=== PATIENT | male | born 1980 | race Two or more races ===

== ENCOUNTER 2018-12-13 12:22 | Inpatient (IN) | payer MEDICARE, OTHER ==
[~2018-12-13] VITALS: Ht 182.9 cm; Wt 82.2 kg
[2018-12-13] MEDS ORDERED: LAMO25 PO (13:00)
[2018-12-13] MEDS ORDERED: OLAN10TA6 PO (13:00)
[2018-12-13] MEDS ORDERED: PALI234D IM (13:00)
[2018-12-13] MEDS ORDERED: DIPH25 PO (13:00)
[2018-12-13] MEDS ORDERED: HALOPERIDOL LACTATE 5 MG/ML VIAL IM ONE (14:15)
[2018-12-13] MEDS ORDERED: LORazepam 2 MG/ML VIAL IM ONE (14:15)
[2018-12-13] MEDS ORDERED: DiphenhydrAMINE HCL 50 MG/ML VIAL IM ONE (14:15)
[2018-12-13 14:39] LABS: AMPHET/METH SCREEN,URINE POSITIVE (NEGATIVE); BARBITURATE SCREEN, URINE NEGATIVE (NEGATIVE); BENZODIAZEPINES SCREEN,URINE NEGATIVE (NEGATIVE); CANNABINOID SCREEN,URINE NEGATIVE (NEGATIVE); COCAINE SCREEN,URINE NEGATIVE (NEGATIVE); METHADONE SCREEN, URINE NEGATIVE (NEGATIVE); OPIATE SCREEN,URINE NEGATIVE (NEGATIVE)
[2018-12-13 14:40] LABS: PHENCYCLIDINE SCREEN,URINE NEGATIVE (NEGATIVE)
[2018-12-13 14:47] LABS: BASOPHILS % (AUTO) 0.3 % (0.0-2.0); EOSINOPHILS % (AUTO) 1.5 % (1.0-6.0); HEMATOCRIT 43.9 % (41-53); HEMOGLOBIN 15.2 g/dL (13.5-17.5); LYMPHOCYTES # (AUTO) 2.7 K/uL (1.0-4.8); MEAN CORPUSCULAR HEMOGLOBIN 31.7 pg (26.0-34.0); MEAN CORPUSCULAR HGB CONC 34.5 G/dL (31.0-37.0); MEAN CORPUSCULAR VOLUME 92 fL (80-100); MONOCYTES # (AUTO) 0.7 K/uL (0.1-1.0); MONOCYTES % (AUTO) 8.6 % (2.0-9.0); NEUTROPHILS # (AUTO) 4.7 K/uL (1.8-7.7); NEUTROPHILS % (AUTO) 56.6 % (40.0-70.0); PLATELET COUNT (AUTO) 258 K/uL (150-450); RED BLOOD CELL COUNT(AUTO) 4.78 MIL/uL (4.50-5.90)
[2018-12-13 14:57] LABS: ANION GAP 7 mmol/L (8-16); CALCIUM, TOTAL 8.7 mg/dL (8.8-10.5); CARBON DIOXIDE 28 mmol/L (22-29); CHLORIDE 104 mmol/L (98-107); GLOMERULAR FILTR. RATE CALC > 60 mL/min (>60); GLUCOSE,RANDOM 94 mg/dL (70-110); SODIUM SERUM 139 mmol/L (136-145); UREA NITROGEN, BLOOD 15 mg/dL (7-18)
[2018-12-13 15:02] LABS: ALANINE AMINOTRANSFERASE 38 U/L (12-78); ALKALINE PHOSPHATASE 109 U/L (46-116); ASPARTATE AMINOTRANSFERASE 28 U/L (15-37); BILIRUBIN,TOTAL 0.3 mg/dL (0.1-1.0); TOTAL PROTEIN, SERUM 7.5 g/dL (6.4-8.2)
[2018-12-13] MEDS ORDERED: HALOPERIDOL 5 MG TABLET PO PRN (16:00)
[2018-12-13] MEDS ORDERED: ZOLPIDEM TARTRATE 10 MG TABLET PO PRN (16:00)
[2018-12-13 18:23] VITALS: BP 115/55
[2018-12-13 18:43] VITALS: BP 115/55
[2018-12-13] MEDS ORDERED: IBUPROFEN 600 MG TABLET PO PRN (19:15)
[2018-12-13] MEDS ORDERED: CloNIDine HCL 0.1 MG TABLET PO PRN (19:15)
[2018-12-13] MEDS ORDERED: ONDANSETRON HCL 4 MG TABLET PO PRN (19:15)
[2018-12-13] MEDS ORDERED: ACETAMINOPHEN 325 MG TABLET PO PRN (19:15)
[2018-12-13] MEDS ORDERED: BACITRACIN 28.4 GM OINTMENT TP PRN (19:15)
[2018-12-13] MEDS ORDERED: ALBUTEROL SULFATE HFA 90 MCG/PUFF 8 GM INHALER IH PRN (19:15)
[2018-12-13] MEDS ORDERED: LOPERAMIDE HCL 2 MG CAPSULE PO PRN (19:15)
[2018-12-13] MEDS ORDERED: MAG HYDROX/AL HYDROX/SIMETH ES 30 ML SUSPENSION UDCUP PO PRN (19:15)
[2018-12-13] MEDS ORDERED: PETROLATUM,WHITE 28 GM JELLY TP PRN (19:15)
[2018-12-13] MEDS ORDERED: MAGNESIUM HYDROXIDE SUSPENSION 30 ML UDCUP PO PRN (19:15)
[2018-12-14 06:45] VITALS: BP 126/84
[2018-12-14 06:47] VITALS: BP 109/70
[2018-12-14 08:09] VITALS: BP 107/70
[2018-12-14] MEDS: OMEPRAZOLE 20 MG CAPSULE PO SCH (09:18)
[2018-12-14] MEDS: DOCUSATE SODIUM 100 MG CAPSULE PO SCH (09:18)
[2018-12-14] MEDS ORDERED: PALIPERIDONE PALMITATE 234 MG/1.5 ML SYRINGE IM ONE (12:30)
[2018-12-14] MEDS ORDERED: TUBERCULIN, PURIFIED PROTEIN DERIVATIVE 5 TU/0.1 ML SYRINGE ID ONE (13:15)
[2018-12-14 16:00] VITALS: BP 109/65
[2018-12-14] MEDS: ClonazePAM 0.5 MG TABLET PO SCH (16:39)
[2018-12-14] MEDS: LamoTRIgine 25 MG TABLET PO SCH (16:39)
[2018-12-14] MEDS: BENZTROPINE MESYLATE 1 MG TABLET PO SCH (16:39)
[2018-12-15 06:42] VITALS: BP 113/74
[2018-12-15] MEDS: DOCUSATE SODIUM 100 MG CAPSULE PO SCH (08:49)
[2018-12-15] MEDS: LamoTRIgine 25 MG TABLET PO SCH ×2 (08:49→16:48)
[2018-12-15] MEDS: BENZTROPINE MESYLATE 1 MG TABLET PO SCH ×2 (08:49→16:48)
[2018-12-15] MEDS: OMEPRAZOLE 20 MG CAPSULE PO SCH (08:49)
[2018-12-15] MEDS: ClonazePAM 0.5 MG TABLET PO SCH ×2 (08:49→16:48)
[2018-12-15] MEDS: LORazepam 2 MG TABLET PO PRN ×2 (12:48→16:48)
[2018-12-16 08:00] VITALS: BP 112/74
[2018-12-16] MEDS: BENZTROPINE MESYLATE 1 MG TABLET PO SCH (08:33)
[2018-12-16] MEDS: DOCUSATE SODIUM 100 MG CAPSULE PO SCH (08:33)
[2018-12-16] MEDS: ClonazePAM 0.5 MG TABLET PO SCH (08:33)
[2018-12-16] MEDS: LamoTRIgine 25 MG TABLET PO SCH (08:34)
[2018-12-16] MEDS: OMEPRAZOLE 20 MG CAPSULE PO SCH (08:34)
[2018-12-16] MEDS ORDERED: TUBERCULIN, PURIFIED PROTEIN DERIVATIVE 5 TU/0.1 ML SYRINGE ID ONE (09:45)
[2018-12-16] MEDS ORDERED: BENZ1TAB10 PO (11:19)
[2018-12-16] MEDS ORDERED: CLON.5 PO (11:19)
[2018-12-16] MEDS ORDERED: OMEP20 PO (11:19)
[2018-12-16] MEDS ORDERED: DOCU-275 PO (11:19)
[2018-12-16] MEDS ORDERED: PALI234D IM (11:21)
== END 2018-12-16 11:55 | disposition short-term general hospital (02) | DRG 885 ==
LOC: EMS 12:23 → UNDOADMIN 16:37 → B3A 16:37
PROVIDERS: ADMIT Psychiatry & Neurology Psychiatry; ATTEND Psychiatry & Neurology Psychiatry
DX: F20.0 Paranoid schizophrenia (principal); R45.851 Suicidal ideations; F31.9 Bipolar disorder, unspecified; G47.00 Insomnia, unspecified; K59.00 Constipation, unspecified
CPT/HCPCS: G0480; J1200; J1630; J2060

== ENCOUNTER 2018-12-16 12:01 | Inpatient (IN) | payer MEDICARE, MEDICAID ==
[~2018-12-16] VITALS: Ht 180.3 cm; Wt 81.2 kg
[~2018-12-16 12:01] MED LIST: BENZ1TAB10 PO; CLON.5 PO; DIPH25 PO; DIVA-78 PO; DOCU-275 PO; ESCI10TA PO; LAMO25TA25 PO; OLAN10TA6 PO; OMEP20 PO; PALI234D IM; TERB15CR TP
[2018-12-16 13:07] VITALS: BP 121/72
[2018-12-16] MEDS ORDERED: TUBERCULIN, PURIFIED PROTEIN DERIVATIVE 5 TU/0.1 ML SYRINGE ID ONE (13:45)
[2018-12-16] MEDS ORDERED: PNEUMOCOCCAL VACCINE POLYVALENT 0.5 ML VIAL [PPSV23] IM ONE (14:30)
[2018-12-16] MEDS ORDERED: INFLUENZA VIRUS VACCINE QVS 2019-20 (3YR+)/PF 60 MCG/0.5 ML SYRINGE IM ONE (14:30)
[2018-12-16] MEDS: ClonazePAM 0.5 MG TABLET PO SCH (17:11)
[2018-12-16] MEDS: BENZTROPINE MESYLATE 1 MG TABLET PO SCH (17:11)
[2018-12-16] MEDS: LamoTRIgine 25 MG TABLET PO SCH (17:11)
[2018-12-16] MEDS: LORazepam 2 MG TABLET PO PRN (20:01)
[2018-12-17] MEDS: BENZTROPINE MESYLATE 1 MG TABLET PO SCH ×2 (08:07→16:27)
[2018-12-17] MEDS: ClonazePAM 0.5 MG TABLET PO SCH ×2 (08:07→16:27)
[2018-12-17] MEDS: LamoTRIgine 25 MG TABLET PO SCH ×2 (08:07→16:27)
[2018-12-17] MEDS: LORazepam 2 MG TABLET PO PRN (15:05)
[2018-12-18] MEDS: ClonazePAM 0.5 MG TABLET PO SCH ×2 (08:38→16:29)
[2018-12-18] MEDS: BENZTROPINE MESYLATE 1 MG TABLET PO SCH ×2 (08:38→16:29)
[2018-12-18] MEDS: LamoTRIgine 25 MG TABLET PO SCH ×2 (08:38→16:29)
[2018-12-18] MEDS: NICOTINE POLACRILEX 2 MG LOZENGE PO PRN ×2 (13:06→18:19)
[2018-12-18] MEDS: LORazepam 2 MG TABLET PO PRN ×2 (13:39→19:11)
[2018-12-18 16:10] VITALS: BP 102/70
[2018-12-18] MEDS ORDERED: IBUPROFEN 600 MG TABLET PO PRN (20:15)
[2018-12-18] MEDS: ZOLPIDEM TARTRATE 10 MG TABLET PO PRN (21:07)
[2018-12-19] MEDS: BENZTROPINE MESYLATE 1 MG TABLET PO SCH ×2 (08:32→17:44)
[2018-12-19] MEDS: ClonazePAM 0.5 MG TABLET PO SCH ×2 (08:32→17:44)
[2018-12-19] MEDS: LamoTRIgine 25 MG TABLET PO SCH ×2 (08:32→17:44)
[2018-12-19 08:49] VITALS: BP 99/57
[2018-12-19] MEDS: LORazepam 2 MG TABLET PO PRN (14:25)
[2018-12-19 16:25] VITALS: BP 106/60
[2018-12-20 00:16] VITALS: BP 106/62
[2018-12-20 08:31] VITALS: BP 122/77
[2018-12-20] MEDS: BENZTROPINE MESYLATE 1 MG TABLET PO SCH ×2 (08:52→16:30)
[2018-12-20] MEDS: ClonazePAM 0.5 MG TABLET PO SCH ×2 (08:52→16:30)
[2018-12-20] MEDS: LamoTRIgine 25 MG TABLET PO SCH ×2 (08:52→16:30)
[2018-12-20] MEDS: LORazepam 2 MG TABLET PO PRN ×2 (12:37→18:21)
[2018-12-21 08:16] VITALS: BP 109/61
[2018-12-21] MEDS: LamoTRIgine 25 MG TABLET PO SCH ×2 (08:30→16:37)
[2018-12-21] MEDS: BENZTROPINE MESYLATE 1 MG TABLET PO SCH ×2 (08:30→16:37)
[2018-12-21] MEDS: ClonazePAM 0.5 MG TABLET PO SCH ×2 (08:30→16:37)
[2018-12-21] MEDS: LORazepam 2 MG TABLET PO PRN ×2 (11:58→19:38)
[2018-12-21 16:08] VITALS: BP 109/69
[2018-12-21] MEDS ORDERED: CloNIDine HCL 0.1 MG TABLET PO PRN (22:00)
[2018-12-21] MEDS ORDERED: PETROLATUM,WHITE 28 GM JELLY TP PRN (22:00)
[2018-12-21] MEDS ORDERED: LOPERAMIDE HCL 2 MG CAPSULE PO PRN (22:00)
[2018-12-21] MEDS ORDERED: ACETAMINOPHEN 325 MG TABLET PO PRN (22:00)
[2018-12-21] MEDS ORDERED: ONDANSETRON HCL 4 MG TABLET PO PRN (22:00)
[2018-12-21] MEDS ORDERED: BACITRACIN 28.4 GM OINTMENT TP PRN (22:00)
[2018-12-21] MEDS ORDERED: ALBUTEROL SULFATE HFA 90 MCG/PUFF 8 GM INHALER IH PRN (22:00)
[2018-12-21] MEDS ORDERED: MAGNESIUM HYDROXIDE SUSPENSION 30 ML UDCUP PO PRN (22:00)
[2018-12-22 08:12] LABS: CHOL/HDL RATIO 5.9 (4.2-7.3)
[2018-12-22] MEDS: ClonazePAM 0.5 MG TABLET PO SCH ×2 (08:18→16:26)
[2018-12-22] MEDS: OMEPRAZOLE 20 MG CAPSULE PO SCH (08:18)
[2018-12-22] MEDS: DOCUSATE SODIUM 100 MG CAPSULE PO SCH (08:18)
[2018-12-22] MEDS: BENZTROPINE MESYLATE 1 MG TABLET PO SCH ×2 (08:18→16:26)
[2018-12-22] MEDS: LamoTRIgine 25 MG TABLET PO SCH ×2 (08:19→16:27)
[2018-12-22 08:53] VITALS: BP 104/67
[2018-12-22] MEDS ORDERED: LamoTRIgine 25 MG TABLET PO SCH (09:00)
[2018-12-22 16:08] VITALS: BP 108/62
[2018-12-22] MEDS: LORazepam 2 MG TABLET PO PRN (19:49)
[2018-12-22] MEDS: ZOLPIDEM TARTRATE 10 MG TABLET PO PRN (21:31)
[2018-12-23 07:15] VITALS: BP 104/64
[2018-12-23 08:24] VITALS: BP 109/68
[2018-12-23] MEDS: DIAZEPAM 5 MG TABLET PO SCH ×2 (09:12→16:31)
[2018-12-23] MEDS: BENZTROPINE MESYLATE 1 MG TABLET PO SCH ×2 (09:12→16:31)
[2018-12-23] MEDS: OMEPRAZOLE 20 MG CAPSULE PO SCH (09:12)
[2018-12-23] MEDS: DOCUSATE SODIUM 100 MG CAPSULE PO SCH (09:12)
[2018-12-23] MEDS: LamoTRIgine 25 MG TABLET PO SCH ×2 (09:31→16:31)
[2018-12-23] MEDS: LORazepam 2 MG TABLET PO PRN ×2 (11:50→19:35)
[2018-12-23 16:31] VITALS: BP 107/67
[2018-12-23] MEDS: NICOTINE POLACRILEX 2 MG LOZENGE PO PRN (18:21)
[2018-12-24 01:09] VITALS: BP 108/69
[2018-12-24 08:24] VITALS: BP 118/72
[2018-12-24] MEDS: DIAZEPAM 5 MG TABLET PO SCH ×2 (08:32→16:21)
[2018-12-24] MEDS: DOCUSATE SODIUM 100 MG CAPSULE PO SCH (08:32)
[2018-12-24] MEDS: LamoTRIgine 25 MG TABLET PO SCH ×2 (08:33→16:21)
[2018-12-24] MEDS: OMEPRAZOLE 20 MG CAPSULE PO SCH (08:33)
[2018-12-24] MEDS: BENZTROPINE MESYLATE 1 MG TABLET PO SCH ×2 (08:33→16:21)
[2018-12-24 16:10] VITALS: BP 112/72
[2018-12-24] MEDS: LORazepam 2 MG TABLET PO PRN ×2 (19:05→23:05)
[2018-12-24] MEDS: ZOLPIDEM TARTRATE 10 MG TABLET PO PRN (22:29)
[2018-12-24] MEDS: NICOTINE POLACRILEX 2 MG LOZENGE PO PRN (23:32)
[2018-12-25 06:55] VITALS: BP 120/64
[2018-12-25 08:20] VITALS: BP 132/91
[2018-12-25] MEDS: DIAZEPAM 5 MG TABLET PO SCH ×2 (08:32→16:04)
[2018-12-25] MEDS: LamoTRIgine 25 MG TABLET PO SCH ×2 (08:32→16:04)
[2018-12-25] MEDS: OMEPRAZOLE 20 MG CAPSULE PO SCH (08:32)
[2018-12-25] MEDS: BENZTROPINE MESYLATE 1 MG TABLET PO SCH ×2 (08:32→16:04)
[2018-12-25] MEDS: DOCUSATE SODIUM 100 MG CAPSULE PO SCH (09:00)
[2018-12-25] MEDS: NICOTINE POLACRILEX 2 MG LOZENGE PO PRN ×4 (09:49→22:55)
[2018-12-25] MEDS: LORazepam 2 MG TABLET PO PRN ×3 (10:06→20:44)
[2018-12-25] MEDS: ZOLPIDEM TARTRATE 10 MG TABLET PO PRN (20:42)
[2018-12-26] MEDS: NICOTINE POLACRILEX 2 MG LOZENGE PO PRN ×5 (00:56→20:36)
[2018-12-26 01:10] VITALS: BP 122/78
[2018-12-26] MEDS: LORazepam 2 MG TABLET PO PRN ×3 (01:14→20:36)
[2018-12-26 08:31] VITALS: BP 124/81
[2018-12-26] MEDS: DOCUSATE SODIUM 100 MG CAPSULE PO SCH (09:00)
[2018-12-26] MEDS: BENZTROPINE MESYLATE 1 MG TABLET PO SCH ×2 (09:07→16:03)
[2018-12-26] MEDS: OMEPRAZOLE 20 MG CAPSULE PO SCH (09:07)
[2018-12-26] MEDS: LamoTRIgine 25 MG TABLET PO SCH ×2 (09:08→16:03)
[2018-12-26] MEDS: DIAZEPAM 5 MG TABLET PO SCH ×2 (09:08→16:03)
[2018-12-26 16:09] VITALS: BP 118/72
[2018-12-27 05:18] VITALS: BP 110/70
[2018-12-27] MEDS: BENZTROPINE MESYLATE 1 MG TABLET PO SCH ×2 (08:24→16:02)
[2018-12-27] MEDS: OMEPRAZOLE 20 MG CAPSULE PO SCH (08:24)
[2018-12-27] MEDS: DOCUSATE SODIUM 100 MG CAPSULE PO SCH (08:25)
[2018-12-27] MEDS: LamoTRIgine 25 MG TABLET PO SCH ×2 (08:25→16:02)
[2018-12-27] MEDS: DIAZEPAM 5 MG TABLET PO SCH ×2 (08:25→16:02)
[2018-12-27] MEDS: NICOTINE POLACRILEX 2 MG LOZENGE PO PRN ×6 (11:39→22:11)
[2018-12-27] MEDS: LORazepam 2 MG TABLET PO PRN ×3 (11:43→22:11)
[2018-12-27 17:20] VITALS: BP 113/64
[2018-12-27 18:10] VITALS: BP 115/78
[2018-12-27] MEDS: ZOLPIDEM TARTRATE 10 MG TABLET PO PRN (20:13)
[2018-12-28 00:20] VITALS: BP 101/69
[2018-12-28] MEDS: IBUPROFEN 800 MG TABLET PO PRN ×2 (00:23→12:27)
[2018-12-28] MEDS: NICOTINE POLACRILEX 2 MG LOZENGE PO PRN ×5 (00:23→20:31)
[2018-12-28 00:32] VITALS: BP 110/68
[2018-12-28] MEDS: LamoTRIgine 25 MG TABLET PO SCH ×2 (08:21→16:26)
[2018-12-28] MEDS: DIAZEPAM 5 MG TABLET PO SCH ×2 (08:21→16:26)
[2018-12-28] MEDS: BENZTROPINE MESYLATE 1 MG TABLET PO SCH ×2 (08:21→16:26)
[2018-12-28] MEDS: OMEPRAZOLE 20 MG CAPSULE PO SCH (08:21)
[2018-12-28] MEDS: DOCUSATE SODIUM 100 MG CAPSULE PO SCH (08:21)
[2018-12-28] MEDS: LORazepam 2 MG TABLET PO PRN ×3 (11:56→20:34)
[2018-12-28 16:15] VITALS: BP 117/68
[2018-12-28] MEDS: ZOLPIDEM TARTRATE 10 MG TABLET PO PRN (21:11)
[2018-12-28 21:12] VITALS: BP 110/67
[2018-12-28] MEDS: TiZANidine HCL 4 MG TABLET PO PRN (21:12)
[2018-12-29 02:00] VITALS: BP 120/81
[2018-12-29] MEDS: LORazepam 2 MG TABLET PO PRN ×4 (02:02→15:54)
[2018-12-29] MEDS: NICOTINE POLACRILEX 2 MG LOZENGE PO PRN ×6 (02:03→20:10)
[2018-12-29 08:07] VITALS: BP 118/67
[2018-12-29] MEDS: DOCUSATE SODIUM 100 MG CAPSULE PO SCH (08:58)
[2018-12-29] MEDS: BENZTROPINE MESYLATE 1 MG TABLET PO SCH ×2 (08:58→16:30)
[2018-12-29] MEDS: DIAZEPAM 5 MG TABLET PO SCH ×2 (08:58→20:09)
[2018-12-29] MEDS: OMEPRAZOLE 20 MG CAPSULE PO SCH (08:58)
[2018-12-29] MEDS: LamoTRIgine 25 MG TABLET PO SCH ×2 (08:58→16:30)
[2018-12-29 16:19] VITALS: BP 106/70
[2018-12-29] MEDS: ZOLPIDEM TARTRATE 10 MG TABLET PO PRN (21:01)
[2018-12-30 04:29] VITALS: BP 110/68
[2018-12-30 08:35] VITALS: BP 112/60
[2018-12-30] MEDS: LamoTRIgine 25 MG TABLET PO SCH ×2 (09:02→16:32)
[2018-12-30] MEDS: OMEPRAZOLE 20 MG CAPSULE PO SCH (09:02)
[2018-12-30] MEDS: DIAZEPAM 5 MG TABLET PO SCH ×2 (09:02→17:02)
[2018-12-30] MEDS: DOCUSATE SODIUM 100 MG CAPSULE PO SCH (09:02)
[2018-12-30] MEDS: BENZTROPINE MESYLATE 1 MG TABLET PO SCH ×2 (09:02→16:32)
[2018-12-30] MEDS: LORazepam 2 MG TABLET PO PRN ×3 (10:30→20:06)
[2018-12-30] MEDS: NICOTINE POLACRILEX 2 MG LOZENGE PO PRN ×5 (10:30→21:35)
[2018-12-30 16:12] VITALS: BP 109/80
[2018-12-30] MEDS: ZOLPIDEM TARTRATE 10 MG TABLET PO PRN (21:01)
[2018-12-31 03:00] VITALS: BP 115/83
[2018-12-31] MEDS: LORazepam 2 MG TABLET PO PRN ×4 (03:50→20:12)
[2018-12-31] MEDS: NICOTINE POLACRILEX 2 MG LOZENGE PO PRN ×7 (06:42→23:02)
[2018-12-31] MEDS: OMEPRAZOLE 20 MG CAPSULE PO SCH (08:05)
[2018-12-31] MEDS: BENZTROPINE MESYLATE 1 MG TABLET PO SCH ×2 (08:05→16:01)
[2018-12-31] MEDS: LamoTRIgine 25 MG TABLET PO SCH ×2 (08:05→16:00)
[2018-12-31] MEDS: DOCUSATE SODIUM 100 MG CAPSULE PO SCH (08:05)
[2018-12-31] MEDS: HALOPERIDOL 5 MG TABLET PO PRN (08:05)
[2018-12-31] MEDS: DIAZEPAM 5 MG TABLET PO SCH ×2 (08:05→16:00)
[2018-12-31 08:41] VITALS: BP 113/68
[2018-12-31 10:23] LABS: ANION GAP 10 mmol/L (8-16); CALCIUM, TOTAL 8.8 mg/dL (8.8-10.5); CARBON DIOXIDE 25 mmol/L (22-29); CHLORIDE 102 mmol/L (98-107); CREATININE 0.78 mg/dL (0.60-1.30); GLOMERULAR FILTR. RATE CALC > 60 mL/min (>60); GLUCOSE,RANDOM 109 mg/dL (70-110); POTASSIUM 4.2 mmol/L (3.5-5.1); SODIUM SERUM 137 mmol/L (136-145); UREA NITROGEN, BLOOD 14 mg/dL (7-18)
[2018-12-31 16:30] VITALS: BP 124/85
[2018-12-31] MEDS: ZOLPIDEM TARTRATE 10 MG TABLET PO PRN (21:20)
[2019-01-01 00:57] VITALS: BP 120/81
[2019-01-01] MEDS: NICOTINE POLACRILEX 2 MG LOZENGE PO PRN ×6 (07:44→21:45)
[2019-01-01] MEDS: LORazepam 2 MG TABLET PO PRN ×3 (07:49→19:36)
[2019-01-01] MEDS: DOCUSATE SODIUM 100 MG CAPSULE PO SCH (08:00)
[2019-01-01] MEDS: DIAZEPAM 5 MG TABLET PO SCH ×2 (08:01→16:30)
[2019-01-01] MEDS: LamoTRIgine 25 MG TABLET PO SCH ×2 (08:01→16:30)
[2019-01-01] MEDS: BENZTROPINE MESYLATE 1 MG TABLET PO SCH ×2 (08:01→16:30)
[2019-01-01] MEDS: OMEPRAZOLE 20 MG CAPSULE PO SCH (08:01)
[2019-01-01 08:06] VITALS: BP 118/85
[2019-01-01 16:10] VITALS: BP 116/78
[2019-01-01] MEDS: ZOLPIDEM TARTRATE 10 MG TABLET PO PRN (20:45)
[2019-01-02] MEDS: LORazepam 2 MG TABLET PO PRN ×4 (00:01→21:29)
[2019-01-02] MEDS: NICOTINE POLACRILEX 2 MG LOZENGE PO PRN ×8 (00:01→22:34)
[2019-01-02 00:02] VITALS: BP 120/81
[2019-01-02 08:05] VITALS: BP 115/81
[2019-01-02] MEDS: DOCUSATE SODIUM 100 MG CAPSULE PO SCH (08:26)
[2019-01-02] MEDS: OMEPRAZOLE 20 MG CAPSULE PO SCH (08:26)
[2019-01-02] MEDS: DIAZEPAM 5 MG TABLET PO SCH ×2 (08:26→18:29)
[2019-01-02] MEDS: BENZTROPINE MESYLATE 1 MG TABLET PO SCH ×2 (08:26→16:37)
[2019-01-02] MEDS: LamoTRIgine 25 MG TABLET PO SCH ×2 (08:26→16:37)
[2019-01-02 16:09] VITALS: BP 117/87
[2019-01-02] MEDS: ZOLPIDEM TARTRATE 10 MG TABLET PO PRN (20:48)
[2019-01-02 23:52] VITALS: BP 115/86
[2019-01-03] MEDS: NICOTINE POLACRILEX 2 MG LOZENGE PO PRN ×8 (00:35→20:33)
[2019-01-03] MEDS: MAG HYDROX/AL HYDROX/SIMETH ES 30 ML SUSPENSION UDCUP PO PRN (01:14)
[2019-01-03 03:06] VITALS: BP 110/73
[2019-01-03] MEDS: LORazepam 2 MG TABLET PO PRN ×3 (03:07→19:07)
[2019-01-03] MEDS: BENZTROPINE MESYLATE 1 MG TABLET PO SCH ×2 (08:18→16:02)
[2019-01-03] MEDS: DOCUSATE SODIUM 100 MG CAPSULE PO SCH (08:18)
[2019-01-03] MEDS: OMEPRAZOLE 20 MG CAPSULE PO SCH (08:18)
[2019-01-03] MEDS: LamoTRIgine 25 MG TABLET PO SCH ×2 (08:18→16:03)
[2019-01-03] MEDS: DIAZEPAM 5 MG TABLET PO SCH ×2 (08:18→16:02)
[2019-01-03 08:40] VITALS: BP 122/80
[2019-01-03] MEDS: ASPIRIN/ACETAMINOPHEN/CAFFEINE 250-250-65 MG TABLET PO PRN (15:45)
[2019-01-03 16:26] VITALS: BP 107/79
[2019-01-03] MEDS: ZOLPIDEM TARTRATE 10 MG TABLET PO PRN (20:59)
[2019-01-04] MEDS: LORazepam 2 MG TABLET PO PRN ×4 (00:06→16:01)
[2019-01-04 00:36] VITALS: BP 110/68
[2019-01-04] MEDS: NICOTINE POLACRILEX 2 MG LOZENGE PO PRN ×6 (00:51→20:19)
[2019-01-04 08:16] VITALS: BP 124/88
[2019-01-04] MEDS: LamoTRIgine 25 MG TABLET PO SCH ×2 (08:19→16:28)
[2019-01-04] MEDS: DOCUSATE SODIUM 100 MG CAPSULE PO SCH (08:20)
[2019-01-04] MEDS: DIAZEPAM 5 MG TABLET PO SCH ×2 (08:20→19:02)
[2019-01-04] MEDS: OMEPRAZOLE 20 MG CAPSULE PO SCH (08:20)
[2019-01-04] MEDS: BENZTROPINE MESYLATE 1 MG TABLET PO SCH ×2 (08:20→16:28)
[2019-01-04] MEDS: ASPIRIN/ACETAMINOPHEN/CAFFEINE 250-250-65 MG TABLET PO PRN ×2 (08:23→17:41)
[2019-01-04 16:02] VITALS: BP 117/77
[2019-01-04 17:43] VITALS: BP 122/77
[2019-01-04] MEDS: ZOLPIDEM TARTRATE 10 MG TABLET PO PRN (21:48)
[2019-01-05] MEDS ORDERED: ASPIRIN/ACETAMINOPHEN/CAFFEINE 250-250-65 MG TABLET PO PRN
[2019-01-05] MEDS: LORazepam 2 MG TABLET PO PRN ×4 (00:23→16:20)
[2019-01-05] MEDS: NICOTINE POLACRILEX 2 MG LOZENGE PO PRN ×7 (00:23→21:38)
[2019-01-05 01:09] VITALS: BP 124/79
[2019-01-05 03:10] VITALS: BP 105/88
[2019-01-05] MEDS: SUMAtriptan SUCCINATE 25 MG TABLET PO PRN (03:13)
[2019-01-05 06:46] VITALS: BP 122/90
[2019-01-05 08:06] VITALS: BP 137/85
[2019-01-05] MEDS: DIAZEPAM 5 MG TABLET PO SCH ×2 (08:22→19:06)
[2019-01-05] MEDS: LamoTRIgine 25 MG TABLET PO SCH ×2 (08:22→16:33)
[2019-01-05] MEDS: BENZTROPINE MESYLATE 1 MG TABLET PO SCH ×2 (08:22→16:33)
[2019-01-05] MEDS: OMEPRAZOLE 20 MG CAPSULE PO SCH (08:22)
[2019-01-05] MEDS: DOCUSATE SODIUM 100 MG CAPSULE PO SCH (09:00)
[2019-01-05 16:51] VITALS: BP 122/78
[2019-01-05] MEDS: ASPIRIN/ACETAMINOPHEN/CAFFEINE 250-250-65 MG TABLET PO PRN (22:16)
[2019-01-05 22:17] VITALS: BP 118/89
[2019-01-05] MEDS: ZOLPIDEM TARTRATE 10 MG TABLET PO PRN (22:36)
[2019-01-06] MEDS: NICOTINE POLACRILEX 2 MG LOZENGE PO PRN ×2 (00:31→04:59)
[2019-01-06 00:38] VITALS: BP 122/83
[2019-01-06] MEDS: LORazepam 2 MG TABLET PO PRN ×3 (01:43→20:11)
[2019-01-06 05:51] VITALS: BP 138/82
[2019-01-06] MEDS: ASPIRIN/ACETAMINOPHEN/CAFFEINE 250-250-65 MG TABLET PO PRN ×3 (06:02→19:55)
[2019-01-06] MEDS: OMEPRAZOLE 20 MG CAPSULE PO SCH (08:15)
[2019-01-06] MEDS: DOCUSATE SODIUM 100 MG CAPSULE PO SCH (08:15)
[2019-01-06] MEDS: BENZTROPINE MESYLATE 1 MG TABLET PO SCH ×2 (08:15→17:42)
[2019-01-06] MEDS: DIAZEPAM 5 MG TABLET PO SCH ×2 (08:15→17:42)
[2019-01-06] MEDS: LamoTRIgine 25 MG TABLET PO SCH ×2 (08:15→17:42)
[2019-01-06 08:26] VITALS: BP 123/81
[2019-01-06] MEDS: NICOTINE 21 MG/24 HOUR PATCH TD SCH (08:44)
[2019-01-06] MEDS ORDERED: BENZOCAINE 10% 7 GM GEL TP PRN (12:30)
[2019-01-06 13:14] VITALS: BP 127/72
[2019-01-06 19:51] VITALS: BP 129/89
[2019-01-06] MEDS: ZOLPIDEM TARTRATE 10 MG TABLET PO PRN (20:54)
[2019-01-07 00:25] VITALS: BP 112/80
[2019-01-07] MEDS: LORazepam 2 MG TABLET PO PRN ×4 (01:58→19:15)
[2019-01-07] MEDS: ASPIRIN/ACETAMINOPHEN/CAFFEINE 250-250-65 MG TABLET PO PRN ×3 (03:01→17:45)
[2019-01-07] MEDS: BENZTROPINE MESYLATE 1 MG TABLET PO SCH ×2 (08:17→16:28)
[2019-01-07] MEDS: OMEPRAZOLE 20 MG CAPSULE PO SCH (08:17)
[2019-01-07] MEDS: DIAZEPAM 5 MG TABLET PO SCH ×2 (08:17→16:28)
[2019-01-07] MEDS: NICOTINE 21 MG/24 HOUR PATCH TD SCH (08:17)
[2019-01-07] MEDS: DOCUSATE SODIUM 100 MG CAPSULE PO SCH (08:17)
[2019-01-07] MEDS: LamoTRIgine 25 MG TABLET PO SCH ×2 (08:21→16:28)
[2019-01-07 08:39] VITALS: BP 122/86
[2019-01-07 10:21] VITALS: BP 142/95
[2019-01-07 16:10] VITALS: BP 139/89
[2019-01-07 18:46] VITALS: BP 120/83
[2019-01-07] MEDS: ZOLPIDEM TARTRATE 10 MG TABLET PO PRN (21:16)
[2019-01-08 00:25] VITALS: BP 110/83
[2019-01-08] MEDS: ASPIRIN/ACETAMINOPHEN/CAFFEINE 250-250-65 MG TABLET PO PRN ×3 (00:49→22:37)
[2019-01-08] MEDS: MAG HYDROX/AL HYDROX/SIMETH ES 30 ML SUSPENSION UDCUP PO PRN (02:37)
[2019-01-08] MEDS: LORazepam 2 MG TABLET PO PRN ×2 (02:37→16:53)
[2019-01-08 08:34] VITALS: BP 127/90
[2019-01-08] MEDS: DIAZEPAM 5 MG TABLET PO SCH ×2 (09:40→16:53)
[2019-01-08] MEDS: DOCUSATE SODIUM 100 MG CAPSULE PO SCH (09:40)
[2019-01-08] MEDS: OMEPRAZOLE 20 MG CAPSULE PO SCH (09:40)
[2019-01-08] MEDS: NICOTINE 21 MG/24 HOUR PATCH TD SCH (09:40)
[2019-01-08] MEDS: LamoTRIgine 25 MG TABLET PO SCH ×2 (09:40→16:53)
[2019-01-08] MEDS: BENZTROPINE MESYLATE 1 MG TABLET PO SCH ×2 (09:40→16:53)
[2019-01-08 16:06] VITALS: BP 127/82
[2019-01-08] MEDS: ZOLPIDEM TARTRATE 10 MG TABLET PO PRN (22:36)
[2019-01-08 22:48] VITALS: BP 126/108
[2019-01-09] MEDS: LORazepam 2 MG TABLET PO PRN (02:42)
[2019-01-09] MEDS: ASPIRIN/ACETAMINOPHEN/CAFFEINE 250-250-65 MG TABLET PO PRN ×3 (05:10→20:12)
[2019-01-09 08:16] VITALS: BP 140/90
[2019-01-09] MEDS: OMEPRAZOLE 20 MG CAPSULE PO SCH (08:55)
[2019-01-09] MEDS: LamoTRIgine 25 MG TABLET PO SCH ×2 (08:55→16:30)
[2019-01-09] MEDS: BENZTROPINE MESYLATE 1 MG TABLET PO SCH ×2 (08:55→17:06)
[2019-01-09] MEDS: DOCUSATE SODIUM 100 MG CAPSULE PO SCH (08:56)
[2019-01-09] MEDS: NICOTINE 21 MG/24 HOUR PATCH TD SCH (08:56)
[2019-01-09] MEDS: DIAZEPAM 5 MG TABLET PO SCH ×2 (08:56→16:30)
[2019-01-09 16:06] VITALS: BP 125/83
[2019-01-09] MEDS: ZOLPIDEM TARTRATE 10 MG TABLET PO PRN (20:12)
[2019-01-10 01:01] VITALS: BP 131/81
[2019-01-10] MEDS: LORazepam 2 MG TABLET PO PRN (01:02)
[2019-01-10 02:46] VITALS: BP 124/74
[2019-01-10] MEDS: ASPIRIN/ACETAMINOPHEN/CAFFEINE 250-250-65 MG TABLET PO PRN ×2 (02:46→19:59)
[2019-01-10 08:20] LABS: HEMATOCRIT 43.6 % (41-53); HEMOGLOBIN 15.4 g/dL (13.5-17.5); MEAN CORPUSCULAR HEMOGLOBIN 31.7 pg (26.0-34.0); MEAN CORPUSCULAR HGB CONC 35.2 G/dL (31.0-37.0); MEAN CORPUSCULAR VOLUME 90 fL (80-100); PLATELET COUNT (AUTO) 266 K/uL (150-450); RED BLOOD CELL COUNT(AUTO) 4.85 MIL/uL (4.50-5.90); RED CELL DISTRIBUTION WIDTH 12.5 % (11.5-14.5)
[2019-01-10] MEDS: DIAZEPAM 5 MG TABLET PO SCH ×2 (08:33→16:55)
[2019-01-10] MEDS: NICOTINE 21 MG/24 HOUR PATCH TD SCH (08:33)
[2019-01-10 08:41] VITALS: BP 119/87
[2019-01-10] MEDS: LamoTRIgine 25 MG TABLET PO SCH ×2 (09:00→16:55)
[2019-01-10] MEDS: BENZTROPINE MESYLATE 1 MG TABLET PO SCH ×2 (09:00→16:55)
[2019-01-10] MEDS: DOCUSATE SODIUM 100 MG CAPSULE PO SCH (09:00)
[2019-01-10] MEDS: OMEPRAZOLE 20 MG CAPSULE PO SCH (09:00)
[2019-01-10 09:12] LABS: HEMOGLOBIN A1C 5.5 % (4.5-6.2)
[2019-01-10 09:22] LABS: ANION GAP 14 mmol/L (8-16); CALCIUM, TOTAL 9.1 mg/dL (8.8-10.5); CARBON DIOXIDE 23 mmol/L (22-29); CHLORIDE 101 mmol/L (98-107); CHOL/HDL RATIO 4.2 (4.2-7.3); CHOLESTEROL 197 mg/dL (131-200); CREATININE 0.93 mg/dL (0.60-1.30); GLOMERULAR FILTR. RATE CALC > 60 mL/min (>60); GLUCOSE,RANDOM 120 mg/dL (70-110); HDL CHOLESTEROL 47 mg/dL (40-60); LDL CHOL (CALC.) 136 mg/dL (0-130); PHOSPHORUS 3.9 mg/dL (2.5-4.9); POTASSIUM 3.7 mmol/L (3.5-5.1); SODIUM SERUM 138 mmol/L (136-145); THYROID STIMULATING HORMONE 0.76 uIU/mL (0.36-3.74); TRIGLYCERIDES 71 mg/dL (15-150); UREA NITROGEN, BLOOD 18 mg/dL (7-18)
[2019-01-10 09:52] LABS: BAND NEUTROPHILS % (MANUAL) 1 % (0-5); EOSINOPHILS % (MANUAL) 1 % (1-6); LYMPHOCYTES % (MANUAL) 20 % (22-44); MONOCYTES % (MANUAL) 11 % (2-9); SEGMENTED NEUTROPHILS % 67 % (40-70)
[2019-01-10] MEDS ORDERED: DOCUSATE SODIUM 100 MG CAPSULE PO PRN (21:30)
[2019-01-10] MEDS ORDERED: OMEPRAZOLE 20 MG CAPSULE PO PRN (21:30)
[2019-01-10] MEDS: ZOLPIDEM TARTRATE 10 MG TABLET PO PRN (22:44)
[2019-01-11 02:00] VITALS: BP 132/89
[2019-01-11] MEDS: LORazepam 2 MG TABLET PO PRN (02:02)
[2019-01-11] MEDS: ASPIRIN/ACETAMINOPHEN/CAFFEINE 250-250-65 MG TABLET PO PRN ×3 (02:03→23:07)
[2019-01-11 08:07] VITALS: BP 127/78
[2019-01-11] MEDS: NICOTINE 21 MG/24 HOUR PATCH TD SCH (08:59)
[2019-01-11] MEDS: DIAZEPAM 5 MG TABLET PO SCH ×2 (08:59→16:28)
[2019-01-11] MEDS: BENZTROPINE MESYLATE 1 MG TABLET PO SCH ×2 (08:59→16:28)
[2019-01-11] MEDS: LamoTRIgine 25 MG TABLET PO SCH ×2 (08:59→16:28)
[2019-01-11 16:16] VITALS: BP 119/88
[2019-01-11] MEDS: ARIPiprazole 10 MG TABLET PO SCH (21:13)
[2019-01-11 23:01] VITALS: BP 128/93
[2019-01-11 23:16] VITALS: BP 121/90
[2019-01-12 00:36] VITALS: BP 109/78
[2019-01-12 06:55] VITALS: BP 112/72
[2019-01-12] MEDS: ASPIRIN/ACETAMINOPHEN/CAFFEINE 250-250-65 MG TABLET PO PRN (06:59)
[2019-01-12] MEDS: DIAZEPAM 5 MG TABLET PO SCH ×2 (08:05→16:32)
[2019-01-12] MEDS: LamoTRIgine 25 MG TABLET PO SCH ×2 (08:05→16:32)
[2019-01-12] MEDS: NICOTINE 21 MG/24 HOUR PATCH TD SCH (08:07)
[2019-01-12 08:10] VITALS: BP 125/90
[2019-01-12 08:57] VITALS: BP 125/90
[2019-01-12 16:08] VITALS: BP 123/91
[2019-01-12] MEDS: ARIPiprazole 10 MG TABLET PO SCH (21:00)
[2019-01-13 00:59] VITALS: BP 139/85
[2019-01-13] MEDS: NICOTINE 21 MG/24 HOUR PATCH TD SCH (09:05)
[2019-01-13] MEDS: LamoTRIgine 25 MG TABLET PO SCH ×2 (09:06→16:31)
[2019-01-13] MEDS: DIAZEPAM 5 MG TABLET PO SCH ×2 (09:06→16:31)
[2019-01-13 16:03] VITALS: BP 121/90
[2019-01-13] MEDS: PALIPERIDONE PALMITATE 234 MG/1.5 ML SYRINGE IM SCH (16:31)
[2019-01-13] MEDS: ZOLPIDEM TARTRATE 10 MG TABLET PO PRN (22:00)
[2019-01-14 02:28] VITALS: BP 130/82
[2019-01-14 08:15] VITALS: BP 114/88
[2019-01-14] MEDS: DIAZEPAM 5 MG TABLET PO SCH ×2 (08:44→16:05)
[2019-01-14] MEDS: LamoTRIgine 25 MG TABLET PO SCH ×2 (08:44→16:05)
[2019-01-14] MEDS: NICOTINE 21 MG/24 HOUR PATCH TD SCH (08:44)
[2019-01-14] MEDS: ASPIRIN/ACETAMINOPHEN/CAFFEINE 250-250-65 MG TABLET PO PRN ×2 (11:27→21:29)
[2019-01-14] MEDS ORDERED: LORazepam 2 MG/ML VIAL ONE (12:36)
[2019-01-14] MEDS ORDERED: LORazepam 2 MG/ML VIAL IM ONE (12:45)
[2019-01-14] MEDS ORDERED: HALOPERIDOL LACTATE 5 MG/ML VIAL IM ONE (12:45)
[2019-01-14 13:53] VITALS: BP 125/78
[2019-01-14 16:03] VITALS: BP 130/80
[2019-01-14] MEDS: ZOLPIDEM TARTRATE 10 MG TABLET PO PRN (21:29)
[2019-01-15 07:03] VITALS: BP 129/80
[2019-01-15 08:22] VITALS: BP 122/91
[2019-01-15] MEDS: LamoTRIgine 25 MG TABLET PO SCH ×2 (08:29→16:29)
[2019-01-15] MEDS: ASPIRIN/ACETAMINOPHEN/CAFFEINE 250-250-65 MG TABLET PO PRN ×2 (08:29→16:45)
[2019-01-15] MEDS: DIAZEPAM 5 MG TABLET PO SCH ×2 (08:29→16:29)
[2019-01-15] MEDS: NICOTINE 21 MG/24 HOUR PATCH TD SCH (08:29)
[2019-01-15 16:25] VITALS: BP 128/78
[2019-01-15] MEDS: BENZTROPINE MESYLATE 1 MG TABLET PO SCH (20:21)
[2019-01-15] MEDS: ZOLPIDEM TARTRATE 10 MG TABLET PO PRN (20:56)
[2019-01-16 01:30] VITALS: BP 114/78
[2019-01-16] MEDS: ASPIRIN/ACETAMINOPHEN/CAFFEINE 250-250-65 MG TABLET PO PRN ×3 (01:33→16:42)
[2019-01-16 08:10] VITALS: BP 123/78
[2019-01-16] MEDS: NICOTINE 21 MG/24 HOUR PATCH TD SCH (08:31)
[2019-01-16] MEDS: DIAZEPAM 5 MG TABLET PO SCH ×2 (08:31→16:01)
[2019-01-16] MEDS: LamoTRIgine 25 MG TABLET PO SCH ×2 (08:31→16:01)
[2019-01-16] MEDS: BENZTROPINE MESYLATE 1 MG TABLET PO SCH ×2 (08:31→16:02)
[2019-01-16] MEDS: ZOLPIDEM TARTRATE 10 MG TABLET PO PRN (22:23)
[2019-01-17 05:00] VITALS: BP 122/76
[2019-01-17] MEDS: HALOPERIDOL 5 MG TABLET PO PRN (06:18)
[2019-01-17] MEDS: BENZTROPINE MESYLATE 1 MG TABLET PO SCH ×2 (08:04→16:33)
[2019-01-17] MEDS: LamoTRIgine 25 MG TABLET PO SCH ×2 (08:04→16:33)
[2019-01-17] MEDS: DIAZEPAM 5 MG TABLET PO SCH ×2 (08:04→16:33)
[2019-01-17] MEDS: ASPIRIN/ACETAMINOPHEN/CAFFEINE 250-250-65 MG TABLET PO PRN ×2 (08:05→16:23)
[2019-01-17] MEDS: NICOTINE 21 MG/24 HOUR PATCH TD SCH (08:05)
[2019-01-17 16:19] VITALS: BP 122/78
[2019-01-17] MEDS: ZOLPIDEM TARTRATE 10 MG TABLET PO PRN (22:15)
[2019-01-18 00:38] VITALS: BP 116/73
[2019-01-18] MEDS: NICOTINE 21 MG/24 HOUR PATCH TD SCH (09:07)
[2019-01-18] MEDS: BENZTROPINE MESYLATE 1 MG TABLET PO SCH ×2 (09:08→16:35)
[2019-01-18] MEDS: LamoTRIgine 25 MG TABLET PO SCH ×2 (09:08→16:35)
[2019-01-18] MEDS: DIAZEPAM 5 MG TABLET PO SCH ×2 (09:08→16:35)
[2019-01-18] MEDS: ASPIRIN/ACETAMINOPHEN/CAFFEINE 250-250-65 MG TABLET PO PRN ×2 (09:09→20:58)
[2019-01-18 20:59] VITALS: BP 123/85
[2019-01-18] MEDS: ZOLPIDEM TARTRATE 10 MG TABLET PO PRN (21:02)
[2019-01-19 00:38] VITALS: BP 122/79
[2019-01-19] MEDS ORDERED: LORazepam 2 MG/ML VIAL IM ONE (04:00)
[2019-01-19] MEDS ORDERED: DiphenhydrAMINE HCL 50 MG/ML VIAL IM ONE (04:00)
[2019-01-19] MEDS ORDERED: HALOPERIDOL LACTATE 5 MG/ML VIAL IM ONE (04:00)
[2019-01-19] MEDS ORDERED: DiphenhydrAMINE HCL 50 MG/ML VIAL ONE (04:02)
[2019-01-19] MEDS ORDERED: HALOPERIDOL LACTATE 5 MG/ML VIAL ONE (04:02)
[2019-01-19] MEDS ORDERED: LORazepam 2 MG/ML VIAL ONE (04:02)
[2019-01-19 08:00] VITALS: BP 106/60
[2019-01-19] MEDS: DIAZEPAM 5 MG TABLET PO SCH ×2 (08:56→16:30)
[2019-01-19] MEDS: LamoTRIgine 25 MG TABLET PO SCH ×2 (08:56→16:29)
[2019-01-19] MEDS: BENZTROPINE MESYLATE 1 MG TABLET PO SCH ×2 (08:56→16:29)
[2019-01-19] MEDS: NICOTINE 21 MG/24 HOUR PATCH TD SCH ×3 (08:56→09:47)
[2019-01-19 16:16] VITALS: BP 121/80
[2019-01-19] MEDS: ASPIRIN/ACETAMINOPHEN/CAFFEINE 250-250-65 MG TABLET PO PRN (16:38)
[2019-01-19] MEDS: ZOLPIDEM TARTRATE 10 MG TABLET PO PRN (20:41)
[2019-01-20 04:14] VITALS: BP 110/62
[2019-01-20] MEDS: LamoTRIgine 25 MG TABLET PO SCH ×2 (07:44→16:29)
[2019-01-20] MEDS: BENZTROPINE MESYLATE 1 MG TABLET PO SCH ×2 (07:44→16:29)
[2019-01-20] MEDS: DIAZEPAM 5 MG TABLET PO SCH ×2 (07:44→16:29)
[2019-01-20 07:55] VITALS: BP 117/76
[2019-01-20] MEDS: NICOTINE 21 MG/24 HOUR PATCH TD SCH (08:02)
[2019-01-20] MEDS: OLANZapine 5 MG TABLET PO SCH ×2 (10:08→16:29)
[2019-01-20 14:57] VITALS: BP 125/88
[2019-01-20] MEDS: ASPIRIN/ACETAMINOPHEN/CAFFEINE 250-250-65 MG TABLET PO PRN (14:57)
[2019-01-20 16:20] VITALS: BP 123/90
[2019-01-20] MEDS: ZOLPIDEM TARTRATE 10 MG TABLET PO PRN (20:56)
[2019-01-21] MEDS: ASPIRIN/ACETAMINOPHEN/CAFFEINE 250-250-65 MG TABLET PO PRN ×2 (03:19→16:00)
[2019-01-21 03:24] VITALS: BP 125/85
[2019-01-21 08:01] VITALS: BP 126/96
[2019-01-21] MEDS: BENZTROPINE MESYLATE 1 MG TABLET PO SCH ×2 (08:47→16:33)
[2019-01-21] MEDS: DIAZEPAM 5 MG TABLET PO SCH ×2 (08:47→16:33)
[2019-01-21] MEDS: OLANZapine 5 MG TABLET PO SCH ×2 (08:47→16:33)
[2019-01-21] MEDS: LamoTRIgine 25 MG TABLET PO SCH ×2 (08:47→16:33)
[2019-01-21] MEDS: NICOTINE 21 MG/24 HOUR PATCH TD SCH (08:47)
[2019-01-21] MEDS: SUMAtriptan SUCCINATE 25 MG TABLET PO PRN (08:49)
[2019-01-21 16:00] VITALS: BP 123/80
[2019-01-21 17:00] VITALS: BP 128/84
[2019-01-21] MEDS: TiZANidine HCL 4 MG TABLET PO PRN (18:50)
[2019-01-21 18:51] VITALS: BP 113/82
[2019-01-21] MEDS: ZOLPIDEM TARTRATE 10 MG TABLET PO PRN (20:47)
[2019-01-22 02:58] VITALS: BP 120/79
[2019-01-22] MEDS: SUMAtriptan SUCCINATE 25 MG TABLET PO PRN ×4 (03:00→18:47)
[2019-01-22] MEDS: HALOPERIDOL 5 MG TABLET PO PRN ×2 (03:00→22:06)
[2019-01-22 08:12] VITALS: BP 127/84
[2019-01-22] MEDS: BENZTROPINE MESYLATE 1 MG TABLET PO SCH ×2 (08:39→16:27)
[2019-01-22] MEDS: DIAZEPAM 5 MG TABLET PO SCH ×2 (08:40→16:26)
[2019-01-22] MEDS: NICOTINE 21 MG/24 HOUR PATCH TD SCH (08:40)
[2019-01-22] MEDS: OLANZapine 5 MG TABLET PO SCH ×2 (08:40→16:30)
[2019-01-22] MEDS: LamoTRIgine 25 MG TABLET PO SCH ×2 (08:40→16:26)
[2019-01-22 12:34] VITALS: BP 120/73
[2019-01-22 16:01] VITALS: BP 124/81
[2019-01-22] MEDS: ASPIRIN/ACETAMINOPHEN/CAFFEINE 250-250-65 MG TABLET PO PRN (16:27)
[2019-01-22] MEDS: ZOLPIDEM TARTRATE 10 MG TABLET PO PRN (22:05)
[2019-01-23 02:26] VITALS: BP 110/80
[2019-01-23] MEDS: SUMAtriptan SUCCINATE 25 MG TABLET PO PRN ×3 (02:35→16:14)
[2019-01-23] MEDS: TiZANidine HCL 4 MG TABLET PO PRN (02:35)
[2019-01-23 08:00] VITALS: BP 121/74
[2019-01-23] MEDS: LamoTRIgine 25 MG TABLET PO SCH ×2 (08:01→16:01)
[2019-01-23] MEDS: BENZTROPINE MESYLATE 1 MG TABLET PO SCH ×2 (08:01→16:01)
[2019-01-23] MEDS: ASPIRIN/ACETAMINOPHEN/CAFFEINE 250-250-65 MG TABLET PO PRN (08:01)
[2019-01-23] MEDS: OLANZapine 5 MG TABLET PO SCH ×2 (08:01→16:01)
[2019-01-23] MEDS: DIAZEPAM 5 MG TABLET PO SCH ×2 (08:01→16:01)
[2019-01-23] MEDS: NICOTINE 21 MG/24 HOUR PATCH TD SCH (08:02)
[2019-01-23 08:03] VITALS: BP 127/65
[2019-01-23 10:40] VITALS: BP 121/74
[2019-01-23 16:00] VITALS: BP 127/99
[2019-01-23] MEDS: ZOLPIDEM TARTRATE 10 MG TABLET PO PRN (20:07)
[2019-01-24 04:53] VITALS: BP 114/83
[2019-01-24] MEDS: TiZANidine HCL 4 MG TABLET PO PRN (04:55)
[2019-01-24] MEDS: SUMAtriptan SUCCINATE 25 MG TABLET PO PRN ×3 (04:55→21:54)
[2019-01-24] MEDS: LamoTRIgine 25 MG TABLET PO SCH ×2 (08:03→16:33)
[2019-01-24] MEDS: DIAZEPAM 5 MG TABLET PO SCH ×2 (08:03→16:33)
[2019-01-24] MEDS: NICOTINE 21 MG/24 HOUR PATCH TD SCH (08:03)
[2019-01-24] MEDS: OLANZapine 5 MG TABLET PO SCH ×2 (08:03→16:33)
[2019-01-24] MEDS: BENZTROPINE MESYLATE 1 MG TABLET PO SCH ×2 (08:03→16:33)
[2019-01-24 08:33] VITALS: BP 124/86
[2019-01-24 16:01] VITALS: BP 127/90
[2019-01-24] MEDS: ASPIRIN/ACETAMINOPHEN/CAFFEINE 250-250-65 MG TABLET PO PRN (16:42)
[2019-01-24] MEDS: ZOLPIDEM TARTRATE 10 MG TABLET PO PRN (20:46)
[2019-01-24 21:56] VITALS: BP 122/90
[2019-01-25 00:08] VITALS: BP 122/84
[2019-01-25 08:04] VITALS: BP 125/84
[2019-01-25] MEDS: LamoTRIgine 25 MG TABLET PO SCH ×2 (08:06→16:02)
[2019-01-25] MEDS: BENZTROPINE MESYLATE 1 MG TABLET PO SCH ×2 (08:06→16:02)
[2019-01-25] MEDS: NICOTINE 21 MG/24 HOUR PATCH TD SCH (08:06)
[2019-01-25] MEDS: DIAZEPAM 5 MG TABLET PO SCH ×2 (08:06→16:03)
[2019-01-25] MEDS: SUMAtriptan SUCCINATE 25 MG TABLET PO PRN ×3 (08:08→21:02)
[2019-01-25] MEDS: OLANZapine 5 MG TABLET PO SCH ×2 (08:11→16:02)
[2019-01-25 14:24] VITALS: BP 146/79
[2019-01-25 18:18] VITALS: BP 118/80
[2019-01-25] MEDS: ZOLPIDEM TARTRATE 10 MG TABLET PO PRN (20:58)
[2019-01-25 21:02] VITALS: BP 128/78
[2019-01-26 01:02] VITALS: BP 114/70
[2019-01-26] MEDS: ASPIRIN/ACETAMINOPHEN/CAFFEINE 250-250-65 MG TABLET PO PRN (06:44)
[2019-01-26 06:45] VITALS: BP 129/83
[2019-01-26 08:02] VITALS: BP 123/79
[2019-01-26] MEDS: LamoTRIgine 25 MG TABLET PO SCH ×2 (08:44→16:28)
[2019-01-26] MEDS: DIAZEPAM 5 MG TABLET PO SCH ×2 (08:45→16:28)
[2019-01-26] MEDS: BENZTROPINE MESYLATE 1 MG TABLET PO SCH ×2 (08:45→16:28)
[2019-01-26] MEDS: OLANZapine 5 MG TABLET PO SCH ×2 (08:45→16:27)
[2019-01-26] MEDS: NICOTINE 21 MG/24 HOUR PATCH TD SCH (08:46)
[2019-01-26] MEDS: SUMAtriptan SUCCINATE 25 MG TABLET PO PRN ×3 (12:18→19:26)
[2019-01-26 16:19] VITALS: BP 154/77
[2019-01-26 17:19] VITALS: BP 118/88
[2019-01-26] MEDS: ZOLPIDEM TARTRATE 10 MG TABLET PO PRN (21:05)
[2019-01-27 04:39] VITALS: BP 126/85
[2019-01-27 08:12] VITALS: BP 122/82
[2019-01-27] MEDS: LamoTRIgine 25 MG TABLET PO SCH ×2 (08:31→16:02)
[2019-01-27] MEDS: NICOTINE 21 MG/24 HOUR PATCH TD SCH (08:31)
[2019-01-27] MEDS: DIAZEPAM 5 MG TABLET PO SCH ×2 (08:31→16:02)
[2019-01-27] MEDS: BENZTROPINE MESYLATE 1 MG TABLET PO SCH ×2 (08:32→16:02)
[2019-01-27] MEDS: SUMAtriptan SUCCINATE 25 MG TABLET PO PRN ×2 (08:34→11:05)
[2019-01-27] MEDS: OLANZapine 5 MG TABLET PO SCH ×2 (09:36→17:00)
[2019-01-27 10:58] VITALS: BP 120/87
[2019-01-27] MEDS: TiZANidine HCL 4 MG TABLET PO PRN (11:01)
[2019-01-27 16:00] VITALS: BP 121/74
[2019-01-27] MEDS ORDERED: HALOPERIDOL LACTATE 5 MG/ML VIAL IM ONE (20:45)
[2019-01-27] MEDS ORDERED: LORazepam 2 MG/ML VIAL IM ONE (20:45)
[2019-01-27] MEDS ORDERED: DiphenhydrAMINE HCL 50 MG/ML VIAL IM ONE (20:45)
[2019-01-27] MEDS ORDERED: DiphenhydrAMINE HCL 50 MG/ML VIAL ONE (20:46)
[2019-01-27] MEDS ORDERED: HALOPERIDOL LACTATE 5 MG/ML VIAL ONE (20:46)
[2019-01-27] MEDS ORDERED: LORazepam 2 MG/ML VIAL ONE (20:46)
[2019-01-28 04:24] VITALS: BP 120/70
[2019-01-28 06:35] VITALS: BP 124/77
[2019-01-28] MEDS: ASPIRIN/ACETAMINOPHEN/CAFFEINE 250-250-65 MG TABLET PO PRN (06:35)
[2019-01-28] MEDS: NICOTINE 21 MG/24 HOUR PATCH TD SCH (08:01)
[2019-01-28] MEDS: DIAZEPAM 5 MG TABLET PO SCH ×2 (08:02→16:40)
[2019-01-28] MEDS: BENZTROPINE MESYLATE 1 MG TABLET PO SCH ×2 (08:02→16:40)
[2019-01-28] MEDS: LamoTRIgine 25 MG TABLET PO SCH ×2 (08:02→16:40)
[2019-01-28] MEDS: OLANZapine 5 MG TABLET PO SCH ×2 (08:02→16:40)
[2019-01-28] MEDS: SUMAtriptan SUCCINATE 25 MG TABLET PO PRN ×3 (08:08→16:45)
[2019-01-28 08:09] VITALS: BP 126/86
[2019-01-28] MEDS: LIDOCAINE 5% TRANSDERMAL PATCH TD SCH ×2 (09:00→11:38)
[2019-01-28 09:10] VITALS: BP 127/97
[2019-01-28 13:56] VITALS: BP 122/83
[2019-01-28 16:08] VITALS: BP 119/88
[2019-01-28] MEDS: -LIDODERM PATCH NOTE- MISC SCH (21:26)
[2019-01-28] MEDS: ZOLPIDEM TARTRATE 10 MG TABLET PO PRN (22:50)
[2019-01-29] MEDS: ASPIRIN/ACETAMINOPHEN/CAFFEINE 250-250-65 MG TABLET PO PRN (05:10)
[2019-01-29 05:12] VITALS: BP 136/82
[2019-01-29 06:10] VITALS: BP 118/85
[2019-01-29] MEDS: LIDOCAINE 5% TRANSDERMAL PATCH TD SCH (08:04)
[2019-01-29 08:05] VITALS: BP 136/76
[2019-01-29] MEDS: SUMAtriptan SUCCINATE 25 MG TABLET PO PRN ×4 (08:05→21:26)
[2019-01-29] MEDS: DIAZEPAM 5 MG TABLET PO SCH ×2 (08:05→16:39)
[2019-01-29] MEDS: BENZTROPINE MESYLATE 1 MG TABLET PO SCH ×2 (08:05→16:38)
[2019-01-29] MEDS: OLANZapine 5 MG TABLET PO SCH ×2 (08:05→16:39)
[2019-01-29] MEDS: LamoTRIgine 25 MG TABLET PO SCH ×2 (08:05→16:39)
[2019-01-29] MEDS: NICOTINE 21 MG/24 HOUR PATCH TD SCH (08:05)
[2019-01-29 12:17] VITALS: BP 121/83
[2019-01-29] MEDS ORDERED: MAGNESIUM SULFATE 454 GM BOX TP PRN (14:00)
[2019-01-29 16:05] VITALS: BP 129/90
[2019-01-29] MEDS: -LIDODERM PATCH NOTE- MISC SCH (20:52)
[2019-01-29] MEDS: ZOLPIDEM TARTRATE 10 MG TABLET PO PRN (21:26)
[2019-01-30 04:18] VITALS: BP 125/86
[2019-01-30] MEDS: SUMAtriptan SUCCINATE 25 MG TABLET PO PRN ×2 (04:18→14:39)
[2019-01-30 04:22] VITALS: BP 131/83
[2019-01-30] MEDS: ASPIRIN/ACETAMINOPHEN/CAFFEINE 250-250-65 MG TABLET PO PRN (07:06)
[2019-01-30] MEDS: BENZTROPINE MESYLATE 1 MG TABLET PO SCH ×2 (08:06→16:09)
[2019-01-30] MEDS: DIAZEPAM 5 MG TABLET PO SCH ×2 (08:06→16:09)
[2019-01-30] MEDS: LamoTRIgine 25 MG TABLET PO SCH ×2 (08:06→16:09)
[2019-01-30] MEDS: OLANZapine 5 MG TABLET PO SCH ×2 (08:06→16:10)
[2019-01-30] MEDS: NICOTINE 21 MG/24 HOUR PATCH TD SCH (08:06)
[2019-01-30] MEDS: LIDOCAINE 5% TRANSDERMAL PATCH TD SCH (08:07)
[2019-01-30 08:12] VITALS: BP 110/66
[2019-01-30 14:39] VITALS: BP 114/68
[2019-01-30 16:01] VITALS: BP 122/84
[2019-01-30] MEDS: -LIDODERM PATCH NOTE- MISC SCH (20:58)
[2019-01-30] MEDS: ZOLPIDEM TARTRATE 10 MG TABLET PO PRN (21:00)
[2019-01-31 05:28] VITALS: BP 127/87
[2019-01-31] MEDS: SUMAtriptan SUCCINATE 25 MG TABLET PO PRN ×4 (05:31→21:01)
[2019-01-31] MEDS: ASPIRIN/ACETAMINOPHEN/CAFFEINE 250-250-65 MG TABLET PO PRN (06:25)
[2019-01-31] MEDS: BENZTROPINE MESYLATE 1 MG TABLET PO SCH ×2 (08:02→16:44)
[2019-01-31] MEDS: OLANZapine 5 MG TABLET PO SCH ×3 (08:02→16:44)
[2019-01-31] MEDS: DIAZEPAM 5 MG TABLET PO SCH ×2 (08:02→16:44)
[2019-01-31] MEDS: LamoTRIgine 25 MG TABLET PO SCH ×2 (08:02→16:44)
[2019-01-31] MEDS: NICOTINE 21 MG/24 HOUR PATCH TD SCH (08:03)
[2019-01-31] MEDS: LIDOCAINE 5% TRANSDERMAL PATCH TD SCH (08:03)
[2019-01-31 08:16] VITALS: BP 125/79
[2019-01-31 16:05] VITALS: BP 134/90
[2019-01-31] MEDS: -LIDODERM PATCH NOTE- MISC SCH (20:52)
[2019-01-31 20:58] VITALS: BP 136/80
[2019-01-31] MEDS: ZOLPIDEM TARTRATE 10 MG TABLET PO PRN (21:33)
[2019-02-01] VITALS (7 sets, daily range): BP systolic 116–138; BP diastolic 74–93
[2019-02-01] MEDS: SUMAtriptan SUCCINATE 25 MG TABLET PO PRN ×5 (03:13→18:52)
[2019-02-01] MEDS: ASPIRIN/ACETAMINOPHEN/CAFFEINE 250-250-65 MG TABLET PO PRN ×2 (04:20→08:09)
[2019-02-01] MEDS: DIAZEPAM 5 MG TABLET PO SCH ×2 (08:04→16:28)
[2019-02-01] MEDS: OLANZapine 5 MG TABLET PO SCH ×2 (08:04→16:28)
[2019-02-01] MEDS: LamoTRIgine 25 MG TABLET PO SCH ×2 (08:04→16:28)
[2019-02-01] MEDS: BENZTROPINE MESYLATE 1 MG TABLET PO SCH ×2 (08:04→16:28)
[2019-02-01] MEDS: NICOTINE 21 MG/24 HOUR PATCH TD SCH (08:05)
[2019-02-01] MEDS: LIDOCAINE 5% TRANSDERMAL PATCH TD SCH (08:06)
[2019-02-01] MEDS: -LIDODERM PATCH NOTE- MISC SCH (20:50)
[2019-02-01] MEDS: ZOLPIDEM TARTRATE 10 MG TABLET PO PRN (20:51)
[2019-02-02] MEDS: ASPIRIN/ACETAMINOPHEN/CAFFEINE 250-250-65 MG TABLET PO PRN (00:02)
[2019-02-02] MEDS: SUMAtriptan SUCCINATE 25 MG TABLET PO PRN ×4 (04:50→16:06)
[2019-02-02 05:14] VITALS: BP 110/86
[2019-02-02] MEDS: LamoTRIgine 25 MG TABLET PO SCH ×2 (08:00→16:04)
[2019-02-02] MEDS: DIAZEPAM 5 MG TABLET PO SCH ×2 (08:00→16:04)
[2019-02-02] MEDS: BENZTROPINE MESYLATE 1 MG TABLET PO SCH ×2 (08:01→16:04)
[2019-02-02] MEDS: NICOTINE 21 MG/24 HOUR PATCH TD SCH (08:01)
[2019-02-02] MEDS: OLANZapine 5 MG TABLET PO SCH ×2 (08:01→16:04)
[2019-02-02] MEDS: LIDOCAINE 5% TRANSDERMAL PATCH TD SCH ×3 (08:01→21:00)
[2019-02-02 08:06] VITALS: BP 142/82
[2019-02-02 11:45] VITALS: BP 134/78
[2019-02-02 16:06] VITALS: BP 115/82
[2019-02-02] MEDS: -LIDODERM PATCH NOTE- MISC SCH (20:43)
[2019-02-02] MEDS: ZOLPIDEM TARTRATE 10 MG TABLET PO PRN (20:47)
[2019-02-03 00:31] VITALS: BP 127/84
[2019-02-03] MEDS: ASPIRIN/ACETAMINOPHEN/CAFFEINE 250-250-65 MG TABLET PO PRN ×2 (00:33→14:01)
[2019-02-03] MEDS: SUMAtriptan SUCCINATE 25 MG TABLET PO PRN ×5 (05:00→20:34)
[2019-02-03] MEDS: -LIDODERM PATCH NOTE- MISC SCH (07:02)
[2019-02-03 08:09] VITALS: BP 112/85
[2019-02-03] MEDS: NICOTINE 21 MG/24 HOUR PATCH TD SCH (08:51)
[2019-02-03] MEDS: LamoTRIgine 25 MG TABLET PO SCH ×2 (08:51→16:41)
[2019-02-03] MEDS: BENZTROPINE MESYLATE 1 MG TABLET PO SCH ×2 (08:51→16:41)
[2019-02-03] MEDS: OLANZapine 5 MG TABLET PO SCH ×2 (08:51→16:41)
[2019-02-03] MEDS: DIAZEPAM 5 MG TABLET PO SCH ×2 (08:51→16:41)
[2019-02-03 11:31] VITALS: BP 138/87
[2019-02-03 14:06] VITALS: BP 128/88
[2019-02-03 16:30] VITALS: BP 127/80
[2019-02-03] MEDS: LIDOCAINE 5% TRANSDERMAL PATCH TD SCH (19:23)
[2019-02-03] MEDS: ZOLPIDEM TARTRATE 10 MG TABLET PO PRN (20:57)
[2019-02-04] MEDS: ASPIRIN/ACETAMINOPHEN/CAFFEINE 250-250-65 MG TABLET PO PRN ×2 (00:16→10:13)
[2019-02-04 00:21] VITALS: BP 116/76
[2019-02-04 04:05] VITALS: BP 118/78
[2019-02-04] MEDS: SUMAtriptan SUCCINATE 25 MG TABLET PO PRN ×5 (04:08→21:16)
[2019-02-04] MEDS: -LIDODERM PATCH NOTE- MISC SCH (07:00)
[2019-02-04] MEDS: OLANZapine 5 MG TABLET PO SCH ×2 (08:22→16:47)
[2019-02-04] MEDS: BENZTROPINE MESYLATE 1 MG TABLET PO SCH ×2 (08:22→16:47)
[2019-02-04] MEDS: DIAZEPAM 5 MG TABLET PO SCH ×2 (08:22→16:47)
[2019-02-04] MEDS: LamoTRIgine 25 MG TABLET PO SCH ×2 (08:22→16:46)
[2019-02-04] MEDS: NICOTINE 21 MG/24 HOUR PATCH TD SCH (08:23)
[2019-02-04 08:46] VITALS: BP 126/89
[2019-02-04 16:23] VITALS: BP 133/86
[2019-02-04] MEDS: LIDOCAINE 5% TRANSDERMAL PATCH TD SCH (19:28)
[2019-02-04] MEDS: ZOLPIDEM TARTRATE 10 MG TABLET PO PRN (21:15)
[2019-02-05] VITALS (7 sets, daily range): BP systolic 115–136; BP diastolic 70–90
[2019-02-05] MEDS: SUMAtriptan SUCCINATE 25 MG TABLET PO PRN ×7 (00:01→19:44)
[2019-02-05] MEDS: ASPIRIN/ACETAMINOPHEN/CAFFEINE 250-250-65 MG TABLET PO PRN ×2 (01:52→13:46)
[2019-02-05] MEDS: -LIDODERM PATCH NOTE- MISC SCH (07:06)
[2019-02-05] MEDS: OLANZapine 5 MG TABLET PO SCH ×2 (08:09→16:01)
[2019-02-05] MEDS: NICOTINE 21 MG/24 HOUR PATCH TD SCH (08:09)
[2019-02-05] MEDS: DIAZEPAM 5 MG TABLET PO SCH ×2 (08:09→16:01)
[2019-02-05] MEDS: BENZTROPINE MESYLATE 1 MG TABLET PO SCH ×2 (08:09→16:01)
[2019-02-05] MEDS: LamoTRIgine 25 MG TABLET PO SCH ×2 (08:09→16:01)
[2019-02-05] MEDS: HALOPERIDOL 5 MG TABLET PO PRN (09:56)
[2019-02-05] MEDS: LIDOCAINE 5% TRANSDERMAL PATCH TD SCH (19:40)
[2019-02-06] VITALS (7 sets, daily range): BP systolic 122–134; BP diastolic 69–88
[2019-02-06] MEDS: ZOLPIDEM TARTRATE 10 MG TABLET PO PRN ×2 (00:37→21:24)
[2019-02-06] MEDS: SUMAtriptan SUCCINATE 25 MG TABLET PO PRN ×7 (00:37→21:54)
[2019-02-06] MEDS: -LIDODERM PATCH NOTE- MISC SCH (07:10)
[2019-02-06] MEDS: BENZTROPINE MESYLATE 1 MG TABLET PO SCH ×2 (08:15→16:04)
[2019-02-06] MEDS: OLANZapine 5 MG TABLET PO SCH ×2 (08:15→16:05)
[2019-02-06] MEDS: LamoTRIgine 25 MG TABLET PO SCH ×2 (08:15→16:05)
[2019-02-06] MEDS: DIAZEPAM 5 MG TABLET PO SCH ×2 (08:15→16:05)
[2019-02-06] MEDS: NICOTINE 21 MG/24 HOUR PATCH TD SCH (08:17)
[2019-02-06] MEDS: ASPIRIN/ACETAMINOPHEN/CAFFEINE 250-250-65 MG TABLET PO PRN (10:31)
[2019-02-06] MEDS: LIDOCAINE 5% TRANSDERMAL PATCH TD SCH (19:30)
[2019-02-07] MEDS: SUMAtriptan SUCCINATE 25 MG TABLET PO PRN ×6 (01:39→22:18)
[2019-02-07 01:48] VITALS: BP 121/84
[2019-02-07] MEDS: ASPIRIN/ACETAMINOPHEN/CAFFEINE 250-250-65 MG TABLET PO PRN (06:04)
[2019-02-07] MEDS: -LIDODERM PATCH NOTE- MISC SCH (06:05)
[2019-02-07 08:56] VITALS: BP 147/87
[2019-02-07] MEDS: BENZTROPINE MESYLATE 1 MG TABLET PO SCH ×2 (09:13→16:23)
[2019-02-07] MEDS: OLANZapine 5 MG TABLET PO SCH ×2 (09:13→16:23)
[2019-02-07] MEDS: DIAZEPAM 5 MG TABLET PO SCH ×2 (09:13→16:23)
[2019-02-07] MEDS: NICOTINE 21 MG/24 HOUR PATCH TD SCH (09:14)
[2019-02-07] MEDS: LamoTRIgine 25 MG TABLET PO SCH ×2 (09:48→16:23)
[2019-02-07 16:08] VITALS: BP 126/85
[2019-02-07] MEDS: LIDOCAINE 5% TRANSDERMAL PATCH TD SCH (19:08)
[2019-02-08] VITALS (7 sets, daily range): BP systolic 104–142; BP diastolic 70–96
[2019-02-08] MEDS: ASPIRIN/ACETAMINOPHEN/CAFFEINE 250-250-65 MG TABLET PO PRN (02:59)
[2019-02-08] MEDS: SUMAtriptan SUCCINATE 25 MG TABLET PO PRN ×6 (05:00→19:37)
[2019-02-08] MEDS: -LIDODERM PATCH NOTE- MISC SCH (07:03)
[2019-02-08] MEDS: OLANZapine 5 MG TABLET PO SCH ×2 (08:01→16:26)
[2019-02-08] MEDS: DIAZEPAM 5 MG TABLET PO SCH ×2 (08:01→16:26)
[2019-02-08] MEDS: NICOTINE 21 MG/24 HOUR PATCH TD SCH (08:01)
[2019-02-08] MEDS: BENZTROPINE MESYLATE 1 MG TABLET PO SCH ×2 (08:01→16:25)
[2019-02-08] MEDS: LamoTRIgine 25 MG TABLET PO SCH ×2 (08:01→16:25)
[2019-02-08] MEDS: LIDOCAINE 5% TRANSDERMAL PATCH TD SCH (19:36)
[2019-02-09 06:36] VITALS: BP 138/82
[2019-02-09] MEDS: SUMAtriptan SUCCINATE 25 MG TABLET PO PRN ×3 (06:47→12:27)
[2019-02-09] MEDS: -LIDODERM PATCH NOTE- MISC SCH (07:07)
[2019-02-09 08:22] VITALS: BP 131/89
[2019-02-09] MEDS: DIAZEPAM 5 MG TABLET PO SCH ×2 (08:24→16:56)
[2019-02-09] MEDS: LamoTRIgine 25 MG TABLET PO SCH ×2 (08:24→16:56)
[2019-02-09] MEDS: NICOTINE 21 MG/24 HOUR PATCH TD SCH (08:24)
[2019-02-09] MEDS: OLANZapine 5 MG TABLET PO SCH ×2 (08:24→16:56)
[2019-02-09] MEDS: BENZTROPINE MESYLATE 1 MG TABLET PO SCH ×2 (08:24→16:55)
[2019-02-09 12:30] VITALS: BP 117/75
[2019-02-09 16:10] VITALS: BP 136/90
[2019-02-09] MEDS: ASPIRIN/ACETAMINOPHEN/CAFFEINE 250-250-65 MG TABLET PO PRN (18:30)
[2019-02-09] MEDS: LIDOCAINE 5% TRANSDERMAL PATCH TD SCH (20:05)
[2019-02-09] MEDS: ZOLPIDEM TARTRATE 10 MG TABLET PO PRN (21:54)
[2019-02-10] MEDS: ASPIRIN/ACETAMINOPHEN/CAFFEINE 250-250-65 MG TABLET PO PRN (05:14)
[2019-02-10 05:17] VITALS: BP 112/79
[2019-02-10] MEDS: -LIDODERM PATCH NOTE- MISC SCH (06:51)
[2019-02-10 08:12] VITALS: BP 111/69
[2019-02-10 08:14] LABS: HEMATOCRIT 44.9 % (41-53); HEMOGLOBIN 15.7 g/dL (13.5-17.5); MEAN CORPUSCULAR HEMOGLOBIN 31.9 pg (26.0-34.0); MEAN CORPUSCULAR VOLUME 91 fL (80-100); PLATELET COUNT (AUTO) 272 K/uL (150-450); RED BLOOD CELL COUNT(AUTO) 4.93 MIL/uL (4.50-5.90); RED CELL DISTRIBUTION WIDTH 12.3 % (11.5-14.5)
[2019-02-10] MEDS: DIAZEPAM 5 MG TABLET PO SCH ×2 (08:14→16:39)
[2019-02-10] MEDS: OLANZapine 5 MG TABLET PO SCH ×2 (08:14→16:39)
[2019-02-10] MEDS: LamoTRIgine 25 MG TABLET PO SCH ×2 (08:14→16:39)
[2019-02-10] MEDS: BENZTROPINE MESYLATE 1 MG TABLET PO SCH ×2 (08:14→16:39)
[2019-02-10] MEDS: NICOTINE 21 MG/24 HOUR PATCH TD SCH (08:15)
[2019-02-10 08:33] LABS: HEMOGLOBIN A1C 5.4 % (4.5-6.2)
[2019-02-10 08:43] LABS: ANION GAP 12 mmol/L (8-16); CALCIUM, TOTAL 8.6 mg/dL (8.8-10.5); CARBON DIOXIDE 25 mmol/L (22-29); CHLORIDE 101 mmol/L (98-107); CHOL/HDL RATIO 5.9 (4.2-7.3); CHOLESTEROL 217 mg/dL (131-200); CREATININE 1.11 mg/dL (0.60-1.30); GLOMERULAR FILTR. RATE CALC > 60 mL/min (>60); GLUCOSE,RANDOM 146 mg/dL (70-110); HDL CHOLESTEROL 37 mg/dL (40-60); LDL CHOL (CALC.) 130 mg/dL (0-130); PHOSPHORUS 3.9 mg/dL (2.5-4.9); POTASSIUM 3.8 mmol/L (3.5-5.1); SODIUM SERUM 138 mmol/L (136-145); THYROID STIMULATING HORMONE 1.55 uIU/mL (0.36-3.74); TRIGLYCERIDES 251 mg/dL (15-150); UREA NITROGEN, BLOOD 14 mg/dL (7-18)
[2019-02-10 10:28] LABS: BAND NEUTROPHILS % (MANUAL) 2 % (0-5); EOSINOPHILS % (MANUAL) 1 % (1-6); LYMPHOCYTES % (MANUAL) 42 % (22-44); MONOCYTES % (MANUAL) 5 % (2-9); SEGMENTED NEUTROPHILS % 50 % (40-70)
[2019-02-10 14:50] VITALS: BP 114/76
[2019-02-10] MEDS: SUMAtriptan SUCCINATE 25 MG TABLET PO PRN ×3 (14:50→21:37)
[2019-02-10] MEDS: PALIPERIDONE PALMITATE 234 MG/1.5 ML SYRINGE IM SCH (14:56)
[2019-02-10 16:15] VITALS: BP 137/67
[2019-02-10 17:33] VITALS: BP 129/81
[2019-02-10] MEDS: LIDOCAINE 5% TRANSDERMAL PATCH TD SCH (19:00)
[2019-02-10 21:37] VITALS: BP 122/98
[2019-02-10] MEDS: ZOLPIDEM TARTRATE 10 MG TABLET PO PRN (21:47)
[2019-02-11 01:30] VITALS: BP 128/86
[2019-02-11] MEDS: ASPIRIN/ACETAMINOPHEN/CAFFEINE 250-250-65 MG TABLET PO PRN ×2 (01:42→12:42)
[2019-02-11] MEDS: SUMAtriptan SUCCINATE 25 MG TABLET PO PRN ×5 (06:11→16:43)
[2019-02-11] MEDS: -LIDODERM PATCH NOTE- MISC SCH (06:38)
[2019-02-11 08:04] VITALS: BP 115/66
[2019-02-11] MEDS: BENZTROPINE MESYLATE 1 MG TABLET PO SCH ×2 (08:11→16:45)
[2019-02-11] MEDS: OLANZapine 5 MG TABLET PO SCH ×2 (08:11→16:45)
[2019-02-11] MEDS: DIAZEPAM 5 MG TABLET PO SCH ×2 (08:11→16:44)
[2019-02-11] MEDS: LamoTRIgine 25 MG TABLET PO SCH ×2 (08:11→16:45)
[2019-02-11] MEDS: NICOTINE 21 MG/24 HOUR PATCH TD SCH (08:12)
[2019-02-11 17:00] VITALS: BP 116/92
[2019-02-11] MEDS: LIDOCAINE 5% TRANSDERMAL PATCH TD SCH (19:16)
[2019-02-11] MEDS: ZOLPIDEM TARTRATE 10 MG TABLET PO PRN (20:44)
[2019-02-11] MEDS: BENZOCAINE 10% 7 GM GEL TP SCH (21:04)
[2019-02-12 05:10] VITALS: BP 126/83
[2019-02-12] MEDS: ASPIRIN/ACETAMINOPHEN/CAFFEINE 250-250-65 MG TABLET PO PRN (05:17)
[2019-02-12 05:27] VITALS: BP 126/83
[2019-02-12] MEDS: -LIDODERM PATCH NOTE- MISC SCH (07:16)
[2019-02-12] MEDS: COLLOIDAL OATMEAL/DIMETH 227 GM LOTION TP SCH ×2 (08:14→16:36)
[2019-02-12] MEDS: LamoTRIgine 25 MG TABLET PO SCH ×2 (08:14→16:36)
[2019-02-12] MEDS: DIAZEPAM 5 MG TABLET PO SCH ×2 (08:14→16:36)
[2019-02-12] MEDS: OLANZapine 5 MG TABLET PO SCH ×2 (08:14→16:36)
[2019-02-12] MEDS: BENZTROPINE MESYLATE 1 MG TABLET PO SCH ×2 (08:14→16:35)
[2019-02-12] MEDS: MAGNESIUM SULFATE 454 GM BOX TP SCH (08:15)
[2019-02-12] MEDS: BENZOCAINE 10% 7 GM GEL TP SCH ×3 (08:15→16:38)
[2019-02-12] MEDS: NICOTINE 21 MG/24 HOUR PATCH TD SCH (08:16)
[2019-02-12] MEDS: SUMAtriptan SUCCINATE 25 MG TABLET PO PRN ×4 (08:16→20:34)
[2019-02-12 08:31] VITALS: BP 134/99
[2019-02-12 16:08] VITALS: BP 128/83
[2019-02-12] MEDS: LIDOCAINE 5% TRANSDERMAL PATCH TD SCH (19:33)
[2019-02-12 20:35] VITALS: BP 132/84
[2019-02-12] MEDS: ZOLPIDEM TARTRATE 10 MG TABLET PO PRN (21:03)
[2019-02-13] VITALS (7 sets, daily range): BP systolic 114–144; BP diastolic 70–96
[2019-02-13] MEDS: SUMAtriptan SUCCINATE 25 MG TABLET PO PRN ×6 (04:56→20:55)
[2019-02-13] MEDS: -LIDODERM PATCH NOTE- MISC SCH (06:57)
[2019-02-13] MEDS: OLANZapine 5 MG TABLET PO SCH ×2 (08:56→16:31)
[2019-02-13] MEDS: DIAZEPAM 5 MG TABLET PO SCH ×2 (08:56→16:30)
[2019-02-13] MEDS: LamoTRIgine 25 MG TABLET PO SCH ×2 (08:56→16:30)
[2019-02-13] MEDS: BENZTROPINE MESYLATE 1 MG TABLET PO SCH ×2 (08:56→16:30)
[2019-02-13] MEDS: NICOTINE 21 MG/24 HOUR PATCH TD SCH (08:57)
[2019-02-13] MEDS: MAGNESIUM SULFATE 454 GM BOX TP SCH (08:57)
[2019-02-13] MEDS: COLLOIDAL OATMEAL/DIMETH 227 GM LOTION TP SCH ×2 (08:57→16:31)
[2019-02-13] MEDS: BENZOCAINE 10% 7 GM GEL TP SCH ×3 (08:58→16:33)
[2019-02-13] MEDS: LIDOCAINE 5% TRANSDERMAL PATCH TD SCH (18:43)
[2019-02-13] MEDS: ZOLPIDEM TARTRATE 10 MG TABLET PO PRN (20:55)
[2019-02-14 03:50] VITALS: BP 115/76
[2019-02-14] MEDS: SUMAtriptan SUCCINATE 25 MG TABLET PO PRN ×3 (03:54→22:06)
[2019-02-14] MEDS: ASPIRIN/ACETAMINOPHEN/CAFFEINE 250-250-65 MG TABLET PO PRN (05:46)
[2019-02-14] MEDS: -LIDODERM PATCH NOTE- MISC SCH (06:40)
[2019-02-14 07:10] VITALS: BP 131/88
[2019-02-14 08:21] VITALS: BP 133/79
[2019-02-14] MEDS: LamoTRIgine 25 MG TABLET PO SCH ×2 (08:31→16:38)
[2019-02-14] MEDS: OLANZapine 5 MG TABLET PO SCH ×2 (08:31→16:37)
[2019-02-14] MEDS: DIAZEPAM 5 MG TABLET PO SCH ×2 (08:31→16:37)
[2019-02-14] MEDS: NICOTINE 21 MG/24 HOUR PATCH TD SCH (08:31)
[2019-02-14] MEDS: BENZTROPINE MESYLATE 1 MG TABLET PO SCH ×2 (08:31→16:37)
[2019-02-14] MEDS: COLLOIDAL OATMEAL/DIMETH 227 GM LOTION TP SCH ×2 (09:10→16:38)
[2019-02-14] MEDS: BENZOCAINE 10% 7 GM GEL TP SCH ×3 (09:18→16:38)
[2019-02-14] MEDS: MAGNESIUM SULFATE 454 GM BOX TP SCH (09:18)
[2019-02-14 16:14] VITALS: BP 121/89
[2019-02-14] MEDS: LIDOCAINE 5% TRANSDERMAL PATCH TD SCH (18:59)
[2019-02-14] MEDS: ZOLPIDEM TARTRATE 10 MG TABLET PO PRN (22:06)
[2019-02-14 22:07] VITALS: BP 135/78
[2019-02-15 04:35] VITALS: BP 128/81
[2019-02-15] MEDS: SUMAtriptan SUCCINATE 25 MG TABLET PO PRN ×5 (04:38→18:34)
[2019-02-15] MEDS: ASPIRIN/ACETAMINOPHEN/CAFFEINE 250-250-65 MG TABLET PO PRN (05:55)
[2019-02-15] MEDS: -LIDODERM PATCH NOTE- MISC SCH (07:09)
[2019-02-15] MEDS: BENZTROPINE MESYLATE 1 MG TABLET PO SCH ×2 (08:20→16:31)
[2019-02-15] MEDS: DIAZEPAM 5 MG TABLET PO SCH ×2 (08:20→16:31)
[2019-02-15] MEDS: LamoTRIgine 25 MG TABLET PO SCH ×2 (08:20→16:31)
[2019-02-15] MEDS: OLANZapine 5 MG TABLET PO SCH ×2 (08:20→16:31)
[2019-02-15] MEDS: NICOTINE 21 MG/24 HOUR PATCH TD SCH (08:20)
[2019-02-15] MEDS: COLLOIDAL OATMEAL/DIMETH 227 GM LOTION TP SCH ×2 (08:25→16:31)
[2019-02-15 08:26] VITALS: BP 116/77
[2019-02-15] MEDS: MAGNESIUM SULFATE 454 GM BOX TP SCH (08:26)
[2019-02-15] MEDS: BENZOCAINE 10% 7 GM GEL TP SCH ×3 (08:26→16:32)
[2019-02-15 11:13] VITALS: BP 114/78
[2019-02-15 14:41] VITALS: BP 134/85
[2019-02-15 16:12] VITALS: BP 115/68
[2019-02-15 18:35] VITALS: BP 119/76
[2019-02-15] MEDS: LIDOCAINE 5% TRANSDERMAL PATCH TD SCH (20:17)
[2019-02-15] MEDS: ZOLPIDEM TARTRATE 10 MG TABLET PO PRN (20:45)
[2019-02-16 02:55] VITALS: BP 104/74
[2019-02-16] MEDS: ASPIRIN/ACETAMINOPHEN/CAFFEINE 250-250-65 MG TABLET PO PRN (03:00)
[2019-02-16 05:35] VITALS: BP 106/78
[2019-02-16] MEDS: SUMAtriptan SUCCINATE 25 MG TABLET PO PRN ×5 (05:40→22:27)
[2019-02-16] MEDS: -LIDODERM PATCH NOTE- MISC SCH (07:00)
[2019-02-16 08:12] VITALS: BP 118/70
[2019-02-16] MEDS: LamoTRIgine 25 MG TABLET PO SCH ×2 (08:28→16:54)
[2019-02-16] MEDS: BENZTROPINE MESYLATE 1 MG TABLET PO SCH ×2 (08:28→16:55)
[2019-02-16] MEDS: NICOTINE 21 MG/24 HOUR PATCH TD SCH (08:28)
[2019-02-16] MEDS: OLANZapine 5 MG TABLET PO SCH ×2 (08:28→16:54)
[2019-02-16] MEDS: DIAZEPAM 5 MG TABLET PO SCH ×2 (08:28→16:54)
[2019-02-16] MEDS: COLLOIDAL OATMEAL/DIMETH 227 GM LOTION TP SCH ×2 (08:29→17:31)
[2019-02-16] MEDS: MAGNESIUM SULFATE 454 GM BOX TP SCH (08:29)
[2019-02-16] MEDS: BENZOCAINE 10% 7 GM GEL TP SCH ×3 (08:35→17:32)
[2019-02-16 13:05] VITALS: BP 122/83
[2019-02-16 19:14] VITALS: BP 130/76
[2019-02-16] MEDS: LIDOCAINE 5% TRANSDERMAL PATCH TD SCH (19:22)
[2019-02-16] MEDS: ZOLPIDEM TARTRATE 10 MG TABLET PO PRN (21:14)
[2019-02-16 22:27] VITALS: BP 129/84
[2019-02-17] MEDS: SUMAtriptan SUCCINATE 25 MG TABLET PO PRN ×4 (03:58→16:18)
[2019-02-17 03:59] VITALS: BP 101/74
[2019-02-17 07:00] VITALS: BP 132/78
[2019-02-17] MEDS: ASPIRIN/ACETAMINOPHEN/CAFFEINE 250-250-65 MG TABLET PO PRN (07:03)
[2019-02-17] MEDS: -LIDODERM PATCH NOTE- MISC SCH (07:03)
[2019-02-17 08:20] VITALS: BP 119/79
[2019-02-17] MEDS: DIAZEPAM 5 MG TABLET PO SCH ×2 (08:21→16:16)
[2019-02-17] MEDS: COLLOIDAL OATMEAL/DIMETH 227 GM LOTION TP SCH ×2 (08:21→16:16)
[2019-02-17] MEDS: LamoTRIgine 25 MG TABLET PO SCH ×2 (08:21→16:15)
[2019-02-17] MEDS: OLANZapine 5 MG TABLET PO SCH ×2 (08:21→16:15)
[2019-02-17] MEDS: NICOTINE 21 MG/24 HOUR PATCH TD SCH (08:21)
[2019-02-17] MEDS: BENZTROPINE MESYLATE 1 MG TABLET PO SCH ×2 (08:21→16:16)
[2019-02-17 12:56] VITALS: BP 124/86
[2019-02-17 16:07] VITALS: BP 133/77
[2019-02-17] MEDS: LIDOCAINE 5% TRANSDERMAL PATCH TD SCH (20:29)
[2019-02-17] MEDS: ZOLPIDEM TARTRATE 10 MG TABLET PO PRN (20:50)
[2019-02-18 05:25] VITALS: BP 138/86
[2019-02-18] MEDS: ASPIRIN/ACETAMINOPHEN/CAFFEINE 250-250-65 MG TABLET PO PRN ×2 (05:29→14:28)
[2019-02-18] MEDS: -LIDODERM PATCH NOTE- MISC SCH (07:02)
[2019-02-18 08:18] VITALS: BP 130/79
[2019-02-18] MEDS: LamoTRIgine 25 MG TABLET PO SCH ×2 (08:36→16:34)
[2019-02-18] MEDS: OLANZapine 5 MG TABLET PO SCH ×2 (08:36→16:34)
[2019-02-18] MEDS: BENZTROPINE MESYLATE 1 MG TABLET PO SCH ×2 (08:37→16:34)
[2019-02-18] MEDS: DIAZEPAM 5 MG TABLET PO SCH ×2 (08:37→16:34)
[2019-02-18] MEDS: NICOTINE 21 MG/24 HOUR PATCH TD SCH (08:38)
[2019-02-18] MEDS: COLLOIDAL OATMEAL/DIMETH 227 GM LOTION TP SCH ×2 (08:38→16:34)
[2019-02-18] MEDS: SUMAtriptan SUCCINATE 25 MG TABLET PO PRN ×4 (08:41→20:51)
[2019-02-18] MEDS ORDERED: TUBERCULIN, PURIFIED PROTEIN DERIVATIVE 5 TU/0.1 ML SYRINGE ID ONE (10:45)
[2019-02-18] MEDS ORDERED: INFLUENZA VIRUS VACCINE QVS 2019-20 (3YR+)/PF 60 MCG/0.5 ML SYRINGE IM ONE (10:45)
[2019-02-18] MEDS ORDERED: PNEUMOCOCCAL VACCINE POLYVALENT 0.5 ML VIAL [PPSV23] IM ONE (10:45)
[2019-02-18 14:28] VITALS: BP 125/81
[2019-02-18 16:08] VITALS: BP 111/77
[2019-02-18 17:32] VITALS: BP 125/86
[2019-02-18] MEDS: LIDOCAINE 5% TRANSDERMAL PATCH TD SCH (19:02)
[2019-02-18 20:51] VITALS: BP 120/78
[2019-02-18] MEDS: ZOLPIDEM TARTRATE 10 MG TABLET PO PRN (20:51)
[2019-02-19 01:06] VITALS: BP 105/75
[2019-02-19] MEDS: ASPIRIN/ACETAMINOPHEN/CAFFEINE 250-250-65 MG TABLET PO PRN (01:07)
[2019-02-19 04:25] VITALS: BP 106/72
[2019-02-19] MEDS: SUMAtriptan SUCCINATE 25 MG TABLET PO PRN ×5 (04:28→16:10)
[2019-02-19 06:52] VITALS: BP 108/78
[2019-02-19] MEDS: -LIDODERM PATCH NOTE- MISC SCH (06:59)
[2019-02-19] MEDS: BENZTROPINE MESYLATE 1 MG TABLET PO SCH ×2 (08:19→16:06)
[2019-02-19] MEDS: LamoTRIgine 25 MG TABLET PO SCH ×2 (08:19→16:07)
[2019-02-19] MEDS: OLANZapine 5 MG TABLET PO SCH ×2 (08:20→16:07)
[2019-02-19] MEDS: DIAZEPAM 5 MG TABLET PO SCH ×2 (08:20→16:06)
[2019-02-19 08:22] VITALS: BP 132/93
[2019-02-19] MEDS: NICOTINE 21 MG/24 HOUR PATCH TD SCH ×2 (09:00→10:14)
[2019-02-19] MEDS: COLLOIDAL OATMEAL/DIMETH 227 GM LOTION TP SCH ×2 (09:03→16:21)
[2019-02-19 16:06] VITALS: BP 126/80
[2019-02-19] MEDS: LIDOCAINE 5% TRANSDERMAL PATCH TD SCH (19:13)
[2019-02-19] MEDS: ZOLPIDEM TARTRATE 10 MG TABLET PO PRN (22:58)
[2019-02-20] MEDS: SUMAtriptan SUCCINATE 25 MG TABLET PO PRN ×4 (00:02→21:13)
[2019-02-20] MEDS: -LIDODERM PATCH NOTE- MISC SCH (06:52)
[2019-02-20 08:09] VITALS: BP 122/86
[2019-02-20] MEDS: LamoTRIgine 25 MG TABLET PO SCH ×2 (09:25→16:05)
[2019-02-20] MEDS: BENZTROPINE MESYLATE 1 MG TABLET PO SCH ×2 (09:25→16:05)
[2019-02-20] MEDS: DIAZEPAM 5 MG TABLET PO SCH ×2 (09:26→16:04)
[2019-02-20] MEDS: OLANZapine 5 MG TABLET PO SCH ×2 (09:26→16:05)
[2019-02-20] MEDS: COLLOIDAL OATMEAL/DIMETH 227 GM LOTION TP SCH ×2 (09:27→16:09)
[2019-02-20] MEDS: NICOTINE 21 MG/24 HOUR PATCH TD SCH (09:28)
[2019-02-20 09:47] VITALS: BP 123/86
[2019-02-20 16:06] VITALS: BP 126/86
[2019-02-20] MEDS: LIDOCAINE 5% TRANSDERMAL PATCH TD SCH (19:10)
[2019-02-21] MEDS: ZOLPIDEM TARTRATE 10 MG TABLET PO PRN (00:41)
[2019-02-21] MEDS: ASPIRIN/ACETAMINOPHEN/CAFFEINE 250-250-65 MG TABLET PO PRN ×2 (00:41→11:44)
[2019-02-21 00:56] VITALS: BP 100/60
[2019-02-21] MEDS: -LIDODERM PATCH NOTE- MISC SCH (07:03)
[2019-02-21 08:22] VITALS: BP 112/71
[2019-02-21] MEDS: OLANZapine 5 MG TABLET PO SCH ×2 (08:41→16:37)
[2019-02-21] MEDS: DIAZEPAM 5 MG TABLET PO SCH ×2 (08:41→16:37)
[2019-02-21] MEDS: BENZTROPINE MESYLATE 1 MG TABLET PO SCH ×2 (08:41→16:37)
[2019-02-21] MEDS: LamoTRIgine 25 MG TABLET PO SCH ×2 (08:41→16:37)
[2019-02-21] MEDS: NICOTINE 21 MG/24 HOUR PATCH TD SCH (08:42)
[2019-02-21] MEDS: COLLOIDAL OATMEAL/DIMETH 227 GM LOTION TP SCH ×2 (08:43→16:37)
[2019-02-21] MEDS: SUMAtriptan SUCCINATE 25 MG TABLET PO PRN ×4 (08:50→17:19)
[2019-02-21 10:00] VITALS: BP 112/71
[2019-02-21 17:20] VITALS: BP 120/71
[2019-02-21] MEDS: LIDOCAINE 5% TRANSDERMAL PATCH TD SCH (18:50)
[2019-02-22 06:57] VITALS: BP 118/72
[2019-02-22] MEDS: -LIDODERM PATCH NOTE- MISC SCH (07:10)
[2019-02-22] MEDS: BENZTROPINE MESYLATE 1 MG TABLET PO SCH ×2 (09:16→16:15)
[2019-02-22] MEDS: COLLOIDAL OATMEAL/DIMETH 227 GM LOTION TP SCH ×2 (09:17→16:18)
[2019-02-22] MEDS: LamoTRIgine 25 MG TABLET PO SCH ×2 (09:17→16:16)
[2019-02-22] MEDS: NICOTINE 21 MG/24 HOUR PATCH TD SCH (09:17)
[2019-02-22] MEDS: OLANZapine 5 MG TABLET PO SCH ×2 (09:17→16:15)
[2019-02-22] MEDS: DIAZEPAM 5 MG TABLET PO SCH ×2 (09:17→16:15)
[2019-02-22] MEDS: SUMAtriptan SUCCINATE 25 MG TABLET PO PRN ×4 (10:21→21:39)
[2019-02-22] MEDS: ASPIRIN/ACETAMINOPHEN/CAFFEINE 250-250-65 MG TABLET PO PRN (13:54)
[2019-02-22] MEDS: LIDOCAINE 5% TRANSDERMAL PATCH TD SCH (19:41)
[2019-02-22] MEDS: ZOLPIDEM TARTRATE 10 MG TABLET PO PRN (21:39)
[2019-02-22] MEDS: BENZOCAINE 10% 7 GM GEL TP PRN (21:40)
[2019-02-23 00:36] VITALS: BP 102/73
[2019-02-23] MEDS: ASPIRIN/ACETAMINOPHEN/CAFFEINE 250-250-65 MG TABLET PO PRN ×3 (00:38→21:31)
[2019-02-23 05:24] VITALS: BP 119/75
[2019-02-23] MEDS: SUMAtriptan SUCCINATE 25 MG TABLET PO PRN ×5 (05:26→17:45)
[2019-02-23] MEDS: -LIDODERM PATCH NOTE- MISC SCH (07:05)
[2019-02-23] MEDS: LamoTRIgine 25 MG TABLET PO SCH ×2 (08:17→16:27)
[2019-02-23] MEDS: NICOTINE 21 MG/24 HOUR PATCH TD SCH (08:17)
[2019-02-23] MEDS: DIAZEPAM 5 MG TABLET PO SCH ×2 (08:17→16:27)
[2019-02-23] MEDS: BENZTROPINE MESYLATE 1 MG TABLET PO SCH ×2 (08:17→16:27)
[2019-02-23] MEDS: OLANZapine 5 MG TABLET PO SCH ×2 (08:17→16:27)
[2019-02-23] MEDS: COLLOIDAL OATMEAL/DIMETH 227 GM LOTION TP SCH ×2 (09:35→16:27)
[2019-02-23] MEDS: BENZOCAINE 10% 7 GM GEL TP PRN (12:16)
[2019-02-23 16:11] VITALS: BP 138/97
[2019-02-23 17:45] VITALS: BP 128/84
[2019-02-23] MEDS: LIDOCAINE 5% TRANSDERMAL PATCH TD SCH (19:22)
[2019-02-23] MEDS: ZOLPIDEM TARTRATE 10 MG TABLET PO PRN (21:29)
[2019-02-23 21:35] VITALS: BP 121/76
[2019-02-24] VITALS (8 sets, daily range): BP systolic 117–127; BP diastolic 62–89
[2019-02-24] MEDS: -LIDODERM PATCH NOTE- MISC SCH (06:52)
[2019-02-24] MEDS: LamoTRIgine 25 MG TABLET PO SCH (08:34)
[2019-02-24] MEDS: DIAZEPAM 5 MG TABLET PO SCH ×2 (08:34→16:32)
[2019-02-24] MEDS: BENZTROPINE MESYLATE 1 MG TABLET PO SCH ×2 (08:34→16:33)
[2019-02-24] MEDS: OLANZapine 5 MG TABLET PO SCH ×2 (08:34→16:32)
[2019-02-24] MEDS: COLLOIDAL OATMEAL/DIMETH 227 GM LOTION TP SCH ×2 (08:35→16:33)
[2019-02-24] MEDS: NICOTINE 21 MG/24 HOUR PATCH TD SCH (08:35)
[2019-02-24] MEDS: ASPIRIN/ACETAMINOPHEN/CAFFEINE 250-250-65 MG TABLET PO PRN ×2 (08:36→17:33)
[2019-02-24] MEDS: SUMAtriptan SUCCINATE 25 MG TABLET PO PRN ×4 (09:41→20:27)
[2019-02-24] MEDS: LIDOCAINE 5% TRANSDERMAL PATCH TD SCH (19:43)
[2019-02-24] MEDS: ZOLPIDEM TARTRATE 10 MG TABLET PO PRN (20:27)
[2019-02-25] MEDS: -LIDODERM PATCH NOTE- MISC SCH (07:01)
[2019-02-25 07:14] VITALS: BP 122/73
[2019-02-25] MEDS: LamoTRIgine 25 MG TABLET PO SCH (08:19)
[2019-02-25] MEDS: OLANZapine 5 MG TABLET PO SCH ×2 (08:19→17:10)
[2019-02-25] MEDS: NICOTINE 21 MG/24 HOUR PATCH TD SCH (08:19)
[2019-02-25] MEDS: BENZTROPINE MESYLATE 1 MG TABLET PO SCH ×2 (08:19→17:10)
[2019-02-25] MEDS: DIAZEPAM 5 MG TABLET PO SCH ×2 (08:19→17:10)
[2019-02-25] MEDS: SUMAtriptan SUCCINATE 25 MG TABLET PO PRN ×3 (08:21→14:59)
[2019-02-25] MEDS: COLLOIDAL OATMEAL/DIMETH 227 GM LOTION TP SCH ×2 (08:23→17:11)
[2019-02-25 08:43] VITALS: BP 117/82
[2019-02-25] MEDS: ASPIRIN/ACETAMINOPHEN/CAFFEINE 250-250-65 MG TABLET PO PRN (09:21)
[2019-02-25] MEDS: BENZOCAINE 10% 7 GM GEL TP PRN (11:55)
[2019-02-25 16:07] VITALS: BP 130/80
[2019-02-25] MEDS: LIDOCAINE 5% TRANSDERMAL PATCH TD SCH (20:13)
[2019-02-25] MEDS: ZOLPIDEM TARTRATE 10 MG TABLET PO PRN (22:12)
[2019-02-26 06:21] VITALS: BP 100/60
[2019-02-26] MEDS: -LIDODERM PATCH NOTE- MISC SCH (06:25)
[2019-02-26] MEDS: OLANZapine 5 MG TABLET PO SCH ×2 (09:57→16:32)
[2019-02-26] MEDS: BENZTROPINE MESYLATE 1 MG TABLET PO SCH ×2 (09:57→16:32)
[2019-02-26] MEDS: DIAZEPAM 5 MG TABLET PO SCH ×2 (09:57→16:32)
[2019-02-26] MEDS: LamoTRIgine 25 MG TABLET PO SCH (09:57)
[2019-02-26] MEDS: NICOTINE 21 MG/24 HOUR PATCH TD SCH (09:57)
[2019-02-26] MEDS: COLLOIDAL OATMEAL/DIMETH 227 GM LOTION TP SCH ×2 (09:58→16:32)
[2019-02-26 11:46] VITALS: BP 118/72
[2019-02-26] MEDS: ASPIRIN/ACETAMINOPHEN/CAFFEINE 250-250-65 MG TABLET PO PRN (11:46)
[2019-02-26] MEDS: SUMAtriptan SUCCINATE 25 MG TABLET PO PRN ×3 (13:24→19:35)
[2019-02-26 16:10] VITALS: BP 110/61
[2019-02-26] MEDS: LIDOCAINE 5% TRANSDERMAL PATCH TD SCH (19:03)
[2019-02-26] MEDS: ZOLPIDEM TARTRATE 10 MG TABLET PO PRN (21:10)
[2019-02-27 06:18] VITALS: BP 119/65
[2019-02-27] MEDS: -LIDODERM PATCH NOTE- MISC SCH (07:13)
[2019-02-27 08:11] VITALS: BP 124/79
[2019-02-27] MEDS: BENZTROPINE MESYLATE 1 MG TABLET PO SCH ×2 (10:00→16:57)
[2019-02-27] MEDS: OLANZapine 5 MG TABLET PO SCH ×2 (10:00→16:57)
[2019-02-27] MEDS: DIAZEPAM 5 MG TABLET PO SCH ×2 (10:00→16:57)
[2019-02-27] MEDS: LamoTRIgine 25 MG TABLET PO SCH (10:00)
[2019-02-27] MEDS: NICOTINE 21 MG/24 HOUR PATCH TD SCH (10:01)
[2019-02-27] MEDS: COLLOIDAL OATMEAL/DIMETH 227 GM LOTION TP SCH ×2 (10:01→17:40)
[2019-02-27 12:19] VITALS: BP 128/82
[2019-02-27] MEDS: ASPIRIN/ACETAMINOPHEN/CAFFEINE 250-250-65 MG TABLET PO PRN (12:19)
[2019-02-27] MEDS: SUMAtriptan SUCCINATE 25 MG TABLET PO PRN (14:43)
[2019-02-27 16:09] VITALS: BP 109/73
[2019-02-27] MEDS: LIDOCAINE 5% TRANSDERMAL PATCH TD SCH (19:30)
[2019-02-28 02:00] VITALS: BP 131/85
[2019-02-28] MEDS: ZOLPIDEM TARTRATE 10 MG TABLET PO PRN (02:04)
[2019-02-28] MEDS: ASPIRIN/ACETAMINOPHEN/CAFFEINE 250-250-65 MG TABLET PO PRN ×3 (02:08→18:00)
[2019-02-28] MEDS: -LIDODERM PATCH NOTE- MISC SCH (07:23)
[2019-02-28 08:23] VITALS: BP 132/82
[2019-02-28] MEDS: DIAZEPAM 5 MG TABLET PO SCH ×2 (09:15→16:21)
[2019-02-28] MEDS: NICOTINE 21 MG/24 HOUR PATCH TD SCH (09:15)
[2019-02-28] MEDS: BENZTROPINE MESYLATE 1 MG TABLET PO SCH ×2 (09:16→16:21)
[2019-02-28] MEDS: LamoTRIgine 25 MG TABLET PO SCH (09:16)
[2019-02-28] MEDS: OLANZapine 5 MG TABLET PO SCH ×2 (09:16→16:21)
[2019-02-28] MEDS: COLLOIDAL OATMEAL/DIMETH 227 GM LOTION TP SCH ×2 (09:18→16:28)
[2019-02-28 09:32] VITALS: BP 125/79
[2019-02-28] MEDS: SUMAtriptan SUCCINATE 25 MG TABLET PO PRN (14:17)
[2019-02-28 16:25] VITALS: BP 125/86
[2019-02-28 17:55] VITALS: BP 107/73
[2019-02-28] MEDS: LIDOCAINE 5% TRANSDERMAL PATCH TD SCH (18:00)
[2019-02-28 19:15] VITALS: BP 110/74
[2019-03-01] MEDS: -LIDODERM PATCH NOTE- MISC SCH (06:45)
[2019-03-01 09:39] VITALS: BP 123/98
[2019-03-01] MEDS ORDERED: INFLUENZA VIRUS VACCINE QVS 2019-20 (3YR+)/PF 60 MCG/0.5 ML SYRINGE IM ONE (10:00)
[2019-03-01] MEDS: DIAZEPAM 5 MG TABLET PO SCH ×2 (12:39→16:34)
[2019-03-01] MEDS: BENZTROPINE MESYLATE 1 MG TABLET PO SCH ×2 (12:39→16:34)
[2019-03-01] MEDS: NICOTINE 21 MG/24 HOUR PATCH TD SCH (12:40)
[2019-03-01] MEDS: COLLOIDAL OATMEAL/DIMETH 227 GM LOTION TP SCH ×2 (12:41→16:34)
[2019-03-01] MEDS: OLANZapine 5 MG TABLET PO SCH ×2 (12:41→16:34)
[2019-03-01] MEDS: GuaiFENesin/D-METHORPHAN/PHENYLEPH 5 ML LIQUID ORAL.SYG PO PRN ×2 (12:43→18:28)
[2019-03-01] MEDS: LamoTRIgine 25 MG TABLET PO SCH (12:44)
[2019-03-01] MEDS: SUMAtriptan SUCCINATE 25 MG TABLET PO PRN ×2 (15:04→21:56)
[2019-03-01 15:09] VITALS: BP 140/102
[2019-03-01 16:30] VITALS: BP 133/91
[2019-03-01] MEDS: ASPIRIN/ACETAMINOPHEN/CAFFEINE 250-250-65 MG TABLET PO PRN (16:34)
[2019-03-01] MEDS: LIDOCAINE 5% TRANSDERMAL PATCH TD SCH (19:46)
[2019-03-01 21:50] VITALS: BP 130/80
[2019-03-01] MEDS: ZOLPIDEM TARTRATE 10 MG TABLET PO PRN (23:52)
[2019-03-02 00:01] VITALS: BP 133/98
[2019-03-02] MEDS: SUMAtriptan SUCCINATE 25 MG TABLET PO PRN ×4 (00:10→15:53)
[2019-03-02] MEDS: GuaiFENesin/D-METHORPHAN/PHENYLEPH 5 ML LIQUID ORAL.SYG PO PRN ×2 (00:12→09:32)
[2019-03-02] MEDS: ASPIRIN/ACETAMINOPHEN/CAFFEINE 250-250-65 MG TABLET PO PRN ×3 (03:42→18:32)
[2019-03-02] MEDS: -LIDODERM PATCH NOTE- MISC SCH (07:09)
[2019-03-02] MEDS: BENZTROPINE MESYLATE 1 MG TABLET PO SCH ×2 (07:47→16:44)
[2019-03-02] MEDS: LamoTRIgine 25 MG TABLET PO SCH (07:47)
[2019-03-02] MEDS: DIAZEPAM 5 MG TABLET PO SCH ×2 (07:47→16:44)
[2019-03-02] MEDS: NICOTINE 21 MG/24 HOUR PATCH TD SCH (07:48)
[2019-03-02] MEDS: OLANZapine 5 MG TABLET PO SCH ×2 (07:48→16:44)
[2019-03-02] MEDS: COLLOIDAL OATMEAL/DIMETH 227 GM LOTION TP SCH ×2 (07:49→16:44)
[2019-03-02 07:51] VITALS: BP 116/84
[2019-03-02] MEDS: OSELTAMIVIR PHOSPHATE 75 MG CAPSULE PO SCH ×2 (09:16→16:44)
[2019-03-02 09:36] VITALS: BP 110/80
[2019-03-02 16:01] VITALS: BP 142/97
[2019-03-02 16:39] VITALS: BP 142/97
[2019-03-02] MEDS: LIDOCAINE 5% TRANSDERMAL PATCH TD SCH (19:18)
[2019-03-02] MEDS: ZOLPIDEM TARTRATE 10 MG TABLET PO PRN (20:43)
[2019-03-03 03:10] VITALS: BP 138/66
[2019-03-03] MEDS: -LIDODERM PATCH NOTE- MISC SCH (07:12)
[2019-03-03] MEDS: NICOTINE 21 MG/24 HOUR PATCH TD SCH (09:32)
[2019-03-03] MEDS: OSELTAMIVIR PHOSPHATE 75 MG CAPSULE PO SCH ×2 (09:32→16:49)
[2019-03-03] MEDS: OMEGA-3/DHA/EPA/FISH OIL 1,000 MG CAPSULE PO SCH (09:32)
[2019-03-03] MEDS: DIAZEPAM 5 MG TABLET PO SCH ×2 (09:32→17:00)
[2019-03-03] MEDS: BENZTROPINE MESYLATE 1 MG TABLET PO SCH ×2 (09:32→16:49)
[2019-03-03] MEDS: LamoTRIgine 25 MG TABLET PO SCH (09:34)
[2019-03-03] MEDS: OLANZapine 5 MG TABLET PO SCH ×2 (09:35→16:49)
[2019-03-03] MEDS: COLLOIDAL OATMEAL/DIMETH 227 GM LOTION TP SCH ×2 (09:37→17:00)
[2019-03-03] MEDS: ASPIRIN/ACETAMINOPHEN/CAFFEINE 250-250-65 MG TABLET PO PRN ×2 (09:44→19:34)
[2019-03-03 10:57] VITALS: BP 99/75
[2019-03-03] MEDS: SUMAtriptan SUCCINATE 25 MG TABLET PO PRN ×2 (11:17→16:49)
[2019-03-03 17:30] VITALS: BP 125/80
[2019-03-03] MEDS: LIDOCAINE 5% TRANSDERMAL PATCH TD SCH (19:33)
[2019-03-04 06:36] VITALS: BP 123/86
[2019-03-04] MEDS: SUMAtriptan SUCCINATE 25 MG TABLET PO PRN ×3 (06:40→16:43)
[2019-03-04] MEDS: -LIDODERM PATCH NOTE- MISC SCH (07:06)
[2019-03-04] MEDS: COLLOIDAL OATMEAL/DIMETH 227 GM LOTION TP SCH ×2 (09:00→16:49)
[2019-03-04] MEDS: OLANZapine 5 MG TABLET PO SCH ×2 (09:46→16:46)
[2019-03-04] MEDS: DIAZEPAM 5 MG TABLET PO SCH ×2 (09:46→16:46)
[2019-03-04] MEDS: OMEGA-3/DHA/EPA/FISH OIL 1,000 MG CAPSULE PO SCH (09:47)
[2019-03-04] MEDS: LamoTRIgine 25 MG TABLET PO SCH (09:47)
[2019-03-04] MEDS: NICOTINE 21 MG/24 HOUR PATCH TD SCH (09:47)
[2019-03-04] MEDS: OSELTAMIVIR PHOSPHATE 75 MG CAPSULE PO SCH ×2 (09:47→16:49)
[2019-03-04] MEDS: BENZTROPINE MESYLATE 1 MG TABLET PO SCH ×2 (09:47→16:46)
[2019-03-04 11:35] VITALS: BP 130/79
[2019-03-04] MEDS: ASPIRIN/ACETAMINOPHEN/CAFFEINE 250-250-65 MG TABLET PO PRN ×2 (11:41→20:07)
[2019-03-04 14:15] VITALS: BP 122/72
[2019-03-04 16:39] VITALS: BP 101/60
[2019-03-04] MEDS: LIDOCAINE 5% TRANSDERMAL PATCH TD SCH (18:49)
[2019-03-05 00:30] VITALS: BP 132/82
[2019-03-05] MEDS: ZOLPIDEM TARTRATE 10 MG TABLET PO PRN (01:08)
[2019-03-05] MEDS: SUMAtriptan SUCCINATE 25 MG TABLET PO PRN ×2 (01:09→12:04)
[2019-03-05] MEDS: -LIDODERM PATCH NOTE- MISC SCH (07:06)
[2019-03-05] MEDS: ASPIRIN/ACETAMINOPHEN/CAFFEINE 250-250-65 MG TABLET PO PRN ×2 (07:06→16:21)
[2019-03-05 08:56] VITALS: BP 109/63
[2019-03-05] MEDS: COLLOIDAL OATMEAL/DIMETH 227 GM LOTION TP SCH ×2 (09:00→16:23)
[2019-03-05] MEDS: OMEGA-3/DHA/EPA/FISH OIL 1,000 MG CAPSULE PO SCH (09:30)
[2019-03-05] MEDS: DIAZEPAM 5 MG TABLET PO SCH ×2 (09:30→16:20)
[2019-03-05] MEDS: OLANZapine 5 MG TABLET PO SCH ×2 (09:30→16:20)
[2019-03-05] MEDS: LamoTRIgine 25 MG TABLET PO SCH (09:30)
[2019-03-05] MEDS: OSELTAMIVIR PHOSPHATE 75 MG CAPSULE PO SCH ×2 (09:30→16:20)
[2019-03-05] MEDS: BENZTROPINE MESYLATE 1 MG TABLET PO SCH ×2 (09:30→16:20)
[2019-03-05] MEDS: NICOTINE 21 MG/24 HOUR PATCH TD SCH (09:31)
[2019-03-05] MEDS ORDERED: HALOPERIDOL LACTATE 5 MG/ML VIAL IM ONE (14:00)
[2019-03-05] MEDS ORDERED: DiphenhydrAMINE HCL 50 MG/ML VIAL IM ONE (14:00)
[2019-03-05] MEDS ORDERED: LORazepam 2 MG/ML VIAL IM ONE (14:00)
[2019-03-05 16:21] VITALS: BP 115/79
[2019-03-05] MEDS: LIDOCAINE 5% TRANSDERMAL PATCH TD SCH (19:00)
[2019-03-06] MEDS: -LIDODERM PATCH NOTE- MISC SCH (07:00)
[2019-03-06] MEDS: NICOTINE 21 MG/24 HOUR PATCH TD SCH (09:00)
[2019-03-06] MEDS: COLLOIDAL OATMEAL/DIMETH 227 GM LOTION TP SCH ×2 (09:00→17:00)
[2019-03-06] MEDS: LamoTRIgine 25 MG TABLET PO SCH (09:20)
[2019-03-06] MEDS: OSELTAMIVIR PHOSPHATE 75 MG CAPSULE PO SCH ×2 (09:20→16:49)
[2019-03-06] MEDS: DIAZEPAM 5 MG TABLET PO SCH ×2 (09:20→16:48)
[2019-03-06] MEDS: BENZTROPINE MESYLATE 1 MG TABLET PO SCH ×2 (09:20→16:49)
[2019-03-06] MEDS: OMEGA-3/DHA/EPA/FISH OIL 1,000 MG CAPSULE PO SCH (09:21)
[2019-03-06] MEDS: OLANZapine 5 MG TABLET PO SCH ×2 (09:21→16:49)
[2019-03-06] MEDS: ASPIRIN/ACETAMINOPHEN/CAFFEINE 250-250-65 MG TABLET PO PRN (17:14)
[2019-03-06] MEDS: LIDOCAINE 5% TRANSDERMAL PATCH TD SCH (19:00)
[2019-03-07] MEDS: -LIDODERM PATCH NOTE- MISC SCH (06:43)
[2019-03-07] MEDS: LamoTRIgine 25 MG TABLET PO SCH (10:32)
[2019-03-07] MEDS: DIAZEPAM 5 MG TABLET PO SCH ×2 (10:32→16:37)
[2019-03-07] MEDS: OLANZapine 5 MG TABLET PO SCH ×2 (10:33→16:32)
[2019-03-07] MEDS: BENZTROPINE MESYLATE 1 MG TABLET PO SCH ×2 (10:37→16:33)
[2019-03-07] MEDS: COLLOIDAL OATMEAL/DIMETH 227 GM LOTION TP SCH ×2 (10:39→16:38)
[2019-03-07] MEDS: NICOTINE 21 MG/24 HOUR PATCH TD SCH (10:44)
[2019-03-07] MEDS: ASPIRIN/ACETAMINOPHEN/CAFFEINE 250-250-65 MG TABLET PO PRN ×2 (11:45→20:30)
[2019-03-07] MEDS: SUMAtriptan SUCCINATE 25 MG TABLET PO PRN ×3 (13:31→18:26)
[2019-03-07] MEDS: OMEGA-3/DHA/EPA/FISH OIL 1,000 MG CAPSULE PO SCH (13:51)
[2019-03-07 16:19] VITALS: BP 124/77
[2019-03-07 18:26] VITALS: BP 146/99
[2019-03-07] MEDS: LIDOCAINE 5% TRANSDERMAL PATCH TD SCH (19:38)
[2019-03-07 20:30] VITALS: BP 126/85
[2019-03-07] MEDS: ZOLPIDEM TARTRATE 10 MG TABLET PO PRN (22:36)
[2019-03-08 01:25] VITALS: BP 113/83
[2019-03-08] MEDS: -LIDODERM PATCH NOTE- MISC SCH (07:04)
[2019-03-08] MEDS: LamoTRIgine 25 MG TABLET PO SCH (09:49)
[2019-03-08] MEDS: OLANZapine 5 MG TABLET PO SCH ×2 (09:49→16:19)
[2019-03-08] MEDS: DIAZEPAM 5 MG TABLET PO SCH ×2 (09:49→16:19)
[2019-03-08] MEDS: BENZTROPINE MESYLATE 1 MG TABLET PO SCH ×2 (09:49→16:19)
[2019-03-08] MEDS: NICOTINE 21 MG/24 HOUR PATCH TD SCH (09:49)
[2019-03-08] MEDS: OMEGA-3/DHA/EPA/FISH OIL 1,000 MG CAPSULE PO SCH (09:50)
[2019-03-08] MEDS: COLLOIDAL OATMEAL/DIMETH 227 GM LOTION TP SCH ×2 (09:51→19:40)
[2019-03-08] MEDS: ASPIRIN/ACETAMINOPHEN/CAFFEINE 250-250-65 MG TABLET PO PRN ×2 (11:19→20:03)
[2019-03-08] MEDS: SUMAtriptan SUCCINATE 25 MG TABLET PO PRN ×3 (12:22→17:16)
[2019-03-08 16:18] VITALS: BP 125/76
[2019-03-08] MEDS: LIDOCAINE 5% TRANSDERMAL PATCH TD SCH (19:41)
[2019-03-08 20:06] VITALS: BP 116/78
[2019-03-08] MEDS: ZOLPIDEM TARTRATE 10 MG TABLET PO PRN (23:40)
[2019-03-09 00:56] VITALS: BP 123/79
[2019-03-09] MEDS: -LIDODERM PATCH NOTE- MISC SCH (06:58)
[2019-03-09] MEDS: DIAZEPAM 5 MG TABLET PO SCH ×2 (09:18→16:46)
[2019-03-09] MEDS: OMEGA-3/DHA/EPA/FISH OIL 1,000 MG CAPSULE PO SCH (09:18)
[2019-03-09] MEDS: BENZTROPINE MESYLATE 1 MG TABLET PO SCH ×2 (09:18→16:46)
[2019-03-09] MEDS: LamoTRIgine 25 MG TABLET PO SCH (09:19)
[2019-03-09] MEDS: COLLOIDAL OATMEAL/DIMETH 227 GM LOTION TP SCH ×2 (09:19→16:47)
[2019-03-09] MEDS: NICOTINE 21 MG/24 HOUR PATCH TD SCH (09:20)
[2019-03-09] MEDS: OLANZapine 5 MG TABLET PO SCH ×2 (10:59→16:46)
[2019-03-09] MEDS: ASPIRIN/ACETAMINOPHEN/CAFFEINE 250-250-65 MG TABLET PO PRN (13:59)
[2019-03-09 15:00] VITALS: BP 117/74
[2019-03-09 16:10] VITALS: BP 112/74
[2019-03-09] MEDS: SUMAtriptan SUCCINATE 25 MG TABLET PO PRN (16:27)
[2019-03-09] MEDS: LIDOCAINE 5% TRANSDERMAL PATCH TD SCH (19:17)
[2019-03-10 00:23] VITALS: BP 100/60
[2019-03-10] MEDS: -LIDODERM PATCH NOTE- MISC SCH (07:01)
[2019-03-10] MEDS: COLLOIDAL OATMEAL/DIMETH 227 GM LOTION TP SCH ×2 (10:21→19:08)
[2019-03-10] MEDS: LamoTRIgine 25 MG TABLET PO SCH (10:21)
[2019-03-10] MEDS: OMEGA-3/DHA/EPA/FISH OIL 1,000 MG CAPSULE PO SCH (10:21)
[2019-03-10] MEDS: OLANZapine 5 MG TABLET PO SCH ×2 (10:21→16:49)
[2019-03-10] MEDS: DIAZEPAM 5 MG TABLET PO SCH ×2 (10:21→16:49)
[2019-03-10] MEDS: BENZTROPINE MESYLATE 1 MG TABLET PO SCH ×2 (10:21→16:48)
[2019-03-10] MEDS: NICOTINE 21 MG/24 HOUR PATCH TD SCH (10:22)
[2019-03-10] MEDS: PALIPERIDONE PALMITATE 234 MG/1.5 ML SYRINGE IM SCH (13:35)
[2019-03-10 16:46] VITALS: BP 112/63
[2019-03-10] MEDS: ASPIRIN/ACETAMINOPHEN/CAFFEINE 250-250-65 MG TABLET PO PRN (16:49)
[2019-03-10] MEDS: SUMAtriptan SUCCINATE 25 MG TABLET PO PRN ×2 (18:33→21:52)
[2019-03-10] MEDS: LIDOCAINE 5% TRANSDERMAL PATCH TD SCH (19:09)
[2019-03-10 21:55] VITALS: BP 121/81
[2019-03-11 00:26] VITALS: BP 105/67
[2019-03-11] MEDS: -LIDODERM PATCH NOTE- MISC SCH (07:00)
[2019-03-11] MEDS: DIAZEPAM 5 MG TABLET PO SCH ×2 (08:18→16:12)
[2019-03-11] MEDS: OMEGA-3/DHA/EPA/FISH OIL 1,000 MG CAPSULE PO SCH (08:18)
[2019-03-11] MEDS: LamoTRIgine 25 MG TABLET PO SCH (08:18)
[2019-03-11] MEDS: BENZTROPINE MESYLATE 1 MG TABLET PO SCH ×2 (08:18→16:12)
[2019-03-11] MEDS: OLANZapine 5 MG TABLET PO SCH ×2 (08:19→16:12)
[2019-03-11] MEDS: NICOTINE 21 MG/24 HOUR PATCH TD SCH (08:22)
[2019-03-11] MEDS: COLLOIDAL OATMEAL/DIMETH 227 GM LOTION TP SCH ×2 (08:23→17:00)
[2019-03-11 16:03] VITALS: BP 108/68
[2019-03-11] MEDS: ASPIRIN/ACETAMINOPHEN/CAFFEINE 250-250-65 MG TABLET PO PRN (16:13)
[2019-03-11 18:33] VITALS: BP 112/72
[2019-03-11] MEDS: SUMAtriptan SUCCINATE 25 MG TABLET PO PRN ×2 (18:33→21:33)
[2019-03-11] MEDS: LIDOCAINE 5% TRANSDERMAL PATCH TD SCH (19:30)
[2019-03-11 21:33] VITALS: BP 102/64
[2019-03-12 00:15] VITALS: BP 104/71
[2019-03-12] MEDS: ASPIRIN/ACETAMINOPHEN/CAFFEINE 250-250-65 MG TABLET PO PRN ×2 (00:18→11:00)
[2019-03-12 00:26] VITALS: BP 104/71
[2019-03-12] MEDS: SUMAtriptan SUCCINATE 25 MG TABLET PO PRN ×3 (00:48→13:34)
[2019-03-12 03:02] VITALS: BP 106/73
[2019-03-12] MEDS: -LIDODERM PATCH NOTE- MISC SCH (07:00)
[2019-03-12 08:05] VITALS: BP 94/59
[2019-03-12] MEDS: LamoTRIgine 25 MG TABLET PO SCH (09:00)
[2019-03-12] MEDS: NICOTINE 21 MG/24 HOUR PATCH TD SCH (10:18)
[2019-03-12] MEDS: OMEGA-3/DHA/EPA/FISH OIL 1,000 MG CAPSULE PO SCH (10:18)
[2019-03-12] MEDS: COLLOIDAL OATMEAL/DIMETH 227 GM LOTION TP SCH ×2 (10:18→16:29)
[2019-03-12] MEDS: BENZTROPINE MESYLATE 1 MG TABLET PO SCH ×2 (10:18→16:28)
[2019-03-12] MEDS: OLANZapine 5 MG TABLET PO SCH ×2 (10:18→16:28)
[2019-03-12 11:00] VITALS: BP 107/65
[2019-03-12 16:14] VITALS: BP 113/78
[2019-03-12] MEDS: LIDOCAINE 5% TRANSDERMAL PATCH TD SCH (19:49)
[2019-03-13] MEDS: -LIDODERM PATCH NOTE- MISC SCH (07:05)
[2019-03-13 08:12] VITALS: BP 81/50
[2019-03-13] MEDS: LamoTRIgine 25 MG TABLET PO SCH (09:00)
[2019-03-13] MEDS: COLLOIDAL OATMEAL/DIMETH 227 GM LOTION TP SCH ×2 (11:06→16:59)
[2019-03-13] MEDS: OLANZapine 5 MG TABLET PO SCH ×2 (11:07→16:59)
[2019-03-13] MEDS: BENZTROPINE MESYLATE 1 MG TABLET PO SCH ×2 (11:07→16:59)
[2019-03-13] MEDS: OMEGA-3/DHA/EPA/FISH OIL 1,000 MG CAPSULE PO SCH (11:07)
[2019-03-13] MEDS: NICOTINE 21 MG/24 HOUR PATCH TD SCH (11:07)
[2019-03-13 16:04] VITALS: BP 107/72
[2019-03-13] MEDS: LIDOCAINE 5% TRANSDERMAL PATCH TD SCH (19:38)
[2019-03-14] MEDS: -LIDODERM PATCH NOTE- MISC SCH (07:22)
[2019-03-14 08:46] VITALS: BP 102/60
[2019-03-14] MEDS: LamoTRIgine 25 MG TABLET PO SCH (09:00)
[2019-03-14] MEDS: OLANZapine 5 MG TABLET PO SCH ×2 (10:12→16:32)
[2019-03-14] MEDS: OMEGA-3/DHA/EPA/FISH OIL 1,000 MG CAPSULE PO SCH (10:12)
[2019-03-14] MEDS: BENZTROPINE MESYLATE 1 MG TABLET PO SCH ×2 (10:12→16:32)
[2019-03-14] MEDS: COLLOIDAL OATMEAL/DIMETH 227 GM LOTION TP SCH ×2 (10:13→16:33)
[2019-03-14] MEDS: NICOTINE 21 MG/24 HOUR PATCH TD SCH (10:13)
[2019-03-14 16:07] VITALS: BP 108/64
[2019-03-14] MEDS: ASPIRIN/ACETAMINOPHEN/CAFFEINE 250-250-65 MG TABLET PO PRN (16:36)
[2019-03-14] MEDS: LIDOCAINE 5% TRANSDERMAL PATCH TD SCH (19:22)
[2019-03-14] MEDS: SUMAtriptan SUCCINATE 25 MG TABLET PO PRN (19:23)
[2019-03-15] MEDS: -LIDODERM PATCH NOTE- MISC SCH (07:03)
[2019-03-15] MEDS: LamoTRIgine 25 MG TABLET PO SCH (09:00)
[2019-03-15] MEDS: NICOTINE 21 MG/24 HOUR PATCH TD SCH (09:35)
[2019-03-15] MEDS: OLANZapine 5 MG TABLET PO SCH ×2 (09:35→17:29)
[2019-03-15] MEDS: OMEGA-3/DHA/EPA/FISH OIL 1,000 MG CAPSULE PO SCH (09:35)
[2019-03-15] MEDS: BENZTROPINE MESYLATE 1 MG TABLET PO SCH ×2 (09:36→17:29)
[2019-03-15] MEDS: COLLOIDAL OATMEAL/DIMETH 227 GM LOTION TP SCH ×2 (09:41→17:29)
[2019-03-15] MEDS ORDERED: INFLUENZA VIRUS VACCINE QVS 2019-20 (3YR+)/PF 60 MCG/0.5 ML SYRINGE IM ONE (10:30)
[2019-03-15] MEDS ORDERED: HEPATITIS A VACCINE, INACTI [ADULT] 1,440 UNITS/ML VIAL IM ONE (10:30)
[2019-03-15] MEDS ORDERED: PNEUMOCOCCAL VACCINE POLYVALENT 0.5 ML VIAL [PPSV23] IM ONE (10:30)
[2019-03-15 16:45] VITALS: BP 100/66
[2019-03-15] MEDS: LIDOCAINE 5% TRANSDERMAL PATCH TD SCH (19:53)
[2019-03-15 20:22] VITALS: BP 106/71
[2019-03-15] MEDS: ASPIRIN/ACETAMINOPHEN/CAFFEINE 250-250-65 MG TABLET PO PRN (20:22)
[2019-03-16] MEDS: -LIDODERM PATCH NOTE- MISC SCH (07:13)
[2019-03-16 08:16] VITALS: BP 108/72
[2019-03-16] MEDS: OMEGA-3/DHA/EPA/FISH OIL 1,000 MG CAPSULE PO SCH (08:24)
[2019-03-16] MEDS: OLANZapine 5 MG TABLET PO SCH ×2 (08:24→16:35)
[2019-03-16] MEDS: COLLOIDAL OATMEAL/DIMETH 227 GM LOTION TP SCH ×2 (08:25→16:35)
[2019-03-16] MEDS: BENZTROPINE MESYLATE 1 MG TABLET PO SCH ×2 (08:25→16:35)
[2019-03-16] MEDS: NICOTINE 21 MG/24 HOUR PATCH TD SCH (08:25)
[2019-03-16 16:06] VITALS: BP 102/69
[2019-03-16] MEDS: ASPIRIN/ACETAMINOPHEN/CAFFEINE 250-250-65 MG TABLET PO PRN (16:06)
[2019-03-16 18:34] VITALS: BP 118/60
[2019-03-16] MEDS: SUMAtriptan SUCCINATE 25 MG TABLET PO PRN ×2 (18:34→21:47)
[2019-03-16] MEDS: LIDOCAINE 5% TRANSDERMAL PATCH TD SCH (19:01)
[2019-03-16 21:47] VITALS: BP 114/66
[2019-03-17 07:15] VITALS: BP 115/70
[2019-03-17] MEDS: -LIDODERM PATCH NOTE- MISC SCH (07:25)
[2019-03-17 08:16] VITALS: BP 118/76
[2019-03-17] MEDS: NICOTINE 21 MG/24 HOUR PATCH TD SCH (09:35)
[2019-03-17] MEDS: OMEGA-3/DHA/EPA/FISH OIL 1,000 MG CAPSULE PO SCH (09:35)
[2019-03-17] MEDS: OLANZapine 5 MG TABLET PO SCH (09:35)
[2019-03-17] MEDS: BENZTROPINE MESYLATE 1 MG TABLET PO SCH (09:35)
[2019-03-17] MEDS: COLLOIDAL OATMEAL/DIMETH 227 GM LOTION TP SCH (09:36)
[2019-03-17] MEDS ORDERED: FISH1 PO (09:41)
[2019-03-17] MEDS ORDERED: OLAN5TAB2 PO (09:41)
[2019-03-17] MEDS ORDERED: LIDO700A15 TD (09:41)
[2019-03-17] MEDS: ASPIRIN/ACETAMINOPHEN/CAFFEINE 250-250-65 MG TABLET PO PRN (13:45)
== END 2019-03-17 14:25 | disposition home or self-care (01) | DRG 885 ==
LOC: B2X 12:51 → 3EI 03-01 07:59 → 3EX 03-01 10:01 → B2X 03-03 22:05
PROVIDERS: ADMIT Psychiatry & Neurology Psychiatry; ATTEND Psychiatry & Neurology Psychiatry
DX: F20.0 Paranoid schizophrenia (principal); R45.851 Suicidal ideations; G47.00 Insomnia, unspecified; M54.5 Low back pain; J10.1 Influenza due to other identified influenza virus with other respiratory manifestations; R51 Headache; K59.00 Constipation, unspecified; W18.39XA Other fall on same level, initial encounter; Y92.231 Patient bathroom in hospital as the place of occurrence of the external cause; Y93.89 Activity, other specified; Y99.8 Other external cause status; Z91.010 Allergy to peanuts; Z91.018 Allergy to other foods
CPT/HCPCS: 83036; 83735; 84100; 84443; 85007; 86706; 86708; 87081; 87804; 90632; 90686; 90732; 93005; G0378; J1200; J1630; J2060; Q0162

== ENCOUNTER 2019-02-28 21:25 | Emergency (ER) | payer MEDICARE, OTHER ==
[~2019-02-28] VITALS: Ht 180.3 cm; Wt 82.0 kg
[~2019-02-28 21:25] MED LIST changes: -DIPH25 PO; -OLAN10TA6 PO
[2019-03-01] MEDS ORDERED: CARISOPRODOL 350 MG TABLET PO ONE (00:45)
[2019-03-01 01:10] LABS: INFLUENZA TYPE A NEGATIVE FOR TYPE A (NEGATIVE); INFLUENZA TYPE B POSITIVE FOR TYPE B (NEGATIVE)
[2019-03-01] MEDS ORDERED: OSELTAMIVIR PHOSPHATE 75 MG CAPSULE PO ONE (01:45)
[2019-03-01] MEDS ORDERED: ZOLPIDEM TARTRATE 10 MG TABLET PO ONE (04:30)
[2019-03-01 07:11] VITALS: BP 134/81
== END 2019-03-01 07:40 | disposition other institution (70) ==
LOC: EMS 21:29
DX: J10.1 Influenza due to other identified influenza virus with other respiratory manifestations (principal); F20.9 Schizophrenia, unspecified; R51 Headache; F31.9 Bipolar disorder, unspecified; Z91.030 Bee allergy status; Z91.018 Allergy to other foods
CPT/HCPCS: 87804

== ENCOUNTER 2020-08-08 17:19 | Inpatient (IN) | payer MEDICARE, MEDICAID ==
[~2020-08-08] VITALS: Ht 180.3 cm; Wt 80.8 kg
[~2020-08-08 17:19] MED LIST changes: +CARI350T26 PO; +CLON-592 PO; -CLON.5 PO; -DIVA-78 PO; -DOCU-275 PO; -ESCI10TA PO; +FLUO-191 PO; -LAMO25TA25 PO; +MELO-107 PO; +PALI6TAB15 PO; +PERCT PO; +PERID15L MM; +QUET300T2 PO; -TERB15CR TP; +VALP250C48 PO
[2020-08-09 00:16] VITALS: BP 115/75
[2020-08-09 07:32] LABS: BASOPHILS % (AUTO) 0.4 % (0.0-2.0); EOSINOPHILS % (AUTO) 2.8 % (1.0-6.0); HEMATOCRIT 43.6 % (41-53); LYMPHOCYTES # (AUTO) 2.8 K/uL (1.0-4.8); LYMPHOCYTES % (AUTO) 43.3 % (22.0-44.0); MEAN CORPUSCULAR HEMOGLOBIN 32.6 pg (26.0-34.0); MEAN CORPUSCULAR HGB CONC 34.4 G/dL (31.0-37.0); MEAN CORPUSCULAR VOLUME 95 fL (80-100); MONOCYTES # (AUTO) 0.6 K/uL (0.1-1.0); MONOCYTES % (AUTO) 9.7 % (2.0-9.0); NEUTROPHILS # (AUTO) 2.8 K/uL (1.8-7.7); NEUTROPHILS % (AUTO) 43.8 % (40.0-70.0); PLATELET COUNT (AUTO) 200 K/uL (150-450); RED BLOOD CELL COUNT(AUTO) 4.61 MIL/uL (4.50-5.90); RED CELL DISTRIBUTION WIDTH 12.6 % (11.5-14.5)
[2020-08-09 08:00] LABS: HEMOGLOBIN A1C 5.3 % (3.8-5.6)
[2020-08-09 08:02] LABS: ALANINE AMINOTRANSFERASE 16 U/L (12-78); ALBUMIN 3.1 g/dL (3.4-5.0); ALKALINE PHOSPHATASE 70 U/L (46-116); ANION GAP 7 mmol/L (8-16); ASPARTATE AMINOTRANSFERASE 14 U/L (15-37); BILIRUBIN,TOTAL 0.2 mg/dL (0.1-1.0); CALCIUM, TOTAL 8.4 mg/dL (8.8-10.5); CARBON DIOXIDE 26 mmol/L (22-29); CHLORIDE 109 mmol/L (98-107); CHOL/HDL RATIO 5.9 (4.2-7.3); CHOLESTEROL 183 mg/dL (131-200); CREATININE 0.71 mg/dL (0.60-1.30); FREE T4 (FREE THYROXINE) 0.93 ng/dL (0.76-1.46); GLOMERULAR FILTR. RATE CALC > 60 mL/min (>60); GLUCOSE,RANDOM 125 mg/dL (70-110); HDL CHOLESTEROL 31 mg/dL (40-60); LDL CHOL (CALC.) 103 mg/dL (0-130); POTASSIUM 3.6 mmol/L (3.5-5.1); SODIUM SERUM 142 mmol/L (136-145); THYROID STIMULATING HORMONE 1.08 uIU/mL (0.36-3.74); TOTAL PROTEIN, SERUM 6.7 g/dL (6.4-8.2); TRIGLYCERIDES 245 mg/dL (15-150); UREA NITROGEN, BLOOD 19 mg/dL (7-18)
[2020-08-09] MEDS ORDERED: BACITRACIN 28 GM OINTMENT TP PRN (09:00)
[2020-08-09] MEDS ORDERED: ONDANSETRON HCL 4 MG TABLET PO PRN (09:00)
[2020-08-09] MEDS ORDERED: DOCUSATE SODIUM 100 MG CAPSULE PO PRN (09:00)
[2020-08-09] MEDS ORDERED: ALBUTEROL SULFATE HFA 90 MCG/PUFF 8 GM INHALER IH PRN (09:00)
[2020-08-09] MEDS ORDERED: LOPERAMIDE HCL 2 MG CAPSULE PO PRN (09:00)
[2020-08-09] MEDS ORDERED: PETROLATUM,WHITE 28 GM JELLY TP PRN (09:00)
[2020-08-09] MEDS ORDERED: CloNIDine HCL 0.1 MG TABLET PO PRN (09:00)
[2020-08-09] MEDS ORDERED: OMEPRAZOLE 20 MG CAPSULE PO PRN (09:00)
[2020-08-09] MEDS ORDERED: MAGNESIUM HYDROXIDE SUSPENSION 30 ML UDCUP PO PRN (09:00)
[2020-08-09] MEDS ORDERED: ACETAMINOPHEN 325 MG TABLET PO PRN (09:00)
[2020-08-09] MEDS ORDERED: MAG HYDROX/AL HYDROX/SIMETH ES 30 ML SUSPENSION UDCUP PO PRN (09:00)
[2020-08-09] MEDS: OMEGA-3/DHA/EPA/FISH OIL 1,000 MG CAPSULE PO SCH (09:54)
[2020-08-09] MEDS: MULTIVITAMINS WITH MINERALS, THERAPEUTIC TABLET PO SCH (09:54)
[2020-08-09] MEDS: LORazepam 2 MG TABLET PO PRN ×2 (11:15→16:08)
[2020-08-09 12:00] VITALS: BP 108/81
[2020-08-09 16:34] VITALS: BP 109/70
[2020-08-10] MEDS: VALPROIC ACID 250 MG CAPSULE PO SCH ×2 (08:26→20:18)
[2020-08-10] MEDS: OMEGA-3/DHA/EPA/FISH OIL 1,000 MG CAPSULE PO SCH (08:26)
[2020-08-10] MEDS: BENZTROPINE MESYLATE 1 MG TABLET PO SCH ×2 (08:26→16:07)
[2020-08-10] MEDS: MULTIVITAMINS WITH MINERALS, THERAPEUTIC TABLET PO SCH (08:27)
[2020-08-10] MEDS: ClonazePAM 0.5 MG TABLET PO SCH ×2 (08:27→16:07)
[2020-08-10 08:56] VITALS: BP 102/60
[2020-08-10] MEDS: LORazepam 2 MG TABLET PO PRN ×3 (10:33→20:18)
[2020-08-10 16:37] VITALS: BP 105/65
[2020-08-10] MEDS: PALIPERIDONE 6 MG ER TABLET PO SCH (20:17)
[2020-08-10] MEDS: QUEtiapine FUMARATE 300 MG TABLET PO SCH (20:17)
[2020-08-10] MEDS ORDERED: PALIPERIDONE PALMITATE 234 MG/1.5 ML SYRINGE IM ONE (21:45)
[2020-08-11 06:54] VITALS: BP 99/58
[2020-08-11 08:30] VITALS: BP 94/63
[2020-08-11] MEDS: BENZTROPINE MESYLATE 1 MG TABLET PO SCH ×2 (09:13→16:18)
[2020-08-11] MEDS: MULTIVITAMINS WITH MINERALS, THERAPEUTIC TABLET PO SCH (09:13)
[2020-08-11] MEDS: OMEGA-3/DHA/EPA/FISH OIL 1,000 MG CAPSULE PO SCH (09:13)
[2020-08-11] MEDS: ClonazePAM 0.5 MG TABLET PO SCH ×2 (09:13→17:16)
[2020-08-11] MEDS: VALPROIC ACID 250 MG CAPSULE PO SCH ×2 (09:14→20:05)
[2020-08-11] MEDS: LORazepam 2 MG TABLET PO PRN ×3 (11:26→20:19)
[2020-08-11 16:13] VITALS: BP 96/63
[2020-08-11] MEDS: PALIPERIDONE 6 MG ER TABLET PO SCH (20:20)
[2020-08-11] MEDS: QUEtiapine FUMARATE 300 MG TABLET PO SCH (20:20)
[2020-08-12 05:58] VITALS: BP 98/60
[2020-08-12 08:04] VITALS: BP 88/60
[2020-08-12] MEDS: BENZTROPINE MESYLATE 1 MG TABLET PO SCH ×3 (08:10→16:33)
[2020-08-12] MEDS: MULTIVITAMINS WITH MINERALS, THERAPEUTIC TABLET PO SCH ×2 (08:11→08:46)
[2020-08-12] MEDS: ClonazePAM 0.5 MG TABLET PO SCH ×2 (08:11→16:33)
[2020-08-12] MEDS: OMEGA-3/DHA/EPA/FISH OIL 1,000 MG CAPSULE PO SCH ×2 (08:11→08:46)
[2020-08-12] MEDS: VALPROIC ACID 250 MG CAPSULE PO SCH ×3 (08:11→20:20)
[2020-08-12] MEDS: LORazepam 2 MG TABLET PO PRN ×3 (10:11→18:56)
[2020-08-12 17:05] VITALS: BP 90/64
[2020-08-12] MEDS: QUEtiapine FUMARATE 300 MG TABLET PO SCH (20:20)
[2020-08-13 06:21] VITALS: BP 91/56
[2020-08-13] MEDS: MULTIVITAMINS WITH MINERALS, THERAPEUTIC TABLET PO SCH (08:41)
[2020-08-13] MEDS: ClonazePAM 0.5 MG TABLET PO SCH ×2 (08:41→16:23)
[2020-08-13] MEDS: VALPROIC ACID 250 MG CAPSULE PO SCH ×2 (08:41→20:08)
[2020-08-13] MEDS: OMEGA-3/DHA/EPA/FISH OIL 1,000 MG CAPSULE PO SCH (08:42)
[2020-08-13] MEDS: BENZTROPINE MESYLATE 1 MG TABLET PO SCH ×2 (08:42→16:23)
[2020-08-13] MEDS: LORazepam 2 MG TABLET PO PRN ×2 (10:40→16:23)
[2020-08-13 10:50] VITALS: BP 112/71
[2020-08-13 16:10] VITALS: BP 128/78
[2020-08-13] MEDS: ZOLPIDEM TARTRATE 10 MG TABLET PO PRN (20:08)
[2020-08-13] MEDS: QUEtiapine FUMARATE 300 MG TABLET PO SCH (20:09)
[2020-08-14 00:44] VITALS: BP 102/71
[2020-08-14] MEDS: LORazepam 2 MG TABLET PO PRN ×4 (08:15→21:53)
[2020-08-14 08:35] VITALS: BP 112/76
[2020-08-14] MEDS: ClonazePAM 0.5 MG TABLET PO SCH ×2 (09:08→17:31)
[2020-08-14] MEDS: BENZTROPINE MESYLATE 1 MG TABLET PO SCH ×2 (09:08→17:30)
[2020-08-14] MEDS: VALPROIC ACID 250 MG CAPSULE PO SCH ×2 (09:08→20:23)
[2020-08-14] MEDS: MULTIVITAMINS WITH MINERALS, THERAPEUTIC TABLET PO SCH (09:08)
[2020-08-14] MEDS: OMEGA-3/DHA/EPA/FISH OIL 1,000 MG CAPSULE PO SCH (09:08)
[2020-08-14 16:16] VITALS: BP 121/78
[2020-08-14] MEDS: ZOLPIDEM TARTRATE 10 MG TABLET PO PRN (20:23)
[2020-08-14] MEDS: QUEtiapine FUMARATE 300 MG TABLET PO SCH (20:24)
[2020-08-15 06:46] VITALS: BP 109/76
[2020-08-15] MEDS: LORazepam 2 MG TABLET PO PRN ×3 (08:00→17:03)
[2020-08-15 08:44] VITALS: BP 100/71
[2020-08-15] MEDS: OMEGA-3/DHA/EPA/FISH OIL 1,000 MG CAPSULE PO SCH (08:57)
[2020-08-15] MEDS: VALPROIC ACID 250 MG CAPSULE PO SCH ×2 (08:57→19:09)
[2020-08-15] MEDS: BENZTROPINE MESYLATE 1 MG TABLET PO SCH ×2 (08:57→17:06)
[2020-08-15] MEDS: ClonazePAM 0.5 MG TABLET PO SCH ×2 (08:57→17:06)
[2020-08-15] MEDS: MULTIVITAMINS WITH MINERALS, THERAPEUTIC TABLET PO SCH (08:57)
[2020-08-15] MEDS: IBUPROFEN 600 MG TABLET PO PRN (13:36)
[2020-08-15 16:15] VITALS: BP 138/92
[2020-08-15] MEDS: HALOPERIDOL 5 MG TABLET PO PRN (17:03)
[2020-08-15] MEDS: ZOLPIDEM TARTRATE 10 MG TABLET PO PRN (19:09)
[2020-08-15] MEDS: QUEtiapine FUMARATE 300 MG TABLET PO SCH (19:09)
[2020-08-16 02:32] VITALS: BP 101/71
[2020-08-16] MEDS: LORazepam 2 MG TABLET PO PRN ×4 (06:45→21:12)
[2020-08-16 08:00] VITALS: BP 108/74
[2020-08-16] MEDS: ClonazePAM 0.5 MG TABLET PO SCH ×2 (08:45→17:01)
[2020-08-16] MEDS: MULTIVITAMINS WITH MINERALS, THERAPEUTIC TABLET PO SCH (08:45)
[2020-08-16] MEDS: BENZTROPINE MESYLATE 1 MG TABLET PO SCH ×2 (08:46→17:01)
[2020-08-16] MEDS: VALPROIC ACID 250 MG CAPSULE PO SCH ×2 (08:46→20:39)
[2020-08-16] MEDS: OMEGA-3/DHA/EPA/FISH OIL 1,000 MG CAPSULE PO SCH (08:47)
[2020-08-16] MEDS ORDERED: LORazepam 2 MG/ML VIAL ONE (13:38)
[2020-08-16] MEDS ORDERED: DiphenhydrAMINE HCL 50 MG/ML VIAL ONE (13:38)
[2020-08-16] MEDS ORDERED: HALOPERIDOL LACTATE 5 MG/ML VIAL ONE (13:38)
[2020-08-16] MEDS ORDERED: DiphenhydrAMINE HCL 50 MG/ML VIAL IM ONE (13:45)
[2020-08-16] MEDS ORDERED: LORazepam 2 MG/ML VIAL IM ONE (13:45)
[2020-08-16] MEDS ORDERED: HALOPERIDOL LACTATE 5 MG/ML VIAL IM ONE (13:45)
[2020-08-16 16:20] VITALS: BP 110/68
[2020-08-16] MEDS: HALOPERIDOL 5 MG TABLET PO PRN (17:01)
[2020-08-16] MEDS: QUEtiapine FUMARATE 300 MG TABLET PO SCH (20:38)
[2020-08-16] MEDS: ZOLPIDEM TARTRATE 10 MG TABLET PO PRN (20:39)
[2020-08-17 05:57] VITALS: BP 119/83
[2020-08-17] MEDS: HALOPERIDOL 5 MG TABLET PO PRN (08:15)
[2020-08-17] MEDS: LORazepam 2 MG TABLET PO PRN ×2 (08:15→12:15)
[2020-08-17 08:16] VITALS: BP 108/73
[2020-08-17] MEDS: OMEGA-3/DHA/EPA/FISH OIL 1,000 MG CAPSULE PO SCH (09:13)
[2020-08-17] MEDS: VALPROIC ACID 250 MG CAPSULE PO SCH ×2 (09:13→20:37)
[2020-08-17] MEDS: BENZTROPINE MESYLATE 1 MG TABLET PO SCH ×2 (09:13→16:11)
[2020-08-17] MEDS: ClonazePAM 0.5 MG TABLET PO SCH ×2 (09:13→16:11)
[2020-08-17] MEDS: MULTIVITAMINS WITH MINERALS, THERAPEUTIC TABLET PO SCH (09:13)
[2020-08-17 16:29] VITALS: BP 112/79
[2020-08-17 16:50] VITALS: BP 110/60
[2020-08-17] MEDS: QUEtiapine FUMARATE 300 MG TABLET PO SCH (20:37)
[2020-08-17] MEDS: ZOLPIDEM TARTRATE 10 MG TABLET PO PRN (20:40)
[2020-08-18 05:59] VITALS: BP 107/74
[2020-08-18] MEDS: LORazepam 2 MG TABLET PO PRN ×3 (06:15→16:16)
[2020-08-18] MEDS: BENZTROPINE MESYLATE 1 MG TABLET PO SCH ×2 (09:27→16:16)
[2020-08-18] MEDS: VALPROIC ACID 250 MG CAPSULE PO SCH ×2 (09:27→19:46)
[2020-08-18] MEDS: OMEGA-3/DHA/EPA/FISH OIL 1,000 MG CAPSULE PO SCH (09:27)
[2020-08-18] MEDS: MULTIVITAMINS WITH MINERALS, THERAPEUTIC TABLET PO SCH (09:28)
[2020-08-18] MEDS: ClonazePAM 0.5 MG TABLET PO SCH ×2 (09:28→16:16)
[2020-08-18 10:29] VITALS: BP 97/69
[2020-08-18 16:20] VITALS: BP 110/76
[2020-08-18] MEDS: QUEtiapine FUMARATE 300 MG TABLET PO SCH (19:46)
[2020-08-19] MEDS: LORazepam 2 MG TABLET PO PRN ×2 (01:55→08:00)
[2020-08-19] MEDS: ZOLPIDEM TARTRATE 10 MG TABLET PO PRN (01:55)
[2020-08-19 02:03] VITALS: BP 112/72
[2020-08-19] MEDS ORDERED: LORazepam 1 MG TABLET ONE ×2 (07:50→07:51)
[2020-08-19] MEDS: OMEGA-3/DHA/EPA/FISH OIL 1,000 MG CAPSULE PO SCH (09:43)
[2020-08-19] MEDS: VALPROIC ACID 250 MG CAPSULE PO SCH ×2 (09:43→19:57)
[2020-08-19] MEDS: BENZTROPINE MESYLATE 1 MG TABLET PO SCH ×2 (09:43→16:29)
[2020-08-19] MEDS: ClonazePAM 0.5 MG TABLET PO SCH ×2 (09:44→16:27)
[2020-08-19] MEDS: MULTIVITAMINS WITH MINERALS, THERAPEUTIC TABLET PO SCH (09:44)
[2020-08-19 09:50] VITALS: BP 114/64
[2020-08-19] MEDS: LORazepam 1 MG TABLET PO PRN (12:54)
[2020-08-19 16:16] VITALS: BP 117/82
[2020-08-19] MEDS: QUEtiapine FUMARATE 300 MG TABLET PO SCH (19:58)
[2020-08-20 01:54] VITALS: BP 115/77
[2020-08-20 03:50] VITALS: BP 114/70
[2020-08-20] MEDS: LORazepam 1 MG TABLET PO PRN ×3 (03:54→13:26)
[2020-08-20 07:02] LABS: COVID AG,FIA SOURCE NASOPHARYNGEAL
[2020-08-20] MEDS: ClonazePAM 0.5 MG TABLET PO SCH ×2 (08:23→16:37)
[2020-08-20] MEDS: VALPROIC ACID 250 MG CAPSULE PO SCH ×2 (08:23→20:37)
[2020-08-20] MEDS: MULTIVITAMINS WITH MINERALS, THERAPEUTIC TABLET PO SCH (08:23)
[2020-08-20] MEDS: BENZTROPINE MESYLATE 1 MG TABLET PO SCH ×2 (08:23→16:37)
[2020-08-20] MEDS: OMEGA-3/DHA/EPA/FISH OIL 1,000 MG CAPSULE PO SCH (08:23)
[2020-08-20 08:38] VITALS: BP 114/79
[2020-08-20] MEDS: IBUPROFEN 600 MG TABLET PO PRN (14:48)
[2020-08-20 16:11] VITALS: BP 125/82
[2020-08-20] MEDS: LORazepam 2 MG TABLET PO PRN (18:15)
[2020-08-20] MEDS: QUEtiapine FUMARATE 300 MG TABLET PO SCH (20:37)
[2020-08-20] MEDS: ZOLPIDEM TARTRATE 10 MG TABLET PO PRN (21:25)
[2020-08-21 01:35] VITALS: BP 111/79
[2020-08-21] MEDS: LORazepam 2 MG TABLET PO PRN ×3 (05:10→15:02)
[2020-08-21 08:04] VITALS: BP 122/86
[2020-08-21] MEDS: VALPROIC ACID 250 MG CAPSULE PO SCH ×2 (08:11→20:04)
[2020-08-21] MEDS: OMEGA-3/DHA/EPA/FISH OIL 1,000 MG CAPSULE PO SCH (08:11)
[2020-08-21] MEDS: MULTIVITAMINS WITH MINERALS, THERAPEUTIC TABLET PO SCH (08:11)
[2020-08-21] MEDS: BENZTROPINE MESYLATE 1 MG TABLET PO SCH ×2 (08:12→16:06)
[2020-08-21] MEDS: ClonazePAM 0.5 MG TABLET PO SCH ×2 (08:13→16:06)
[2020-08-21 16:08] VITALS: BP 114/76
[2020-08-21] MEDS: QUEtiapine FUMARATE 300 MG TABLET PO SCH (20:07)
[2020-08-21] MEDS: ZOLPIDEM TARTRATE 10 MG TABLET PO PRN (20:07)
[2020-08-22 01:13] VITALS: BP 120/77
[2020-08-22] MEDS: VALPROIC ACID 250 MG CAPSULE PO SCH ×2 (08:01→19:42)
[2020-08-22] MEDS: MULTIVITAMINS WITH MINERALS, THERAPEUTIC TABLET PO SCH (08:01)
[2020-08-22] MEDS: BENZTROPINE MESYLATE 1 MG TABLET PO SCH ×2 (08:01→16:40)
[2020-08-22] MEDS: OMEGA-3/DHA/EPA/FISH OIL 1,000 MG CAPSULE PO SCH (08:01)
[2020-08-22] MEDS: ClonazePAM 0.5 MG TABLET PO SCH ×2 (08:02→16:40)
[2020-08-22 08:09] VITALS: BP 104/72
[2020-08-22] MEDS: LORazepam 2 MG TABLET PO PRN ×3 (09:02→18:41)
[2020-08-22 16:09] VITALS: BP 130/74
[2020-08-22] MEDS: QUEtiapine FUMARATE 300 MG TABLET PO SCH (19:42)
[2020-08-22] MEDS: ZOLPIDEM TARTRATE 10 MG TABLET PO PRN (19:42)
[2020-08-23 01:14] VITALS: BP 102/65
[2020-08-23 03:09] VITALS: BP 112/72
[2020-08-23] MEDS: LORazepam 2 MG TABLET PO PRN ×4 (03:14→20:30)
[2020-08-23] MEDS: BENZTROPINE MESYLATE 1 MG TABLET PO SCH ×2 (08:08→16:19)
[2020-08-23] MEDS: OMEGA-3/DHA/EPA/FISH OIL 1,000 MG CAPSULE PO SCH (08:08)
[2020-08-23] MEDS: MULTIVITAMINS WITH MINERALS, THERAPEUTIC TABLET PO SCH (08:08)
[2020-08-23] MEDS: ClonazePAM 0.5 MG TABLET PO SCH ×2 (08:08→16:19)
[2020-08-23 08:24] VITALS: BP 107/68
[2020-08-23] MEDS: VALPROIC ACID 250 MG CAPSULE PO SCH ×2 (09:16→21:44)
[2020-08-23 16:19] VITALS: BP 120/75
[2020-08-23] MEDS: ZOLPIDEM TARTRATE 10 MG TABLET PO PRN (20:30)
[2020-08-23] MEDS: QUEtiapine FUMARATE 300 MG TABLET PO SCH (21:44)
[2020-08-24 01:11] VITALS: BP 114/67
[2020-08-24 08:37] VITALS: BP 120/88
[2020-08-24] MEDS: BENZTROPINE MESYLATE 1 MG TABLET PO SCH ×2 (08:55→16:08)
[2020-08-24] MEDS: ClonazePAM 0.5 MG TABLET PO SCH ×2 (08:56→16:08)
[2020-08-24] MEDS: OMEGA-3/DHA/EPA/FISH OIL 1,000 MG CAPSULE PO SCH (08:56)
[2020-08-24] MEDS: MULTIVITAMINS WITH MINERALS, THERAPEUTIC TABLET PO SCH (08:56)
[2020-08-24] MEDS: VALPROIC ACID 250 MG CAPSULE PO SCH ×2 (08:56→21:06)
[2020-08-24 16:16] VITALS: BP 139/79
[2020-08-24 19:23] VITALS: BP 126/77
[2020-08-24] MEDS: IBUPROFEN 600 MG TABLET PO PRN (19:23)
[2020-08-24] MEDS: QUEtiapine FUMARATE 300 MG TABLET PO SCH (21:05)
[2020-08-25 01:06] VITALS: BP 102/63
[2020-08-25 08:18] VITALS: BP 134/84
[2020-08-25] MEDS: BENZTROPINE MESYLATE 1 MG TABLET PO SCH ×2 (08:29→16:44)
[2020-08-25] MEDS: VALPROIC ACID 250 MG CAPSULE PO SCH ×2 (08:29→20:13)
[2020-08-25] MEDS: MULTIVITAMINS WITH MINERALS, THERAPEUTIC TABLET PO SCH (08:29)
[2020-08-25] MEDS: OMEGA-3/DHA/EPA/FISH OIL 1,000 MG CAPSULE PO SCH (08:29)
[2020-08-25] MEDS: ClonazePAM 0.5 MG TABLET PO SCH ×2 (08:29→16:44)
[2020-08-25 16:13] VITALS: BP 121/85
[2020-08-25] MEDS: QUEtiapine FUMARATE 300 MG TABLET PO SCH (20:13)
[2020-08-25] MEDS: ZOLPIDEM TARTRATE 10 MG TABLET PO PRN (20:42)
[2020-08-26 00:27] VITALS: BP 118/70
[2020-08-26 08:11] VITALS: BP 110/71
[2020-08-26] MEDS: OMEGA-3/DHA/EPA/FISH OIL 1,000 MG CAPSULE PO SCH (08:37)
[2020-08-26] MEDS: ClonazePAM 0.5 MG TABLET PO SCH ×2 (08:37→16:52)
[2020-08-26] MEDS: VALPROIC ACID 250 MG CAPSULE PO SCH ×2 (08:37→21:17)
[2020-08-26] MEDS: BENZTROPINE MESYLATE 1 MG TABLET PO SCH ×2 (08:37→16:52)
[2020-08-26] MEDS: MULTIVITAMINS WITH MINERALS, THERAPEUTIC TABLET PO SCH (08:38)
[2020-08-26 16:23] VITALS: BP 107/65
[2020-08-26] MEDS: QUEtiapine FUMARATE 300 MG TABLET PO SCH (21:18)
[2020-08-26] MEDS: ZOLPIDEM TARTRATE 10 MG TABLET PO PRN (21:21)
[2020-08-27 00:55] VITALS: BP 124/78
[2020-08-27 08:13] VITALS: BP 107/52
[2020-08-27] MEDS: MULTIVITAMINS WITH MINERALS, THERAPEUTIC TABLET PO SCH (08:56)
[2020-08-27] MEDS: OMEGA-3/DHA/EPA/FISH OIL 1,000 MG CAPSULE PO SCH (08:56)
[2020-08-27] MEDS: ClonazePAM 0.5 MG TABLET PO SCH ×2 (08:56→16:03)
[2020-08-27] MEDS: BENZTROPINE MESYLATE 1 MG TABLET PO SCH ×2 (08:57→16:03)
[2020-08-27] MEDS: VALPROIC ACID 250 MG CAPSULE PO SCH ×2 (08:57→20:39)
[2020-08-27 16:37] VITALS: BP 106/79
[2020-08-27] MEDS: QUEtiapine FUMARATE 300 MG TABLET PO SCH (20:35)
[2020-08-27] MEDS: ZOLPIDEM TARTRATE 10 MG TABLET PO PRN (20:42)
[2020-08-28 00:16] VITALS: BP 110/72
[2020-08-28] MEDS: OMEGA-3/DHA/EPA/FISH OIL 1,000 MG CAPSULE PO SCH (08:45)
[2020-08-28] MEDS: VALPROIC ACID 250 MG CAPSULE PO SCH (08:46)
[2020-08-28] MEDS: MULTIVITAMINS WITH MINERALS, THERAPEUTIC TABLET PO SCH (08:46)
[2020-08-28] MEDS: BENZTROPINE MESYLATE 1 MG TABLET PO SCH (08:46)
[2020-08-28] MEDS: ClonazePAM 0.5 MG TABLET PO SCH (08:46)
[2020-08-28 09:32] VITALS: BP 110/74
[2020-08-28 16:31] VITALS: BP 133/75
[2020-09-05] MEDS ORDERED: PALIPERIDONE PALMITATE 234 MG/1.5 ML SYRINGE IM ONE (13:00)
[2020-09-07] MEDS ORDERED: PALIPERIDONE PALMITATE 234 MG/1.5 ML SYRINGE IM ONE (09:00)
== END 2020-08-28 17:56 | disposition home or self-care (01) | DRG 885 ==
LOC: B3A 23:11 → B2S 08-19 10:24
PROVIDERS: ADMIT Psychiatry & Neurology Psychiatry; ATTEND Psychiatry & Neurology Psychiatry
DX: F20.9 Schizophrenia, unspecified (principal); Z20.822 Contact with and (suspected) exposure to COVID-19; F41.9 Anxiety disorder, unspecified; G47.00 Insomnia, unspecified; K21.9 Gastro-esophageal reflux disease without esophagitis; K59.00 Constipation, unspecified; M62.838 Other muscle spasm; F19.10 Other psychoactive substance abuse, uncomplicated; Z88.8 Allergy status to other drugs, medicaments and biological substances; Z91.010 Allergy to peanuts; Z91.018 Allergy to other foods; Z79.899 Other long term (current) drug therapy; Z72.0 Tobacco use
CPT/HCPCS: 80053; 80061; 83036; 84439; 84443; 85025; 87081; J1200; J1630; J2060

== ENCOUNTER 2021-01-28 10:08 | Inpatient (IN) | payer MEDICARE, MEDICAID ==
[~2021-01-28] VITALS: Ht 180.3 cm; Wt 74.8 kg
[~2021-01-28 10:08] MED LIST changes: -CARI350T26 PO; -CLON-592 PO; -FLUO-191 PO; +HYDR-4808 PO; -MELO-107 PO; -OMEP20 PO; -PALI234D IM; -PALI6TAB15 PO; +PALI9TAB15 PO; -PERCT PO; -PERID15L MM; -QUET300T2 PO; -VALP250C48 PO
[2021-01-28 10:41] LABS: HEMOGLOBIN 15.2 g/dL (13.5-17.5); RED BLOOD CELL COUNT(AUTO) 4.72 MIL/uL (4.50-5.90)
[2021-01-28 10:42] LABS: HEMATOCRIT 42.8 % (41-53); LYMPHOCYTES % (AUTO) 32.6 % (22.0-44.0); MEAN CORPUSCULAR HEMOGLOBIN 32.2 pg (26.0-34.0); MEAN CORPUSCULAR HGB CONC 35.5 G/dL (31.0-37.0); MEAN CORPUSCULAR VOLUME 91 fL (80-100); MONOCYTES % (AUTO) 9.7 % (2.0-9.0); NEUTROPHILS % (AUTO) 56.8 % (40.0-70.0); PLATELET COUNT (AUTO) 202 K/uL (150-450); RED CELL DISTRIBUTION WIDTH 11.9 % (11.5-14.5)
[2021-01-28 10:42] LABS: COVID AG,FIA SOURCE NASOPHARYNGEAL
[2021-01-28 10:43] LABS: BASOPHILS % (AUTO) 0.4 % (0.0-2.0); EOSINOPHILS % (AUTO) 0.5 % (1.0-6.0); MONOCYTES # (AUTO) 0.9 K/uL (0.1-1.0); NEUTROPHILS # (AUTO) 5.3 K/uL (1.8-7.7)
[2021-01-28 10:57] LABS: ANION GAP 9 mmol/L (8-16); CALCIUM, TOTAL 9.5 mg/dL (8.8-10.5); CARBON DIOXIDE 28 mmol/L (22-29); CHLORIDE 101 mmol/L (98-107); CREATININE 1.11 mg/dL (0.60-1.30); GLOMERULAR FILTR. RATE CALC > 60 mL/min (>60); GLUCOSE,RANDOM 130 mg/dL (70-110); POTASSIUM 3.5 mmol/L (3.5-5.1); SODIUM SERUM 138 mmol/L (136-145); UREA NITROGEN, BLOOD 13 mg/dL (7-18)
[2021-01-28 11:03] LABS: ALANINE AMINOTRANSFERASE 34 U/L (12-78); ALBUMIN 4.3 g/dL (3.4-5.0); ALKALINE PHOSPHATASE 87 U/L (46-116); ASPARTATE AMINOTRANSFERASE 47 U/L (15-37); BILIRUBIN,TOTAL 1.1 mg/dL (0.1-1.0); TOTAL PROTEIN, SERUM 8.5 g/dL (6.4-8.2)
[2021-01-28 11:11] LABS: AMPHET/METH SCREEN,URINE NEGATIVE (NEGATIVE); BARBITURATE SCREEN, URINE NEGATIVE (NEGATIVE); BENZODIAZEPINES SCREEN,URINE NEGATIVE (NEGATIVE); CANNABINOID SCREEN,URINE NEGATIVE (NEGATIVE); COCAINE SCREEN,URINE NEGATIVE (NEGATIVE); METHADONE SCREEN, URINE NEGATIVE (NEGATIVE); OPIATE SCREEN,URINE NEGATIVE (NEGATIVE)
[2021-01-28 11:12] LABS: PHENCYCLIDINE SCREEN,URINE NEGATIVE (NEGATIVE)
[2021-01-28] MEDS ORDERED: HALOPERIDOL 5 MG TABLET PO PRN (12:30)
[2021-01-28] MEDS: ZOLPIDEM TARTRATE 10 MG TABLET PO PRN (20:29)
[2021-01-28] MEDS ORDERED: ACETAMINOPHEN 500 MG TABLET PO PRN (20:45)
[2021-01-28] MEDS: BENZTROPINE MESYLATE 1 MG TABLET PO SCH (23:32)
[2021-01-28] MEDS: PALIPERIDONE 6 MG ER TABLET PO SCH (23:32)
[2021-01-28] MEDS: ClonazePAM 0.5 MG TABLET PO SCH (23:32)
[2021-01-29] MEDS ORDERED: PALIPERIDONE PALMITATE 234 MG/1.5 ML SYRINGE IM SCH (09:00)
[2021-01-29] MEDS: ClonazePAM 0.5 MG TABLET PO SCH ×2 (09:33→20:29)
[2021-01-29] MEDS: BENZTROPINE MESYLATE 1 MG TABLET PO SCH ×2 (09:33→16:35)
[2021-01-29 10:00] VITALS: BP 115/78
[2021-01-29] MEDS ORDERED: INFLUENZA VIRUS VACCINE QVS 2021-22 (6MO+)/PF 60 MCG/0.5 ML SYRINGE IM. ONE (10:30)
[2021-01-29] MEDS: NICOTINE POLACRILEX 2 MG LOZENGE PO PRN ×2 (15:31→20:44)
[2021-01-29 16:21] VITALS: BP 122/87
[2021-01-29] MEDS ORDERED: ALBUTEROL SULFATE HFA 90 MCG/PUFF 8 GM INHALER IH PRN (18:15)
[2021-01-29] MEDS ORDERED: LOPERAMIDE HCL 2 MG CAPSULE PO PRN (18:15)
[2021-01-29] MEDS ORDERED: OMEPRAZOLE 20 MG CAPSULE PO PRN (18:15)
[2021-01-29] MEDS ORDERED: CloNIDine HCL 0.1 MG TABLET PO PRN (18:15)
[2021-01-29] MEDS ORDERED: PETROLATUM,WHITE 28 GM JELLY TP PRN (18:15)
[2021-01-29] MEDS ORDERED: MAGNESIUM HYDROXIDE SUSPENSION 30 ML UDCUP PO PRN (18:15)
[2021-01-29] MEDS ORDERED: BACITRACIN 28 GM OINTMENT TP PRN (18:15)
[2021-01-29] MEDS ORDERED: MAG HYDROX/AL HYDROX/SIMETH ES 30 ML SUSPENSION UDCUP PO PRN (18:15)
[2021-01-29] MEDS ORDERED: DOCUSATE SODIUM 100 MG CAPSULE PO PRN (18:15)
[2021-01-29] MEDS: PALIPERIDONE 6 MG ER TABLET PO SCH (20:30)
[2021-01-29] MEDS: ZOLPIDEM TARTRATE 10 MG TABLET PO PRN (20:45)
[2021-01-30] VITALS: BP 125/77
[2021-01-30] MEDS: IBUPROFEN 600 MG TABLET PO PRN ×2 (00:07→20:52)
[2021-01-30] MEDS: ONDANSETRON HCL 4 MG TABLET PO PRN (01:55)
[2021-01-30] MEDS: NICOTINE POLACRILEX 2 MG LOZENGE PO PRN ×4 (02:47→20:30)
[2021-01-30] MEDS: ClonazePAM 0.5 MG TABLET PO SCH ×2 (08:29→20:18)
[2021-01-30] MEDS: BENZTROPINE MESYLATE 1 MG TABLET PO SCH ×2 (08:30→16:08)
[2021-01-30 09:00] VITALS: BP 132/86
[2021-01-30 16:18] VITALS: BP 126/84
[2021-01-30] MEDS: ZOLPIDEM TARTRATE 10 MG TABLET PO PRN (20:18)
[2021-01-30] MEDS: PALIPERIDONE 6 MG ER TABLET PO SCH (20:18)
[2021-01-30 20:52] VITALS: BP 132/78
[2021-01-31 06:57] VITALS: BP 126/80
[2021-01-31] MEDS: NICOTINE POLACRILEX 2 MG LOZENGE PO PRN ×3 (07:27→20:21)
[2021-01-31 08:12] VITALS: BP 112/76
[2021-01-31] MEDS: ClonazePAM 0.5 MG TABLET PO SCH ×2 (08:26→20:14)
[2021-01-31] MEDS: BENZTROPINE MESYLATE 1 MG TABLET PO SCH ×2 (08:26→16:47)
[2021-01-31 16:11] VITALS: BP 118/79
[2021-01-31] MEDS: ZOLPIDEM TARTRATE 10 MG TABLET PO PRN (20:14)
[2021-01-31] MEDS: PALIPERIDONE 6 MG ER TABLET PO SCH (20:14)
[2021-01-31 21:00] VITALS: BP 118/79
[2021-01-31] MEDS: IBUPROFEN 600 MG TABLET PO PRN (21:26)
[2021-02-01 00:24] VITALS: BP 132/90
[2021-02-01] MEDS: BENZTROPINE MESYLATE 1 MG TABLET PO SCH ×2 (07:52→16:32)
[2021-02-01] MEDS: NICOTINE POLACRILEX 2 MG LOZENGE PO PRN ×3 (07:52→18:39)
[2021-02-01] MEDS: ClonazePAM 0.5 MG TABLET PO SCH ×2 (07:52→20:48)
[2021-02-01 08:31] VITALS: BP 129/72
[2021-02-01] MEDS: ACETAMINOPHEN 325 MG TABLET PO PRN (10:51)
[2021-02-01] MEDS: LIDOCAINE 5% TRANSDERMAL PATCH TD SCH (15:36)
[2021-02-01 16:22] VITALS: BP 146/86
[2021-02-01] MEDS: PALIPERIDONE 6 MG ER TABLET PO SCH (20:48)
[2021-02-01] MEDS: ZOLPIDEM TARTRATE 10 MG TABLET PO PRN (20:49)
[2021-02-01] MEDS: -LIDODERM PATCH NOTE- MISC SCH (21:58)
[2021-02-02 00:35] VITALS: BP 134/82
[2021-02-02 08:00] VITALS: BP 108/76
[2021-02-02] MEDS: LIDOCAINE 5% TRANSDERMAL PATCH TD SCH (08:03)
[2021-02-02] MEDS: BENZTROPINE MESYLATE 1 MG TABLET PO SCH ×2 (08:03→16:26)
[2021-02-02] MEDS: ClonazePAM 0.5 MG TABLET PO SCH ×2 (08:03→20:03)
[2021-02-02] MEDS: NICOTINE POLACRILEX 2 MG LOZENGE PO PRN ×3 (08:03→18:29)
[2021-02-02 16:28] VITALS: BP 119/63
[2021-02-02] MEDS: PALIPERIDONE 6 MG ER TABLET PO SCH (20:03)
[2021-02-02] MEDS: -LIDODERM PATCH NOTE- MISC SCH (20:07)
[2021-02-02] MEDS: ZOLPIDEM TARTRATE 10 MG TABLET PO PRN (21:21)
[2021-02-03 06:45] VITALS: BP 123/71
[2021-02-03 07:30] LABS: COVID AG,FIA SOURCE NASOPHARYNGEAL
[2021-02-03] MEDS: KETOCONAZOLE 2% 15 GM CREAM TP SCH (08:05)
[2021-02-03] MEDS: LIDOCAINE 5% TRANSDERMAL PATCH TD SCH (08:05)
[2021-02-03] MEDS: ClonazePAM 0.5 MG TABLET PO SCH ×2 (08:05→20:07)
[2021-02-03] MEDS: BENZTROPINE MESYLATE 1 MG TABLET PO SCH ×2 (08:05→16:38)
[2021-02-03] MEDS: NICOTINE POLACRILEX 2 MG LOZENGE PO PRN ×2 (08:06→12:30)
[2021-02-03 08:20] VITALS: BP 124/78
[2021-02-03] MEDS: IBUPROFEN 600 MG TABLET PO PRN (09:10)
[2021-02-03] MEDS: ACETAMINOPHEN 325 MG TABLET PO PRN (12:55)
[2021-02-03] MEDS: LORATADINE 10 MG TABLET PO PRN (14:15)
[2021-02-03] MEDS: BENZOCAINE 10% 7 GM GEL TP PRN (15:51)
[2021-02-03 16:35] VITALS: BP 128/74
[2021-02-03] MEDS: PALIPERIDONE 6 MG ER TABLET PO SCH (20:07)
[2021-02-03] MEDS: -LIDODERM PATCH NOTE- MISC SCH (20:07)
[2021-02-04 00:10] VITALS: BP 126/78
[2021-02-04 08:12] VITALS: BP 130/80
[2021-02-04] MEDS: BENZTROPINE MESYLATE 1 MG TABLET PO SCH ×2 (09:06→16:34)
[2021-02-04] MEDS: LIDOCAINE 5% TRANSDERMAL PATCH TD SCH (09:06)
[2021-02-04] MEDS: ClonazePAM 0.5 MG TABLET PO SCH ×2 (09:07→20:45)
[2021-02-04] MEDS: NICOTINE POLACRILEX 2 MG LOZENGE PO PRN ×2 (09:10→13:31)
[2021-02-04 16:11] VITALS: BP 122/74
[2021-02-04] MEDS: ZOLPIDEM TARTRATE 10 MG TABLET PO PRN (20:45)
[2021-02-04] MEDS: PALIPERIDONE 6 MG ER TABLET PO SCH (20:45)
[2021-02-04] MEDS: -LIDODERM PATCH NOTE- MISC SCH (20:48)
[2021-02-05 00:42] VITALS: BP 144/84
[2021-02-05] MEDS: ClonazePAM 0.5 MG TABLET PO SCH ×2 (08:07→20:36)
[2021-02-05] MEDS: BENZTROPINE MESYLATE 1 MG TABLET PO SCH ×2 (08:07→15:59)
[2021-02-05] MEDS: LIDOCAINE 5% TRANSDERMAL PATCH TD SCH (08:07)
[2021-02-05 08:20] VITALS: BP 130/80
[2021-02-05] MEDS: KETOCONAZOLE 2% 15 GM CREAM TP SCH (08:39)
[2021-02-05] MEDS: NICOTINE POLACRILEX 2 MG LOZENGE PO PRN ×2 (11:31→16:00)
[2021-02-05] MEDS: LORATADINE 10 MG TABLET PO PRN (13:32)
[2021-02-05 16:26] VITALS: BP 109/71
[2021-02-05] MEDS: IBUPROFEN 600 MG TABLET PO PRN (18:49)
[2021-02-05] MEDS: ZOLPIDEM TARTRATE 10 MG TABLET PO PRN (20:35)
[2021-02-05] MEDS: PALIPERIDONE 6 MG ER TABLET PO SCH (20:36)
[2021-02-05] MEDS: -LIDODERM PATCH NOTE- MISC SCH (20:36)
[2021-02-06 08:31] VITALS: BP 100/55
[2021-02-06] MEDS: BENZTROPINE MESYLATE 1 MG TABLET PO SCH ×2 (09:16→16:27)
[2021-02-06] MEDS: ClonazePAM 0.5 MG TABLET PO SCH ×2 (09:17→20:03)
[2021-02-06] MEDS: LIDOCAINE 5% TRANSDERMAL PATCH TD SCH (09:17)
[2021-02-06] MEDS: NICOTINE POLACRILEX 2 MG LOZENGE PO PRN ×3 (10:46→19:48)
[2021-02-06] MEDS: LORATADINE 10 MG TABLET PO PRN (12:08)
[2021-02-06 16:56] VITALS: BP 117/71
[2021-02-06] MEDS: PALIPERIDONE 6 MG ER TABLET PO SCH (20:03)
[2021-02-06] MEDS: ZOLPIDEM TARTRATE 10 MG TABLET PO PRN (20:03)
[2021-02-06] MEDS: -LIDODERM PATCH NOTE- MISC SCH (20:03)
[2021-02-07 05:49] VITALS: BP 115/68
[2021-02-07 08:43] VITALS: BP 95/61
[2021-02-07] MEDS: LIDOCAINE 5% TRANSDERMAL PATCH TD SCH (09:00)
[2021-02-07] MEDS: LORATADINE 10 MG TABLET PO PRN (11:09)
[2021-02-07] MEDS: ClonazePAM 0.5 MG TABLET PO SCH ×2 (11:10→20:15)
[2021-02-07] MEDS: BENZTROPINE MESYLATE 1 MG TABLET PO SCH ×2 (11:10→16:40)
[2021-02-07] MEDS: NICOTINE POLACRILEX 2 MG LOZENGE PO PRN ×2 (11:10→17:15)
[2021-02-07] MEDS: KETOCONAZOLE 2% 15 GM CREAM TP SCH (11:11)
[2021-02-07] MEDS: BENZOCAINE 10% 7 GM GEL TP PRN (13:30)
[2021-02-07 18:47] VITALS: BP 110/67
[2021-02-07] MEDS: PALIPERIDONE 6 MG ER TABLET PO SCH (20:15)
[2021-02-07] MEDS: ZOLPIDEM TARTRATE 10 MG TABLET PO PRN (20:15)
[2021-02-07] MEDS: -LIDODERM PATCH NOTE- MISC SCH (20:15)
[2021-02-08 00:10] VITALS: BP 97/55
[2021-02-08] MEDS: BENZTROPINE MESYLATE 1 MG TABLET PO SCH ×2 (12:30→16:27)
[2021-02-08] MEDS: ClonazePAM 0.5 MG TABLET PO SCH ×2 (12:31→20:04)
[2021-02-08] MEDS: LORATADINE 10 MG TABLET PO PRN (12:31)
[2021-02-08] MEDS: NICOTINE POLACRILEX 2 MG LOZENGE PO PRN ×2 (12:31→18:32)
[2021-02-08] MEDS: LIDOCAINE 5% TRANSDERMAL PATCH TD SCH (12:31)
[2021-02-08 16:09] VITALS: BP 112/70
[2021-02-08 18:32] VITALS: BP 114/75
[2021-02-08] MEDS: IBUPROFEN 600 MG TABLET PO PRN (18:32)
[2021-02-08] MEDS: PALIPERIDONE 6 MG ER TABLET PO SCH (20:04)
[2021-02-08] MEDS: ZOLPIDEM TARTRATE 10 MG TABLET PO PRN (20:04)
[2021-02-08] MEDS: -LIDODERM PATCH NOTE- MISC SCH (20:04)
[2021-02-09 00:13] VITALS: BP 107/63
[2021-02-09] MEDS: ClonazePAM 0.5 MG TABLET PO SCH ×2 (08:58→21:00)
[2021-02-09] MEDS: BENZTROPINE MESYLATE 1 MG TABLET PO SCH ×2 (08:58→17:00)
[2021-02-09] MEDS: NICOTINE POLACRILEX 2 MG LOZENGE PO PRN ×2 (08:58→14:19)
[2021-02-09] MEDS: KETOCONAZOLE 2% 15 GM CREAM TP SCH (08:58)
[2021-02-09] MEDS: LIDOCAINE 5% TRANSDERMAL PATCH TD SCH (09:23)
[2021-02-09 12:30] VITALS: BP 112/70
[2021-02-09 17:39] VITALS: BP 103/68
[2021-02-09] MEDS: -LIDODERM PATCH NOTE- MISC SCH (21:00)
[2021-02-09] MEDS: PALIPERIDONE 6 MG ER TABLET PO SCH (21:00)
[2021-02-10 02:11] VITALS: BP 112/64
[2021-02-10 08:00] VITALS: BP 143/82
[2021-02-10] MEDS: NICOTINE POLACRILEX 2 MG LOZENGE PO PRN (08:55)
[2021-02-10] MEDS: ClonazePAM 0.5 MG TABLET PO SCH ×2 (08:56→20:35)
[2021-02-10] MEDS: BENZTROPINE MESYLATE 1 MG TABLET PO SCH ×2 (08:56→16:47)
[2021-02-10] MEDS: LIDOCAINE 5% TRANSDERMAL PATCH TD SCH (08:56)
[2021-02-10 16:21] VITALS: BP 109/76
[2021-02-10] MEDS: PALIPERIDONE 6 MG ER TABLET PO SCH (20:35)
[2021-02-11 04:15] VITALS: BP 91/54
[2021-02-11 08:24] VITALS: BP 100/55
[2021-02-11] MEDS: BENZTROPINE MESYLATE 1 MG TABLET PO SCH ×2 (09:06→16:36)
[2021-02-11] MEDS: ClonazePAM 0.5 MG TABLET PO SCH ×2 (09:06→20:46)
[2021-02-11] MEDS: KETOCONAZOLE 2% 15 GM CREAM TP SCH (09:07)
[2021-02-11 15:36] LABS: GLUCOMETER DEV NAME(LOC) POC.BV
[2021-02-11] MEDS: NICOTINE POLACRILEX 2 MG LOZENGE PO PRN (16:22)
[2021-02-11 16:26] VITALS: BP 112/74
[2021-02-11] MEDS: PALIPERIDONE 6 MG ER TABLET PO SCH (20:46)
[2021-02-12 07:00] VITALS: BP 112/79
[2021-02-12] MEDS: BENZTROPINE MESYLATE 1 MG TABLET PO SCH ×2 (10:29→17:06)
[2021-02-12] MEDS: ClonazePAM 0.5 MG TABLET PO SCH ×2 (10:29→20:02)
[2021-02-12 13:42] VITALS: BP 107/77
[2021-02-12 16:58] VITALS: BP 100/64
[2021-02-12] MEDS: NICOTINE POLACRILEX 2 MG LOZENGE PO PRN (19:21)
[2021-02-12] MEDS: PALIPERIDONE 6 MG ER TABLET PO SCH (20:02)
[2021-02-12] MEDS: ZOLPIDEM TARTRATE 10 MG TABLET PO PRN (20:58)
[2021-02-13 06:45] VITALS: BP 101/62
[2021-02-13 08:23] VITALS: BP 98/79
[2021-02-13] MEDS: ClonazePAM 0.5 MG TABLET PO SCH ×2 (09:04→20:26)
[2021-02-13] MEDS: BENZTROPINE MESYLATE 1 MG TABLET PO SCH ×2 (09:04→16:41)
[2021-02-13] MEDS: KETOCONAZOLE 2% 15 GM CREAM TP SCH (10:33)
[2021-02-13 16:30] VITALS: BP 114/63
[2021-02-13] MEDS: PALIPERIDONE 6 MG ER TABLET PO SCH (20:26)
[2021-02-13] MEDS: ZOLPIDEM TARTRATE 10 MG TABLET PO PRN (20:26)
[2021-02-14 00:43] VITALS: BP 105/66
[2021-02-14 08:35] VITALS: BP 99/57
[2021-02-14] MEDS: BENZTROPINE MESYLATE 1 MG TABLET PO SCH ×2 (09:14→16:11)
[2021-02-14] MEDS: ClonazePAM 0.5 MG TABLET PO SCH ×2 (09:14→20:11)
[2021-02-14] MEDS: NICOTINE POLACRILEX 2 MG LOZENGE PO PRN ×2 (12:30→18:32)
[2021-02-14 16:14] VITALS: BP 107/84
[2021-02-14] MEDS: PALIPERIDONE 6 MG ER TABLET PO SCH (20:11)
[2021-02-14] MEDS: ZOLPIDEM TARTRATE 10 MG TABLET PO PRN (20:52)
[2021-02-15 01:11] VITALS: BP 105/64
[2021-02-15 08:21] VITALS: BP 125/69
[2021-02-15] MEDS: ClonazePAM 0.5 MG TABLET PO SCH ×2 (08:40→20:47)
[2021-02-15] MEDS: BENZTROPINE MESYLATE 1 MG TABLET PO SCH ×2 (08:40→16:35)
[2021-02-15] MEDS: KETOCONAZOLE 2% 15 GM CREAM TP SCH (08:44)
[2021-02-15] MEDS: NICOTINE POLACRILEX 2 MG LOZENGE PO PRN ×2 (11:19→19:30)
[2021-02-15 16:14] VITALS: BP 112/77
[2021-02-15] MEDS: PALIPERIDONE 6 MG ER TABLET PO SCH (20:47)
[2021-02-15] MEDS: ZOLPIDEM TARTRATE 10 MG TABLET PO PRN (20:47)
[2021-02-16 04:00] VITALS: BP 115/70
[2021-02-16 08:12] VITALS: BP 113/60
[2021-02-16] MEDS: BENZTROPINE MESYLATE 1 MG TABLET PO SCH ×2 (09:45→15:50)
[2021-02-16] MEDS: ClonazePAM 0.5 MG TABLET PO SCH ×2 (09:45→20:05)
[2021-02-16] MEDS: NICOTINE POLACRILEX 2 MG LOZENGE PO PRN ×3 (09:57→21:50)
[2021-02-16 16:16] VITALS: BP 138/87
[2021-02-16] MEDS: IBUPROFEN 600 MG TABLET PO PRN (16:44)
[2021-02-16] MEDS: ONDANSETRON HCL 4 MG TABLET PO PRN (17:31)
[2021-02-16] MEDS: ZOLPIDEM TARTRATE 10 MG TABLET PO PRN (20:05)
[2021-02-16] MEDS: PALIPERIDONE 6 MG ER TABLET PO SCH (20:05)
[2021-02-17 02:24] VITALS: BP 104/59
[2021-02-17 08:10] VITALS: BP 110/69
[2021-02-17] MEDS: KETOCONAZOLE 2% 15 GM CREAM TP SCH ×3 (09:00→11:12)
[2021-02-17] MEDS: ClonazePAM 0.5 MG TABLET PO SCH ×2 (09:24→20:05)
[2021-02-17] MEDS: BENZTROPINE MESYLATE 1 MG TABLET PO SCH ×2 (09:24→16:18)
[2021-02-17] MEDS: NICOTINE POLACRILEX 2 MG LOZENGE PO PRN ×3 (11:13→22:50)
[2021-02-17 16:13] VITALS: BP 114/78
[2021-02-17] MEDS: ONDANSETRON HCL 4 MG TABLET PO PRN (17:49)
[2021-02-17] MEDS: PALIPERIDONE 6 MG ER TABLET PO SCH (20:04)
[2021-02-17] MEDS: ZOLPIDEM TARTRATE 10 MG TABLET PO PRN (20:05)
[2021-02-17] MEDS: BENZOCAINE 10% 7 GM GEL TP PRN (21:53)
[2021-02-17 22:49] VITALS: BP 108/81
[2021-02-17] MEDS: IBUPROFEN 600 MG TABLET PO PRN (22:49)
[2021-02-18 01:02] VITALS: BP 115/75
[2021-02-18 08:02] LABS: COVID AG,FIA SOURCE NASOPHARYNGEAL
[2021-02-18 08:11] VITALS: BP 112/62
[2021-02-18] MEDS: NICOTINE POLACRILEX 2 MG LOZENGE PO PRN ×4 (08:29→21:24)
[2021-02-18] MEDS: ClonazePAM 0.5 MG TABLET PO SCH ×2 (09:08→20:32)
[2021-02-18] MEDS: BENZTROPINE MESYLATE 1 MG TABLET PO SCH ×2 (09:08→16:44)
[2021-02-18 16:18] VITALS: BP 120/82
[2021-02-18] MEDS: ACETAMINOPHEN 325 MG TABLET PO PRN (19:03)
[2021-02-18] MEDS: PALIPERIDONE 6 MG ER TABLET PO SCH (20:32)
[2021-02-18] MEDS: ZOLPIDEM TARTRATE 10 MG TABLET PO PRN (20:42)
[2021-02-19 00:21] VITALS: BP 114/79
[2021-02-19 08:19] VITALS: BP 100/57
[2021-02-19] MEDS: BENZTROPINE MESYLATE 1 MG TABLET PO SCH ×2 (09:09→16:42)
[2021-02-19] MEDS: ClonazePAM 0.5 MG TABLET PO SCH ×2 (09:10→20:49)
[2021-02-19] MEDS: KETOCONAZOLE 2% 15 GM CREAM TP SCH (09:31)
[2021-02-19] MEDS: NICOTINE POLACRILEX 2 MG LOZENGE PO PRN ×2 (11:28→16:42)
[2021-02-19] MEDS: ONDANSETRON HCL 4 MG TABLET PO PRN (15:16)
[2021-02-19 16:42] VITALS: BP 113/68
[2021-02-19] MEDS: IBUPROFEN 600 MG TABLET PO PRN (16:42)
[2021-02-19] MEDS: PALIPERIDONE 6 MG ER TABLET PO SCH (20:49)
[2021-02-20 00:50] VITALS: BP 102/62
[2021-02-20 08:25] VITALS: BP 124/84
[2021-02-20] MEDS: ClonazePAM 0.5 MG TABLET PO SCH ×2 (10:04→20:40)
[2021-02-20] MEDS: BENZTROPINE MESYLATE 1 MG TABLET PO SCH ×2 (10:05→16:36)
[2021-02-20] MEDS: NICOTINE POLACRILEX 2 MG LOZENGE PO PRN ×3 (10:18→18:55)
[2021-02-20 16:21] VITALS: BP 131/80
[2021-02-20] MEDS: PALIPERIDONE 6 MG ER TABLET PO SCH (20:40)
[2021-02-20] MEDS: ZOLPIDEM TARTRATE 10 MG TABLET PO PRN (20:55)
[2021-02-21 00:35] VITALS: BP 127/75
[2021-02-21] MEDS: NICOTINE POLACRILEX 2 MG LOZENGE PO PRN ×5 (00:45→20:16)
[2021-02-21 08:36] VITALS: BP 127/88
[2021-02-21] MEDS: KETOCONAZOLE 2% 15 GM CREAM TP SCH (08:59)
[2021-02-21] MEDS: ClonazePAM 0.5 MG TABLET PO SCH ×2 (08:59→20:07)
[2021-02-21] MEDS: BENZTROPINE MESYLATE 1 MG TABLET PO SCH ×2 (08:59→16:09)
[2021-02-21 16:28] VITALS: BP 104/69
[2021-02-21] MEDS: IBUPROFEN 600 MG TABLET PO PRN (19:14)
[2021-02-21] MEDS: PALIPERIDONE 6 MG ER TABLET PO SCH (20:07)
[2021-02-21] MEDS: ZOLPIDEM TARTRATE 10 MG TABLET PO PRN (20:14)
[2021-02-22 00:40] VITALS: BP 106/63
[2021-02-22] MEDS: BENZTROPINE MESYLATE 1 MG TABLET PO SCH ×2 (08:11→16:06)
[2021-02-22] MEDS: ClonazePAM 0.5 MG TABLET PO SCH ×2 (08:11→20:05)
[2021-02-22 09:13] VITALS: BP 112/68
[2021-02-22] MEDS: NICOTINE POLACRILEX 2 MG LOZENGE PO PRN ×3 (11:37→21:04)
[2021-02-22] MEDS: IBUPROFEN 600 MG TABLET PO PRN (14:09)
[2021-02-22 16:16] VITALS: BP 122/87
[2021-02-22] MEDS: ONDANSETRON HCL 4 MG TABLET PO PRN (19:51)
[2021-02-22] MEDS: PALIPERIDONE 6 MG ER TABLET PO SCH (20:05)
[2021-02-22] MEDS: ZOLPIDEM TARTRATE 10 MG TABLET PO PRN (20:57)
[2021-02-23 07:09] LABS: COVID AG,FIA SOURCE NASOPHARYNGEAL
[2021-02-23 08:42] VITALS: BP 122/50
[2021-02-23] MEDS: KETOCONAZOLE 2% 15 GM CREAM TP SCH (09:11)
[2021-02-23] MEDS: BENZTROPINE MESYLATE 1 MG TABLET PO SCH ×2 (09:11→16:28)
[2021-02-23] MEDS: ClonazePAM 0.5 MG TABLET PO SCH ×2 (09:11→20:38)
[2021-02-23] MEDS: NICOTINE POLACRILEX 2 MG LOZENGE PO PRN ×3 (10:26→18:50)
[2021-02-23] MEDS ORDERED: VENLAFAXINE HCL 37.5 MG TABLET PO SCH (11:45)
[2021-02-23] MEDS ORDERED: VENLAFAXINE HCL 75 MG TABLET PO ONE (11:45)
[2021-02-23 16:18] VITALS: BP 122/70
[2021-02-23] MEDS: PALIPERIDONE 6 MG ER TABLET PO SCH (20:38)
[2021-02-23] MEDS: ZOLPIDEM TARTRATE 10 MG TABLET PO PRN (21:01)
[2021-02-24 00:52] VITALS: BP 112/67
[2021-02-24] MEDS: NICOTINE POLACRILEX 2 MG LOZENGE PO PRN ×4 (06:34→20:52)
[2021-02-24] MEDS: VENLAFAXINE HCL 37.5 MG TABLET PO SCH (07:45)
[2021-02-24] MEDS: BENZTROPINE MESYLATE 1 MG TABLET PO SCH ×2 (07:46→16:26)
[2021-02-24] MEDS: ClonazePAM 0.5 MG TABLET PO SCH ×2 (07:46→20:34)
[2021-02-24 08:29] VITALS: BP 116/77
[2021-02-24 16:10] VITALS: BP 114/76
[2021-02-24] MEDS: ACETAMINOPHEN 325 MG TABLET PO PRN (16:27)
[2021-02-24] MEDS: PALIPERIDONE 6 MG ER TABLET PO SCH (20:35)
[2021-02-24] MEDS: ZOLPIDEM TARTRATE 10 MG TABLET PO PRN (20:52)
[2021-02-25] MEDS: NICOTINE POLACRILEX 2 MG LOZENGE PO PRN ×4 (01:22→19:21)
[2021-02-25 03:41] VITALS: BP 122/77
[2021-02-25] MEDS: IBUPROFEN 600 MG TABLET PO PRN (03:41)
[2021-02-25] MEDS: BENZTROPINE MESYLATE 1 MG TABLET PO SCH ×2 (08:32→16:35)
[2021-02-25] MEDS: ClonazePAM 0.5 MG TABLET PO SCH ×2 (08:32→20:34)
[2021-02-25] MEDS: VENLAFAXINE HCL 37.5 MG TABLET PO SCH (08:32)
[2021-02-25] MEDS: KETOCONAZOLE 2% 15 GM CREAM TP SCH (08:32)
[2021-02-25 16:14] VITALS: BP 102/63
[2021-02-25] MEDS: PALIPERIDONE 6 MG ER TABLET PO SCH (20:34)
[2021-02-25] MEDS: ZOLPIDEM TARTRATE 10 MG TABLET PO PRN (21:03)
[2021-02-26 00:44] VITALS: BP 110/65
[2021-02-26] MEDS: NICOTINE POLACRILEX 2 MG LOZENGE PO PRN ×4 (02:38→18:33)
[2021-02-26] MEDS: ClonazePAM 0.5 MG TABLET PO SCH ×2 (08:09→20:08)
[2021-02-26] MEDS: BENZTROPINE MESYLATE 1 MG TABLET PO SCH ×2 (08:09→16:41)
[2021-02-26] MEDS: VENLAFAXINE HCL 37.5 MG TABLET PO SCH (08:09)
[2021-02-26 08:13] VITALS: BP 131/79
[2021-02-26] MEDS: IBUPROFEN 600 MG TABLET PO PRN (12:19)
[2021-02-26] MEDS: ONDANSETRON HCL 4 MG TABLET PO PRN (12:19)
[2021-02-26] MEDS: PALIPERIDONE PALMITATE 156 MG/ML SYRINGE IM SCH (13:54)
[2021-02-26 16:38] VITALS: BP 137/70
[2021-02-26] MEDS: PALIPERIDONE 6 MG ER TABLET PO SCH (20:08)
[2021-02-26] MEDS: ZOLPIDEM TARTRATE 10 MG TABLET PO PRN (21:03)
[2021-02-27 01:54] VITALS: BP 121/85
[2021-02-27] MEDS: NICOTINE POLACRILEX 2 MG LOZENGE PO PRN ×5 (02:18→21:53)
[2021-02-27 08:07] VITALS: BP 115/77
[2021-02-27] MEDS: BENZTROPINE MESYLATE 1 MG TABLET PO SCH ×2 (08:12→16:38)
[2021-02-27] MEDS: ClonazePAM 0.5 MG TABLET PO SCH ×2 (08:12→20:34)
[2021-02-27] MEDS: VENLAFAXINE HCL 37.5 MG TABLET PO SCH (08:12)
[2021-02-27] MEDS: KETOCONAZOLE 2% 15 GM CREAM TP SCH (08:13)
[2021-02-27 16:45] VITALS: BP 134/83
[2021-02-27] MEDS: ACETAMINOPHEN 325 MG TABLET PO PRN (18:10)
[2021-02-27] MEDS: ONDANSETRON HCL 4 MG TABLET PO PRN (18:10)
[2021-02-27] MEDS: PALIPERIDONE 6 MG ER TABLET PO SCH (20:33)
[2021-02-27] MEDS: ZOLPIDEM TARTRATE 10 MG TABLET PO PRN (20:34)
[2021-02-28 00:52] VITALS: BP 125/75
[2021-02-28] MEDS: NICOTINE POLACRILEX 2 MG LOZENGE PO PRN ×4 (04:23→20:08)
[2021-02-28 08:05] VITALS: BP 144/94
[2021-02-28 08:14] LABS: BAND NEUTROPHILS % (MANUAL) 0 % (0-5)
[2021-02-28 08:22] LABS: HEMATOCRIT 41.2 % (41-53); MEAN CORPUSCULAR HEMOGLOBIN 32.4 pg (26.0-34.0); MEAN CORPUSCULAR HGB CONC 36.4 G/dL (31.0-37.0); MEAN CORPUSCULAR VOLUME 89 fL (80-100); PLATELET COUNT (AUTO) 256 K/uL (150-450); RED BLOOD CELL COUNT(AUTO) 4.61 MIL/uL (4.50-5.90)
[2021-02-28 08:36] LABS: HEMOGLOBIN A1C 5.2 % (3.8-5.6)
[2021-02-28 08:54] LABS: ANION GAP 4 mmol/L (8-16); CALCIUM, TOTAL 9.1 mg/dL (8.8-10.5); CARBON DIOXIDE 31 mmol/L (22-29); CHLORIDE 100 mmol/L (98-107); CHOL/HDL RATIO 4.1 (4.2-7.3); CHOLESTEROL 163 mg/dL (131-200); GLOMERULAR FILTR. RATE CALC > 60 mL/min (>60); GLUCOSE,RANDOM 96 mg/dL (70-110); HDL CHOLESTEROL 40 mg/dL (40-60); LDL CHOL (CALC.) 106 mg/dL (0-130); PHOSPHORUS 3.8 mg/dL (2.5-4.9); POTASSIUM 3.8 mmol/L (3.5-5.1); SODIUM SERUM 135 mmol/L (136-145); THYROID STIMULATING HORMONE 0.99 uIU/mL (0.36-3.74); TRIGLYCERIDES 86 mg/dL (15-150); UREA NITROGEN, BLOOD 9 mg/dL (7-18)
[2021-02-28] MEDS: VENLAFAXINE HCL 37.5 MG TABLET PO SCH (09:22)
[2021-02-28] MEDS: BENZTROPINE MESYLATE 1 MG TABLET PO SCH ×3 (09:22→17:19)
[2021-02-28 09:51] LABS: EOSINOPHILS % (MANUAL) 1 % (1-6); LYMPHOCYTES % (MANUAL) 45 % (22-44); MONOCYTES % (MANUAL) 3 % (2-9); SEGMENTED NEUTROPHILS % 51 % (40-70)
[2021-02-28 16:16] VITALS: BP 115/80
[2021-02-28] MEDS: ClonazePAM 0.5 MG TABLET PO SCH (20:45)
[2021-02-28] MEDS: PALIPERIDONE 6 MG ER TABLET PO SCH (20:45)
[2021-02-28] MEDS: ZOLPIDEM TARTRATE 10 MG TABLET PO PRN (21:45)
[2021-03-01 03:43] VITALS: BP 100/66
[2021-03-01] MEDS: NICOTINE POLACRILEX 2 MG LOZENGE PO PRN ×5 (03:49→20:21)
[2021-03-01] MEDS: BENZTROPINE MESYLATE 1 MG TABLET PO SCH ×2 (08:04→16:29)
[2021-03-01] MEDS: VENLAFAXINE HCL 37.5 MG TABLET PO SCH (08:04)
[2021-03-01] MEDS: KETOCONAZOLE 2% 15 GM CREAM TP SCH (08:05)
[2021-03-01 08:25] VITALS: BP 115/78
[2021-03-01 09:46] LABS: GLUCOMETER DEV NAME(LOC) POC.BV
[2021-03-01 16:36] VITALS: BP 138/89
[2021-03-01] MEDS: ClonazePAM 0.5 MG TABLET PO SCH ×2 (20:13→21:02)
[2021-03-01] MEDS: PALIPERIDONE 6 MG ER TABLET PO SCH ×2 (20:13→21:02)
[2021-03-01] MEDS: ZOLPIDEM TARTRATE 10 MG TABLET PO PRN (21:56)
[2021-03-02 03:43] VITALS: BP 110/76
[2021-03-02] MEDS: NICOTINE POLACRILEX 2 MG LOZENGE PO PRN ×4 (03:49→17:07)
[2021-03-02] MEDS: BENZTROPINE MESYLATE 1 MG TABLET PO SCH ×2 (08:05→16:12)
[2021-03-02] MEDS: VENLAFAXINE HCL 37.5 MG TABLET PO SCH (08:05)
[2021-03-02 08:25] VITALS: BP 135/83
[2021-03-02 16:19] VITALS: BP 115/77
[2021-03-02] MEDS: PALIPERIDONE 6 MG ER TABLET PO SCH (20:03)
[2021-03-02] MEDS: ClonazePAM 0.5 MG TABLET PO SCH (20:03)
[2021-03-03] MEDS: NICOTINE POLACRILEX 2 MG LOZENGE PO PRN ×5 (01:56→20:06)
[2021-03-03 02:05] VITALS: BP 115/80
[2021-03-03] MEDS: ZOLPIDEM TARTRATE 10 MG TABLET PO PRN ×2 (02:24→21:05)
[2021-03-03 08:07] VITALS: BP 109/76
[2021-03-03] MEDS: VENLAFAXINE HCL 37.5 MG TABLET PO SCH (08:07)
[2021-03-03] MEDS: BENZTROPINE MESYLATE 1 MG TABLET PO SCH ×2 (08:07→16:04)
[2021-03-03] MEDS: KETOCONAZOLE 2% 15 GM CREAM TP SCH (08:08)
[2021-03-03 16:11] VITALS: BP 101/74
[2021-03-03] MEDS: PALIPERIDONE 6 MG ER TABLET PO SCH (20:06)
[2021-03-03] MEDS: ClonazePAM 0.5 MG TABLET PO SCH (20:06)
[2021-03-04 01:09] VITALS: BP 110/80
[2021-03-04] MEDS: NICOTINE POLACRILEX 2 MG LOZENGE PO PRN ×4 (06:08→19:06)
[2021-03-04 08:00] VITALS: BP 105/73
[2021-03-04] MEDS: BENZTROPINE MESYLATE 1 MG TABLET PO SCH ×2 (08:11→16:18)
[2021-03-04] MEDS: VENLAFAXINE HCL 37.5 MG TABLET PO SCH (08:12)
[2021-03-04 16:00] VITALS: BP 143/91
[2021-03-04] MEDS: PALIPERIDONE 6 MG ER TABLET PO SCH (20:18)
[2021-03-04] MEDS: ClonazePAM 0.5 MG TABLET PO SCH (20:18)
[2021-03-04] MEDS: ZOLPIDEM TARTRATE 10 MG TABLET PO PRN (21:05)
[2021-03-05 03:33] VITALS: BP 127/68
[2021-03-05] MEDS: NICOTINE POLACRILEX 2 MG LOZENGE PO PRN ×5 (03:40→21:02)
[2021-03-05] MEDS: BENZTROPINE MESYLATE 1 MG TABLET PO SCH ×2 (08:05→16:17)
[2021-03-05] MEDS: KETOCONAZOLE 2% 15 GM CREAM TP SCH (08:05)
[2021-03-05] MEDS: VENLAFAXINE HCL 37.5 MG TABLET PO SCH (08:05)
[2021-03-05 09:08] VITALS: BP 137/88
[2021-03-05 09:36] VITALS: BP 137/88
[2021-03-05 16:54] VITALS: BP 110/70
[2021-03-05] MEDS: PALIPERIDONE 6 MG ER TABLET PO SCH (21:01)
[2021-03-05] MEDS: ZOLPIDEM TARTRATE 10 MG TABLET PO PRN (21:02)
[2021-03-05] MEDS: ClonazePAM 0.5 MG TABLET PO SCH (21:02)
[2021-03-06] MEDS: NICOTINE POLACRILEX 2 MG LOZENGE PO PRN ×4 (01:45→17:16)
[2021-03-06 01:48] VITALS: BP 135/87
[2021-03-06] MEDS: BENZTROPINE MESYLATE 1 MG TABLET PO SCH ×2 (08:09→16:26)
[2021-03-06] MEDS: VENLAFAXINE HCL 37.5 MG TABLET PO SCH (08:09)
[2021-03-06 09:22] VITALS: BP 122/77
[2021-03-06 09:57] LABS: GLUCOMETER DEV NAME(LOC) POC.BV
[2021-03-06 16:46] VITALS: BP 119/84
[2021-03-06] MEDS: PALIPERIDONE 6 MG ER TABLET PO SCH (20:26)
[2021-03-06] MEDS: ClonazePAM 0.5 MG TABLET PO SCH (20:27)
[2021-03-06] MEDS: ZOLPIDEM TARTRATE 10 MG TABLET PO PRN (22:00)
[2021-03-07] MEDS: NICOTINE POLACRILEX 2 MG LOZENGE PO PRN ×4 (03:49→20:51)
[2021-03-07 04:42] VITALS: BP 127/84
[2021-03-07] MEDS: BENZTROPINE MESYLATE 1 MG TABLET PO SCH ×2 (08:13→16:09)
[2021-03-07] MEDS: LORATADINE 10 MG TABLET PO PRN (08:13)
[2021-03-07] MEDS: VENLAFAXINE HCL 37.5 MG TABLET PO SCH (08:13)
[2021-03-07] MEDS: MULTIVITAMINS WITH MINERALS, THERAPEUTIC TABLET PO SCH (08:13)
[2021-03-07] MEDS: KETOCONAZOLE 2% 15 GM CREAM TP SCH (08:14)
[2021-03-07 09:09] VITALS: BP 118/72
[2021-03-07 15:30] VITALS: BP 102/62
[2021-03-07 16:23] VITALS: BP 102/62
[2021-03-07] MEDS: ClonazePAM 0.5 MG TABLET PO SCH (20:51)
[2021-03-07] MEDS: PALIPERIDONE 6 MG ER TABLET PO SCH (20:51)
[2021-03-07] MEDS: ZOLPIDEM TARTRATE 10 MG TABLET PO PRN (21:02)
[2021-03-08 06:41] VITALS: BP 129/80
[2021-03-08] MEDS: NICOTINE POLACRILEX 2 MG LOZENGE PO PRN ×3 (06:51→16:07)
[2021-03-08] MEDS: BENZTROPINE MESYLATE 1 MG TABLET PO SCH ×2 (07:46→16:07)
[2021-03-08] MEDS: VENLAFAXINE HCL 37.5 MG TABLET PO SCH (07:46)
[2021-03-08 08:52] VITALS: BP 128/78
[2021-03-08 09:12] VITALS: BP 128/78
[2021-03-08] MEDS: MULTIVITAMINS WITH MINERALS, THERAPEUTIC TABLET PO SCH (10:54)
[2021-03-08 17:58] VITALS: BP 108/76
[2021-03-08] MEDS: ClonazePAM 0.5 MG TABLET PO SCH (20:16)
[2021-03-08] MEDS: ZOLPIDEM TARTRATE 10 MG TABLET PO PRN (20:16)
[2021-03-08] MEDS: PALIPERIDONE 6 MG ER TABLET PO SCH (20:16)
[2021-03-09 04:30] VITALS: BP 116/73
[2021-03-09] MEDS: NICOTINE POLACRILEX 2 MG LOZENGE PO PRN ×4 (05:59→19:16)
[2021-03-09] MEDS: VENLAFAXINE HCL 37.5 MG TABLET PO SCH (07:54)
[2021-03-09] MEDS: MULTIVITAMINS WITH MINERALS, THERAPEUTIC TABLET PO SCH (07:54)
[2021-03-09] MEDS: BENZTROPINE MESYLATE 1 MG TABLET PO SCH ×2 (07:55→16:30)
[2021-03-09] MEDS: KETOCONAZOLE 2% 15 GM CREAM TP SCH (09:11)
[2021-03-09 09:19] VITALS: BP 118/76
[2021-03-09] MEDS: ACETAMINOPHEN 325 MG TABLET PO PRN (13:44)
[2021-03-09 16:58] VITALS: BP 124/81
[2021-03-09] MEDS: PALIPERIDONE 6 MG ER TABLET PO SCH (20:46)
[2021-03-09] MEDS: ClonazePAM 0.5 MG TABLET PO SCH (20:46)
[2021-03-09] MEDS: ZOLPIDEM TARTRATE 10 MG TABLET PO PRN (20:46)
[2021-03-10] MEDS: NICOTINE POLACRILEX 2 MG LOZENGE PO PRN ×4 (03:30→20:27)
[2021-03-10 04:26] VITALS: BP 116/72
[2021-03-10 08:04] VITALS: BP 111/85
[2021-03-10] MEDS: MULTIVITAMINS WITH MINERALS, THERAPEUTIC TABLET PO SCH (08:38)
[2021-03-10] MEDS: BENZTROPINE MESYLATE 1 MG TABLET PO SCH ×2 (08:38→16:25)
[2021-03-10] MEDS: VENLAFAXINE HCL 37.5 MG TABLET PO SCH (08:38)
[2021-03-10] MEDS: PALIPERIDONE 6 MG ER TABLET PO SCH (20:28)
[2021-03-10] MEDS: ClonazePAM 0.5 MG TABLET PO SCH (20:28)
[2021-03-10] MEDS: ZOLPIDEM TARTRATE 10 MG TABLET PO PRN (20:44)
[2021-03-11] MEDS: NICOTINE POLACRILEX 2 MG LOZENGE PO PRN ×5 (01:37→20:25)
[2021-03-11 04:32] VITALS: BP 118/71
[2021-03-11 08:10] VITALS: BP 101/72
[2021-03-11] MEDS: MULTIVITAMINS WITH MINERALS, THERAPEUTIC TABLET PO SCH (08:27)
[2021-03-11] MEDS: BENZTROPINE MESYLATE 1 MG TABLET PO SCH ×2 (08:27→16:37)
[2021-03-11] MEDS: VENLAFAXINE HCL 37.5 MG TABLET PO SCH (08:28)
[2021-03-11] MEDS: KETOCONAZOLE 2% 15 GM CREAM TP SCH (08:54)
[2021-03-11 16:20] VITALS: BP 113/76
[2021-03-11] MEDS: ClonazePAM 0.5 MG TABLET PO SCH (20:24)
[2021-03-11] MEDS: PALIPERIDONE 6 MG ER TABLET PO SCH (20:24)
[2021-03-11] MEDS: ZOLPIDEM TARTRATE 10 MG TABLET PO PRN (20:39)
[2021-03-12 01:18] VITALS: BP 115/69
[2021-03-12] MEDS: NICOTINE POLACRILEX 2 MG LOZENGE PO PRN ×4 (04:24→18:27)
[2021-03-12] MEDS: VENLAFAXINE HCL 37.5 MG TABLET PO SCH (09:03)
[2021-03-12] MEDS: BENZTROPINE MESYLATE 1 MG TABLET PO SCH ×2 (09:03→16:36)
[2021-03-12] MEDS: MULTIVITAMINS WITH MINERALS, THERAPEUTIC TABLET PO SCH (09:03)
[2021-03-12 13:11] VITALS: BP 110/68
[2021-03-12 16:07] VITALS: BP 108/76
[2021-03-12] MEDS: ClonazePAM 0.5 MG TABLET PO SCH (20:43)
[2021-03-12] MEDS: PALIPERIDONE 6 MG ER TABLET PO SCH (20:43)
[2021-03-12] MEDS: ZOLPIDEM TARTRATE 10 MG TABLET PO PRN (20:43)
[2021-03-13] MEDS: NICOTINE POLACRILEX 2 MG LOZENGE PO PRN ×4 (04:49→17:57)
[2021-03-13 05:05] VITALS: BP 98/70
[2021-03-13] MEDS: VENLAFAXINE HCL 37.5 MG TABLET PO SCH (08:02)
[2021-03-13] MEDS: BENZTROPINE MESYLATE 1 MG TABLET PO SCH ×2 (08:02→16:09)
[2021-03-13 08:13] VITALS: BP 113/78
[2021-03-13 08:16] LABS: GLUCOMETER DEV NAME(LOC) POC.BV
[2021-03-13] MEDS: KETOCONAZOLE 2% 15 GM CREAM TP SCH (09:22)
[2021-03-13] MEDS: MULTIVITAMINS WITH MINERALS, THERAPEUTIC TABLET PO SCH (09:33)
[2021-03-13 16:08] VITALS: BP 133/88
[2021-03-13] MEDS: ClonazePAM 0.5 MG TABLET PO SCH (20:01)
[2021-03-13] MEDS: PALIPERIDONE 6 MG ER TABLET PO SCH (20:01)
[2021-03-13] MEDS: ZOLPIDEM TARTRATE 10 MG TABLET PO PRN (20:01)
[2021-03-14 00:18] VITALS: BP 102/67
[2021-03-14] MEDS: NICOTINE POLACRILEX 2 MG LOZENGE PO PRN ×4 (04:28→20:47)
[2021-03-14] MEDS: BENZTROPINE MESYLATE 1 MG TABLET PO SCH ×2 (08:05→16:30)
[2021-03-14] MEDS: MULTIVITAMINS WITH MINERALS, THERAPEUTIC TABLET PO SCH (08:05)
[2021-03-14] MEDS: VENLAFAXINE HCL 75 MG ER CAPSULE PO SCH (08:06)
[2021-03-14 08:07] VITALS: BP 113/80
[2021-03-14 16:40] VITALS: BP 116/70
[2021-03-14] MEDS: ClonazePAM 0.5 MG TABLET PO SCH (20:12)
[2021-03-14] MEDS: PALIPERIDONE 6 MG ER TABLET PO SCH (20:12)
[2021-03-14] MEDS: ZOLPIDEM TARTRATE 10 MG TABLET PO PRN (21:14)
[2021-03-15] MEDS: NICOTINE POLACRILEX 2 MG LOZENGE PO PRN ×4 (05:37→18:42)
[2021-03-15] MEDS: MULTIVITAMINS WITH MINERALS, THERAPEUTIC TABLET PO SCH (08:10)
[2021-03-15] MEDS: BENZTROPINE MESYLATE 1 MG TABLET PO SCH ×2 (08:10→16:10)
[2021-03-15] MEDS: VENLAFAXINE HCL 75 MG ER CAPSULE PO SCH (08:10)
[2021-03-15 08:47] VITALS: BP 132/88
[2021-03-15] MEDS: KETOCONAZOLE 2% 15 GM CREAM TP SCH (09:08)
[2021-03-15 16:29] VITALS: BP 141/82
[2021-03-15] MEDS: ClonazePAM 0.5 MG TABLET PO SCH (20:31)
[2021-03-15] MEDS: PALIPERIDONE 6 MG ER TABLET PO SCH (20:31)
[2021-03-15] MEDS: ZOLPIDEM TARTRATE 10 MG TABLET PO PRN (20:31)
[2021-03-16 00:10] VITALS: BP 128/80
[2021-03-16] MEDS: NICOTINE POLACRILEX 2 MG LOZENGE PO PRN ×4 (03:39→18:03)
[2021-03-16] MEDS: VENLAFAXINE HCL 75 MG ER CAPSULE PO SCH (08:06)
[2021-03-16] MEDS: MULTIVITAMINS WITH MINERALS, THERAPEUTIC TABLET PO SCH (08:06)
[2021-03-16] MEDS: BENZTROPINE MESYLATE 1 MG TABLET PO SCH ×2 (08:06→16:31)
[2021-03-16 08:33] VITALS: BP 127/83
[2021-03-16 16:24] VITALS: BP 123/84
[2021-03-16] MEDS: PALIPERIDONE 6 MG ER TABLET PO SCH (20:01)
[2021-03-16] MEDS: ClonazePAM 0.5 MG TABLET PO SCH (20:01)
[2021-03-16] MEDS: ZOLPIDEM TARTRATE 10 MG TABLET PO PRN (20:02)
[2021-03-17 04:32] VITALS: BP 138/79
[2021-03-17] MEDS: NICOTINE POLACRILEX 2 MG LOZENGE PO PRN ×4 (04:32→18:43)
[2021-03-17] MEDS: VENLAFAXINE HCL 75 MG ER CAPSULE PO SCH (08:01)
[2021-03-17] MEDS: BENZTROPINE MESYLATE 1 MG TABLET PO SCH ×2 (08:01→16:09)
[2021-03-17] MEDS: MULTIVITAMINS WITH MINERALS, THERAPEUTIC TABLET PO SCH (08:01)
[2021-03-17] MEDS: KETOCONAZOLE 2% 15 GM CREAM TP SCH (08:04)
[2021-03-17 08:56] VITALS: BP 122/83
[2021-03-17 16:00] VITALS: BP 118/77
[2021-03-17] MEDS: PALIPERIDONE 6 MG ER TABLET PO SCH (20:37)
[2021-03-17] MEDS: ClonazePAM 0.5 MG TABLET PO SCH (20:38)
[2021-03-17] MEDS: ZOLPIDEM TARTRATE 10 MG TABLET PO PRN (20:58)
[2021-03-18] MEDS: NICOTINE POLACRILEX 2 MG LOZENGE PO PRN ×5 (04:39→21:04)
[2021-03-18 04:42] VITALS: BP 121/76
[2021-03-18] MEDS: MULTIVITAMINS WITH MINERALS, THERAPEUTIC TABLET PO SCH (08:29)
[2021-03-18] MEDS: VENLAFAXINE HCL 75 MG ER CAPSULE PO SCH (08:29)
[2021-03-18] MEDS: BENZTROPINE MESYLATE 1 MG TABLET PO SCH ×2 (08:29→16:28)
[2021-03-18 08:41] VITALS: BP 114/91
[2021-03-18 16:24] VITALS: BP 130/84
[2021-03-18] MEDS: ZOLPIDEM TARTRATE 10 MG TABLET PO PRN (20:40)
[2021-03-18] MEDS: PALIPERIDONE 6 MG ER TABLET PO SCH (20:40)
[2021-03-18] MEDS: ClonazePAM 0.5 MG TABLET PO SCH (20:40)
[2021-03-19 00:43] VITALS: BP 138/62
[2021-03-19] MEDS: NICOTINE POLACRILEX 2 MG LOZENGE PO PRN ×4 (04:46→18:06)
[2021-03-19] MEDS: MULTIVITAMINS WITH MINERALS, THERAPEUTIC TABLET PO SCH (08:18)
[2021-03-19] MEDS: VENLAFAXINE HCL 75 MG ER CAPSULE PO SCH (08:18)
[2021-03-19] MEDS: BENZTROPINE MESYLATE 1 MG TABLET PO SCH ×2 (08:18→16:36)
[2021-03-19 08:40] VITALS: BP 124/81
[2021-03-19] MEDS: KETOCONAZOLE 2% 15 GM CREAM TP SCH (09:47)
[2021-03-19 16:30] VITALS: BP 142/89
[2021-03-19] MEDS: ClonazePAM 0.5 MG TABLET PO SCH (20:37)
[2021-03-19] MEDS: PALIPERIDONE 6 MG ER TABLET PO SCH (20:37)
[2021-03-19] MEDS: ZOLPIDEM TARTRATE 10 MG TABLET PO PRN (20:50)
[2021-03-20 06:20] VITALS: BP 122/73
[2021-03-20] MEDS: VENLAFAXINE HCL 75 MG ER CAPSULE PO SCH (08:07)
[2021-03-20] MEDS: BENZTROPINE MESYLATE 1 MG TABLET PO SCH ×2 (08:07→17:02)
[2021-03-20] MEDS: MULTIVITAMINS WITH MINERALS, THERAPEUTIC TABLET PO SCH (08:07)
[2021-03-20 08:26] VITALS: BP 131/91
[2021-03-20] MEDS: NICOTINE POLACRILEX 2 MG LOZENGE PO PRN ×3 (09:15→17:30)
[2021-03-20 16:25] VITALS: BP 134/82
[2021-03-20] MEDS: ACETAMINOPHEN 325 MG TABLET PO PRN (19:46)
[2021-03-20] MEDS: ClonazePAM 0.5 MG TABLET PO SCH (20:27)
[2021-03-20] MEDS: PALIPERIDONE 6 MG ER TABLET PO SCH (20:27)
[2021-03-20] MEDS: ZOLPIDEM TARTRATE 10 MG TABLET PO PRN (22:03)
[2021-03-21] MEDS: NICOTINE POLACRILEX 2 MG LOZENGE PO PRN ×5 (05:19→23:27)
[2021-03-21 05:31] VITALS: BP 124/62
[2021-03-21 07:59] LABS: COVID AG,FIA SOURCE NASOPHARYNGEAL
[2021-03-21] MEDS: MULTIVITAMINS WITH MINERALS, THERAPEUTIC TABLET PO SCH (08:24)
[2021-03-21] MEDS: KETOCONAZOLE 2% 15 GM CREAM TP SCH (08:24)
[2021-03-21] MEDS: VENLAFAXINE HCL 75 MG ER CAPSULE PO SCH (08:24)
[2021-03-21] MEDS: BENZTROPINE MESYLATE 1 MG TABLET PO SCH ×2 (08:24→16:55)
[2021-03-21 08:33] VITALS: BP 115/78
[2021-03-21 16:28] VITALS: BP 143/80
[2021-03-21] MEDS: ClonazePAM 0.5 MG TABLET PO SCH (21:12)
[2021-03-21] MEDS: PALIPERIDONE 6 MG ER TABLET PO SCH (21:12)
[2021-03-22] MEDS: ZOLPIDEM TARTRATE 10 MG TABLET PO PRN (02:03)
[2021-03-22] MEDS: NICOTINE POLACRILEX 2 MG LOZENGE PO PRN ×4 (04:36→18:03)
[2021-03-22 05:37] VITALS: BP 132/83
[2021-03-22] MEDS: VENLAFAXINE HCL 75 MG ER CAPSULE PO SCH (08:12)
[2021-03-22] MEDS: BENZTROPINE MESYLATE 1 MG TABLET PO SCH ×2 (08:12→16:05)
[2021-03-22] MEDS: MULTIVITAMINS WITH MINERALS, THERAPEUTIC TABLET PO SCH (08:12)
[2021-03-22 08:22] VITALS: BP 109/74
[2021-03-22 16:10] VITALS: BP 109/76
[2021-03-22] MEDS: ACETAMINOPHEN 325 MG TABLET PO PRN (19:28)
[2021-03-22] MEDS: PALIPERIDONE 6 MG ER TABLET PO SCH (20:22)
[2021-03-22] MEDS: ClonazePAM 0.5 MG TABLET PO SCH (20:22)
[2021-03-23 00:12] VITALS: BP 112/73
[2021-03-23] MEDS: NICOTINE POLACRILEX 2 MG LOZENGE PO PRN ×3 (05:37→17:30)
[2021-03-23 08:09] VITALS: BP 121/92
[2021-03-23] MEDS: VENLAFAXINE HCL 75 MG ER CAPSULE PO SCH (08:48)
[2021-03-23] MEDS: BENZTROPINE MESYLATE 1 MG TABLET PO SCH ×2 (08:48→16:11)
[2021-03-23] MEDS: MULTIVITAMINS WITH MINERALS, THERAPEUTIC TABLET PO SCH (08:49)
[2021-03-23] MEDS: KETOCONAZOLE 2% 15 GM CREAM TP SCH (09:00)
[2021-03-23] MEDS: ACETAMINOPHEN 325 MG TABLET PO PRN ×2 (10:24→20:22)
[2021-03-23 16:11] VITALS: BP 109/62
[2021-03-23] MEDS: PALIPERIDONE 6 MG ER TABLET PO SCH (20:22)
[2021-03-23] MEDS: ClonazePAM 0.5 MG TABLET PO SCH (20:22)
[2021-03-24] MEDS: NICOTINE POLACRILEX 2 MG LOZENGE PO PRN ×4 (05:35→16:19)
[2021-03-24 05:49] VITALS: BP 113/89
[2021-03-24] MEDS: MULTIVITAMINS WITH MINERALS, THERAPEUTIC TABLET PO SCH (08:01)
[2021-03-24] MEDS: BENZTROPINE MESYLATE 1 MG TABLET PO SCH ×2 (08:02→16:19)
[2021-03-24] MEDS: VENLAFAXINE HCL 75 MG ER CAPSULE PO SCH (08:02)
[2021-03-24 08:21] VITALS: BP 116/82
[2021-03-24 16:11] VITALS: BP 115/81
[2021-03-24] MEDS: ClonazePAM 0.5 MG TABLET PO SCH (20:48)
[2021-03-24] MEDS: PALIPERIDONE 6 MG ER TABLET PO SCH (20:48)
[2021-03-24] MEDS: ZOLPIDEM TARTRATE 10 MG TABLET PO PRN (21:17)
[2021-03-25 04:35] VITALS: BP 109/88
[2021-03-25] MEDS: NICOTINE POLACRILEX 2 MG LOZENGE PO PRN ×4 (04:57→18:17)
[2021-03-25 05:16] LABS: GLUCOMETER DEV NAME(LOC) BV2S.; GLUCOSE,POINT OF CARE 133 MG/DL (70-110)
[2021-03-25] MEDS: MULTIVITAMINS WITH MINERALS, THERAPEUTIC TABLET PO SCH (08:04)
[2021-03-25] MEDS: KETOCONAZOLE 2% 15 GM CREAM TP SCH (08:05)
[2021-03-25] MEDS: VENLAFAXINE HCL 75 MG ER CAPSULE PO SCH (08:05)
[2021-03-25] MEDS: BENZTROPINE MESYLATE 1 MG TABLET PO SCH ×2 (08:05→17:22)
[2021-03-25 08:18] VITALS: BP 122/78
[2021-03-25 16:33] VITALS: BP 141/97
[2021-03-25] MEDS: ACETAMINOPHEN 325 MG TABLET PO PRN (18:17)
[2021-03-25] MEDS: PALIPERIDONE 6 MG ER TABLET PO SCH (20:32)
[2021-03-25] MEDS: ZOLPIDEM TARTRATE 10 MG TABLET PO PRN (20:33)
[2021-03-25] MEDS: ClonazePAM 0.5 MG TABLET PO SCH (20:33)
[2021-03-26] MEDS: NICOTINE POLACRILEX 2 MG LOZENGE PO PRN ×3 (04:23→18:04)
[2021-03-26 04:47] VITALS: BP 111/69
[2021-03-26] MEDS: VENLAFAXINE HCL 75 MG ER CAPSULE PO SCH (08:43)
[2021-03-26] MEDS: BENZTROPINE MESYLATE 1 MG TABLET PO SCH ×2 (08:43→16:33)
[2021-03-26] MEDS: MULTIVITAMINS WITH MINERALS, THERAPEUTIC TABLET PO SCH (08:43)
[2021-03-26] MEDS: PALIPERIDONE PALMITATE 156 MG/ML SYRINGE IM SCH (09:56)
[2021-03-26 12:03] VITALS: BP 122/77
[2021-03-26 16:37] VITALS: BP 136/92
[2021-03-26] MEDS: ZOLPIDEM TARTRATE 10 MG TABLET PO PRN (20:43)
[2021-03-26] MEDS: ClonazePAM 0.5 MG TABLET PO SCH (20:43)
[2021-03-26] MEDS: PALIPERIDONE 6 MG ER TABLET PO SCH (20:43)
[2021-03-27 00:51] VITALS: BP 119/75
[2021-03-27] MEDS: NICOTINE POLACRILEX 2 MG LOZENGE PO PRN ×4 (04:49→18:40)
[2021-03-27] MEDS: MULTIVITAMINS WITH MINERALS, THERAPEUTIC TABLET PO SCH (08:01)
[2021-03-27] MEDS: BENZTROPINE MESYLATE 1 MG TABLET PO SCH ×2 (08:01→16:28)
[2021-03-27] MEDS: VENLAFAXINE HCL 75 MG ER CAPSULE PO SCH (08:01)
[2021-03-27 09:27] VITALS: BP 109/75
[2021-03-27] MEDS: KETOCONAZOLE 2% 15 GM CREAM TP SCH (09:34)
[2021-03-27 13:11] LABS: GLUCOMETER DEV NAME(LOC) POC.BV
[2021-03-27 16:21] VITALS: BP 122/88
[2021-03-27] MEDS: ClonazePAM 0.5 MG TABLET PO SCH (20:11)
[2021-03-27] MEDS: PALIPERIDONE 6 MG ER TABLET PO SCH (20:11)
[2021-03-27] MEDS: ZOLPIDEM TARTRATE 10 MG TABLET PO PRN (20:16)
[2021-03-28 00:37] VITALS: BP 118/79
[2021-03-28] MEDS: NICOTINE POLACRILEX 2 MG LOZENGE PO PRN ×4 (04:04→17:15)
[2021-03-28] MEDS: VENLAFAXINE HCL 75 MG ER CAPSULE PO SCH (08:09)
[2021-03-28] MEDS: MULTIVITAMINS WITH MINERALS, THERAPEUTIC TABLET PO SCH (08:09)
[2021-03-28] MEDS: BENZTROPINE MESYLATE 1 MG TABLET PO SCH ×2 (08:10→16:04)
[2021-03-28 09:19] VITALS: BP 121/76
[2021-03-28 16:22] VITALS: BP 123/95
[2021-03-28] MEDS: PALIPERIDONE 6 MG ER TABLET PO SCH (20:09)
[2021-03-28] MEDS: ClonazePAM 0.5 MG TABLET PO SCH (20:09)
[2021-03-28] MEDS: ZOLPIDEM TARTRATE 10 MG TABLET PO PRN (21:05)
[2021-03-29 04:47] VITALS: BP 111/83
[2021-03-29] MEDS: NICOTINE POLACRILEX 2 MG LOZENGE PO PRN ×4 (04:52→17:35)
[2021-03-29] MEDS: BENZTROPINE MESYLATE 1 MG TABLET PO SCH ×2 (08:11→16:32)
[2021-03-29] MEDS: VENLAFAXINE HCL 75 MG ER CAPSULE PO SCH (08:11)
[2021-03-29] MEDS: MULTIVITAMINS WITH MINERALS, THERAPEUTIC TABLET PO SCH (08:11)
[2021-03-29] MEDS: KETOCONAZOLE 2% 15 GM CREAM TP SCH (08:13)
[2021-03-29 10:03] VITALS: BP 135/82
[2021-03-29 16:27] VITALS: BP 127/91
[2021-03-29] MEDS: PALIPERIDONE 6 MG ER TABLET PO SCH (20:07)
[2021-03-29] MEDS: ClonazePAM 0.5 MG TABLET PO SCH (20:07)
[2021-03-29] MEDS: ZOLPIDEM TARTRATE 10 MG TABLET PO PRN (21:35)
[2021-03-30 01:12] VITALS: BP 112/79
[2021-03-30] MEDS: MULTIVITAMINS WITH MINERALS, THERAPEUTIC TABLET PO SCH (08:00)
[2021-03-30] MEDS: BENZTROPINE MESYLATE 1 MG TABLET PO SCH ×2 (08:00→16:04)
[2021-03-30] MEDS: VENLAFAXINE HCL 75 MG ER CAPSULE PO SCH (08:00)
[2021-03-30 08:34] VITALS: BP 126/82
[2021-03-30] MEDS: ACETAMINOPHEN 325 MG TABLET PO PRN (09:19)
[2021-03-30] MEDS: NICOTINE POLACRILEX 2 MG LOZENGE PO PRN ×3 (09:19→18:02)
[2021-03-30] MEDS: BENZOCAINE 10% 7 GM GEL TP PRN (15:51)
[2021-03-30 16:30] VITALS: BP 107/65
[2021-03-30] MEDS: PALIPERIDONE 6 MG ER TABLET PO SCH (20:09)
[2021-03-30] MEDS: ClonazePAM 0.5 MG TABLET PO SCH (20:09)
[2021-03-30] MEDS: ZOLPIDEM TARTRATE 10 MG TABLET PO PRN (20:09)
[2021-03-31 05:18] VITALS: BP 113/71
[2021-03-31] MEDS: NICOTINE POLACRILEX 2 MG LOZENGE PO PRN ×4 (05:22→20:16)
[2021-03-31] MEDS: VENLAFAXINE HCL 75 MG ER CAPSULE PO SCH (08:03)
[2021-03-31] MEDS: BENZTROPINE MESYLATE 1 MG TABLET PO SCH ×2 (08:03→16:01)
[2021-03-31] MEDS: MULTIVITAMINS WITH MINERALS, THERAPEUTIC TABLET PO SCH (08:04)
[2021-03-31] MEDS: KETOCONAZOLE 2% 15 GM CREAM TP SCH (08:06)
[2021-03-31 08:18] VITALS: BP 111/72
[2021-03-31] MEDS: ClonazePAM 0.5 MG TABLET PO SCH (20:15)
[2021-03-31] MEDS: PALIPERIDONE 6 MG ER TABLET PO SCH (20:15)
[2021-03-31] MEDS: ZOLPIDEM TARTRATE 10 MG TABLET PO PRN (20:16)
[2021-04-01 05:00] VITALS: BP 109/73
[2021-04-01] MEDS: NICOTINE POLACRILEX 2 MG LOZENGE PO PRN ×4 (05:07→19:23)
[2021-04-01 08:11] VITALS: BP 107/66
[2021-04-01] MEDS: VENLAFAXINE HCL 75 MG ER CAPSULE PO SCH (08:14)
[2021-04-01] MEDS: MULTIVITAMINS WITH MINERALS, THERAPEUTIC TABLET PO SCH (08:14)
[2021-04-01] MEDS: BENZTROPINE MESYLATE 1 MG TABLET PO SCH ×2 (08:15→16:33)
[2021-04-01 16:22] VITALS: BP 101/72
[2021-04-01] MEDS: PALIPERIDONE 6 MG ER TABLET PO SCH (20:30)
[2021-04-01] MEDS: ClonazePAM 0.5 MG TABLET PO SCH (20:31)
[2021-04-01] MEDS: ZOLPIDEM TARTRATE 10 MG TABLET PO PRN (20:45)
[2021-04-02 05:53] VITALS: BP 102/74
[2021-04-02] MEDS: NICOTINE POLACRILEX 2 MG LOZENGE PO PRN ×4 (05:57→20:12)
[2021-04-02] MEDS: BENZTROPINE MESYLATE 1 MG TABLET PO SCH ×2 (07:57→16:31)
[2021-04-02] MEDS: MULTIVITAMINS WITH MINERALS, THERAPEUTIC TABLET PO SCH (07:57)
[2021-04-02] MEDS: VENLAFAXINE HCL 75 MG ER CAPSULE PO SCH (07:57)
[2021-04-02 08:16] VITALS: BP 124/85
[2021-04-02] MEDS: KETOCONAZOLE 2% 15 GM CREAM TP SCH (09:15)
[2021-04-02 16:19] VITALS: BP 130/83
[2021-04-02] MEDS: ClonazePAM 0.5 MG TABLET PO SCH (20:39)
[2021-04-02] MEDS: ZOLPIDEM TARTRATE 10 MG TABLET PO PRN (20:39)
[2021-04-02] MEDS: PALIPERIDONE 6 MG ER TABLET PO SCH (20:39)
[2021-04-02] MEDS ORDERED: COVID-19 VACCINE, MRNA(PFIZER)/PF 30 MCG/0.3 ML VIAL IM. ONE (21:30)
[2021-04-03] MEDS: NICOTINE POLACRILEX 2 MG LOZENGE PO PRN ×4 (06:41→18:59)
[2021-04-03 08:19] VITALS: BP 118/75
[2021-04-03] MEDS: BENZTROPINE MESYLATE 1 MG TABLET PO SCH ×2 (09:25→16:31)
[2021-04-03] MEDS: MULTIVITAMINS WITH MINERALS, THERAPEUTIC TABLET PO SCH (09:25)
[2021-04-03] MEDS: VENLAFAXINE HCL 75 MG ER CAPSULE PO SCH (09:25)
[2021-04-03 09:51] LABS: GLUCOMETER DEV NAME(LOC) POC.BV
[2021-04-03] MEDS ORDERED: TUBERCULIN, PURIFIED PROTEIN DERIVATIVE 5 TU/0.1 ML SYRINGE ID ONE (15:15)
[2021-04-03 16:18] VITALS: BP 131/86
[2021-04-03] MEDS: PALIPERIDONE 6 MG ER TABLET PO SCH (20:49)
[2021-04-03] MEDS: ClonazePAM 0.5 MG TABLET PO SCH (20:49)
[2021-04-03] MEDS: ZOLPIDEM TARTRATE 10 MG TABLET PO PRN (20:49)
[2021-04-04 00:42] VITALS: BP 127/82
[2021-04-04] MEDS: NICOTINE POLACRILEX 2 MG LOZENGE PO PRN ×4 (05:34→18:10)
[2021-04-04] MEDS: BENZTROPINE MESYLATE 1 MG TABLET PO SCH ×2 (09:02→16:18)
[2021-04-04] MEDS: VENLAFAXINE HCL 75 MG ER CAPSULE PO SCH (09:02)
[2021-04-04] MEDS: MULTIVITAMINS WITH MINERALS, THERAPEUTIC TABLET PO SCH (09:02)
[2021-04-04] MEDS: KETOCONAZOLE 2% 15 GM CREAM TP SCH (09:37)
[2021-04-04 09:43] VITALS: BP 116/69
[2021-04-04 16:09] VITALS: BP 114/76
[2021-04-04] MEDS: ClonazePAM 0.5 MG TABLET PO SCH (20:03)
[2021-04-04] MEDS: PALIPERIDONE 6 MG ER TABLET PO SCH (20:03)
[2021-04-04] MEDS: ZOLPIDEM TARTRATE 10 MG TABLET PO PRN (20:03)
[2021-04-04 20:35] VITALS: BP 138/90
[2021-04-04] MEDS: IBUPROFEN 600 MG TABLET PO PRN (20:35)
[2021-04-05] MEDS: VENLAFAXINE HCL 75 MG ER CAPSULE PO SCH (08:04)
[2021-04-05] MEDS: BENZTROPINE MESYLATE 1 MG TABLET PO SCH ×2 (08:04→16:11)
[2021-04-05] MEDS: NICOTINE POLACRILEX 2 MG LOZENGE PO PRN ×3 (08:04→20:33)
[2021-04-05] MEDS: MULTIVITAMINS WITH MINERALS, THERAPEUTIC TABLET PO SCH (08:04)
[2021-04-05 08:27] VITALS: BP 103/61
[2021-04-05 16:20] VITALS: BP 106/77
[2021-04-05] MEDS: ZOLPIDEM TARTRATE 10 MG TABLET PO PRN (20:01)
[2021-04-05] MEDS: ClonazePAM 0.5 MG TABLET PO SCH (20:01)
[2021-04-05] MEDS: PALIPERIDONE 6 MG ER TABLET PO SCH (20:01)
[2021-04-06 01:15] VITALS: BP 102/63
[2021-04-06] MEDS: NICOTINE POLACRILEX 2 MG LOZENGE PO PRN ×4 (06:53→20:03)
[2021-04-06] MEDS: MULTIVITAMINS WITH MINERALS, THERAPEUTIC TABLET PO SCH (08:02)
[2021-04-06] MEDS: BENZTROPINE MESYLATE 1 MG TABLET PO SCH ×2 (08:02→16:35)
[2021-04-06] MEDS: VENLAFAXINE HCL 75 MG ER CAPSULE PO SCH (08:02)
[2021-04-06] MEDS: KETOCONAZOLE 2% 15 GM CREAM TP SCH (08:03)
[2021-04-06 09:04] VITALS: BP 123/75
[2021-04-06 16:18] VITALS: BP 119/72
[2021-04-06] MEDS: ClonazePAM 0.5 MG TABLET PO SCH (20:03)
[2021-04-06] MEDS: PALIPERIDONE 6 MG ER TABLET PO SCH (20:03)
[2021-04-06] MEDS: ZOLPIDEM TARTRATE 10 MG TABLET PO PRN (21:03)
[2021-04-07] MEDS: NICOTINE POLACRILEX 2 MG LOZENGE PO PRN ×4 (05:32→18:46)
[2021-04-07 05:45] VITALS: BP 103/67
[2021-04-07] MEDS: MULTIVITAMINS WITH MINERALS, THERAPEUTIC TABLET PO SCH (08:07)
[2021-04-07] MEDS: BENZTROPINE MESYLATE 1 MG TABLET PO SCH ×2 (08:07→16:34)
[2021-04-07] MEDS: VENLAFAXINE HCL 75 MG ER CAPSULE PO SCH (08:07)
[2021-04-07 08:40] VITALS: BP 116/78
[2021-04-07 09:01] LABS: GLUCOMETER DEV NAME(LOC) POC.BV
[2021-04-07 10:15] VITALS: BP 116/78
[2021-04-07] MEDS: ONDANSETRON HCL 4 MG TABLET PO PRN (11:22)
[2021-04-07 16:10] VITALS: BP 118/75
[2021-04-07] MEDS: ClonazePAM 0.5 MG TABLET PO SCH (20:41)
[2021-04-07] MEDS: PALIPERIDONE 6 MG ER TABLET PO SCH (20:41)
[2021-04-07] MEDS: ZOLPIDEM TARTRATE 10 MG TABLET PO PRN (20:41)
[2021-04-08 04:57] VITALS: BP 123/78
[2021-04-08] MEDS: NICOTINE POLACRILEX 2 MG LOZENGE PO PRN ×5 (05:00→23:48)
[2021-04-08] MEDS: BENZTROPINE MESYLATE 1 MG TABLET PO SCH ×2 (08:00→16:19)
[2021-04-08] MEDS: VENLAFAXINE HCL 75 MG ER CAPSULE PO SCH (08:00)
[2021-04-08] MEDS: MULTIVITAMINS WITH MINERALS, THERAPEUTIC TABLET PO SCH (08:00)
[2021-04-08] MEDS: KETOCONAZOLE 2% 15 GM CREAM TP SCH (08:03)
[2021-04-08 08:31] VITALS: BP 110/70
[2021-04-08] MEDS: IBUPROFEN 600 MG TABLET PO PRN (09:48)
[2021-04-08 16:31] VITALS: BP 128/82
[2021-04-08] MEDS: PALIPERIDONE 6 MG ER TABLET PO SCH (20:16)
[2021-04-08] MEDS: ClonazePAM 0.5 MG TABLET PO SCH (20:16)
[2021-04-08] MEDS: ZOLPIDEM TARTRATE 10 MG TABLET PO PRN (20:16)
[2021-04-09] VITALS: BP 105/65
[2021-04-09] MEDS: NICOTINE POLACRILEX 2 MG LOZENGE PO PRN ×4 (06:09→18:15)
[2021-04-09] MEDS: MULTIVITAMINS WITH MINERALS, THERAPEUTIC TABLET PO SCH (08:03)
[2021-04-09] MEDS: VENLAFAXINE HCL 75 MG ER CAPSULE PO SCH (08:03)
[2021-04-09] MEDS: BENZTROPINE MESYLATE 1 MG TABLET PO SCH ×2 (08:03→16:05)
[2021-04-09 08:24] VITALS: BP 105/75
[2021-04-09 16:14] VITALS: BP 127/84
[2021-04-09] MEDS: ClonazePAM 0.5 MG TABLET PO SCH (20:04)
[2021-04-09] MEDS: PALIPERIDONE 6 MG ER TABLET PO SCH (20:04)
[2021-04-09] MEDS: ZOLPIDEM TARTRATE 10 MG TABLET PO PRN (22:01)
[2021-04-10 00:40] VITALS: BP 130/82
[2021-04-10] MEDS: NICOTINE POLACRILEX 2 MG LOZENGE PO PRN ×4 (05:12→19:14)
[2021-04-10] MEDS: BENZTROPINE MESYLATE 1 MG TABLET PO SCH ×2 (08:28→16:16)
[2021-04-10] MEDS: VENLAFAXINE HCL 75 MG ER CAPSULE PO SCH (08:28)
[2021-04-10] MEDS: MULTIVITAMINS WITH MINERALS, THERAPEUTIC TABLET PO SCH (08:28)
[2021-04-10 08:40] VITALS: BP 112/77
[2021-04-10] MEDS: KETOCONAZOLE 2% 15 GM CREAM TP SCH (09:44)
[2021-04-10 16:31] VITALS: BP 122/83
[2021-04-10] MEDS: ClonazePAM 0.5 MG TABLET PO SCH (20:13)
[2021-04-10] MEDS: PALIPERIDONE 6 MG ER TABLET PO SCH (20:13)
[2021-04-10] MEDS: ZOLPIDEM TARTRATE 10 MG TABLET PO PRN (20:15)
[2021-04-10] MEDS: IBUPROFEN 600 MG TABLET PO PRN (20:39)
[2021-04-11 00:38] VITALS: BP 103/72
[2021-04-11] MEDS: NICOTINE POLACRILEX 2 MG LOZENGE PO PRN ×4 (00:40→17:50)
[2021-04-11] MEDS: MULTIVITAMINS WITH MINERALS, THERAPEUTIC TABLET PO SCH (08:11)
[2021-04-11] MEDS: BENZTROPINE MESYLATE 1 MG TABLET PO SCH ×2 (08:11→16:00)
[2021-04-11] MEDS: VENLAFAXINE HCL 75 MG ER CAPSULE PO SCH (08:12)
[2021-04-11 08:20] VITALS: BP 118/74
[2021-04-11] MEDS: IBUPROFEN 600 MG TABLET PO PRN (15:03)
[2021-04-11] MEDS: ONDANSETRON HCL 4 MG TABLET PO PRN (15:04)
[2021-04-11 16:18] VITALS: BP 104/70
[2021-04-11] MEDS: ClonazePAM 0.5 MG TABLET PO SCH (20:10)
[2021-04-11] MEDS: PALIPERIDONE 6 MG ER TABLET PO SCH (20:10)
[2021-04-11] MEDS: ZOLPIDEM TARTRATE 10 MG TABLET PO PRN (21:02)
[2021-04-12 00:19] VITALS: BP 129/73
[2021-04-12 08:21] VITALS: BP 129/89
[2021-04-12] MEDS: BENZTROPINE MESYLATE 1 MG TABLET PO SCH ×2 (08:35→16:34)
[2021-04-12] MEDS: VENLAFAXINE HCL 75 MG ER CAPSULE PO SCH (08:35)
[2021-04-12] MEDS: MULTIVITAMINS WITH MINERALS, THERAPEUTIC TABLET PO SCH (08:35)
[2021-04-12] MEDS: KETOCONAZOLE 2% 15 GM CREAM TP SCH (09:09)
[2021-04-12] MEDS: NICOTINE POLACRILEX 2 MG LOZENGE PO PRN ×3 (09:09→17:28)
[2021-04-12] MEDS: IBUPROFEN 600 MG TABLET PO PRN (10:09)
[2021-04-12 16:20] VITALS: BP 139/84
[2021-04-12] MEDS: ACETAMINOPHEN 325 MG TABLET PO PRN (16:34)
[2021-04-12] MEDS: ONDANSETRON HCL 4 MG TABLET PO PRN (18:40)
[2021-04-12] MEDS: ZOLPIDEM TARTRATE 10 MG TABLET PO PRN (20:06)
[2021-04-12] MEDS: ClonazePAM 0.5 MG TABLET PO SCH (20:06)
[2021-04-12] MEDS: PALIPERIDONE 6 MG ER TABLET PO SCH (20:06)
[2021-04-13 01:15] VITALS: BP 123/78
[2021-04-13] MEDS: BENZTROPINE MESYLATE 1 MG TABLET PO SCH ×2 (08:35→16:09)
[2021-04-13] MEDS: MULTIVITAMINS WITH MINERALS, THERAPEUTIC TABLET PO SCH (08:35)
[2021-04-13] MEDS: VENLAFAXINE HCL 75 MG ER CAPSULE PO SCH (08:35)
[2021-04-13] MEDS: NICOTINE POLACRILEX 2 MG LOZENGE PO PRN ×3 (08:54→17:25)
[2021-04-13] MEDS: IBUPROFEN 600 MG TABLET PO PRN (09:31)
[2021-04-13 16:11] VITALS: BP 135/84
[2021-04-13] MEDS: PALIPERIDONE 6 MG ER TABLET PO SCH (20:15)
[2021-04-13] MEDS: ClonazePAM 0.5 MG TABLET PO SCH (20:15)
[2021-04-14 07:00] VITALS: BP 106/72
[2021-04-14] MEDS: VENLAFAXINE HCL 75 MG ER CAPSULE PO SCH (08:00)
[2021-04-14] MEDS: MULTIVITAMINS WITH MINERALS, THERAPEUTIC TABLET PO SCH (08:00)
[2021-04-14] MEDS: NICOTINE POLACRILEX 2 MG LOZENGE PO PRN ×3 (08:01→17:59)
[2021-04-14] MEDS: BENZTROPINE MESYLATE 1 MG TABLET PO SCH ×2 (08:01→16:14)
[2021-04-14] MEDS: KETOCONAZOLE 2% 15 GM CREAM TP SCH (08:02)
[2021-04-14 08:25] VITALS: BP 97/59
[2021-04-14 14:52] LABS: GLUCOMETER DEV NAME(LOC) POC.BV
[2021-04-14 16:21] VITALS: BP 109/72
[2021-04-14] MEDS: PALIPERIDONE 6 MG ER TABLET PO SCH (20:04)
[2021-04-14] MEDS: ClonazePAM 0.5 MG TABLET PO SCH (20:04)
[2021-04-14] MEDS: ZOLPIDEM TARTRATE 10 MG TABLET PO PRN (21:01)
[2021-04-15 05:47] VITALS: BP 104/62
[2021-04-15 08:23] VITALS: BP 96/77
[2021-04-15 08:41] LABS: GLUCOMETER DEV NAME(LOC) POC.BV
[2021-04-15] MEDS: MULTIVITAMINS WITH MINERALS, THERAPEUTIC TABLET PO SCH (08:44)
[2021-04-15] MEDS: NICOTINE POLACRILEX 2 MG LOZENGE PO PRN ×3 (08:44→17:09)
[2021-04-15] MEDS: BENZTROPINE MESYLATE 1 MG TABLET PO SCH ×2 (08:44→16:34)
[2021-04-15] MEDS: VENLAFAXINE HCL 75 MG ER CAPSULE PO SCH (08:44)
[2021-04-15] MEDS ORDERED: PALI156D IM (10:25)
[2021-04-15] MEDS ORDERED: PALI6TAB15 PO (10:25)
[2021-04-15] MEDS ORDERED: VENL-67 PO (10:25)
[2021-04-15] MEDS ORDERED: CLON-592 PO (10:25)
[2021-04-15 16:27] VITALS: BP 109/75
[2021-04-15] MEDS: PALIPERIDONE 6 MG ER TABLET PO SCH (20:36)
[2021-04-15] MEDS: ClonazePAM 0.5 MG TABLET PO SCH (20:36)
[2021-04-15] MEDS: ZOLPIDEM TARTRATE 10 MG TABLET PO PRN (21:12)
[2021-04-16 02:04] VITALS: BP 123/77
[2021-04-16 08:37] VITALS: BP 106/80
[2021-04-16] MEDS: MULTIVITAMINS WITH MINERALS, THERAPEUTIC TABLET PO SCH (08:49)
[2021-04-16] MEDS: BENZTROPINE MESYLATE 1 MG TABLET PO SCH (08:49)
[2021-04-16] MEDS: VENLAFAXINE HCL 75 MG ER CAPSULE PO SCH (08:49)
[2021-04-16] MEDS: KETOCONAZOLE 2% 15 GM CREAM TP SCH (08:50)
[2021-04-16] MEDS: NICOTINE POLACRILEX 2 MG LOZENGE PO PRN (10:12)
== END 2021-04-16 12:19 | DRG 885 ==
LOC: EMS 10:08 → B2X 01-29 03:19 → B2S 01-29 09:46
PROVIDERS: ADMIT Psychiatry & Neurology Psychiatry; ATTEND Psychiatry & Neurology Psychiatry
PROC: XW023U6 Introduction of COVID-19 Vaccine into Muscle, Percutaneous Approach, New Technology Group 6 (ICD-10-PCS; principal; 2021-04-02)
DX: F20.9 Schizophrenia, unspecified (principal); E11.65 Type 2 diabetes mellitus with hyperglycemia; R45.851 Suicidal ideations; F31.9 Bipolar disorder, unspecified; F41.9 Anxiety disorder, unspecified; K08.89 Other specified disorders of teeth and supporting structures; F91.9 Conduct disorder, unspecified; G47.00 Insomnia, unspecified; K21.9 Gastro-esophageal reflux disease without esophagitis; L30.9 Dermatitis, unspecified; F15.10 Other stimulant abuse, uncomplicated; K59.00 Constipation, unspecified; E78.5 Hyperlipidemia, unspecified; F17.200 Nicotine dependence, unspecified, uncomplicated; Z20.822 Contact with and (suspected) exposure to COVID-19; Z28.21 Immunization not carried out because of patient refusal; Z91.010 Allergy to peanuts; Z91.018 Allergy to other foods; Z71.51 Drug abuse counseling and surveillance of drug abuser; Z71.6 Tobacco abuse counseling; Z79.84 Long term (current) use of oral hypoglycemic drugs; Z23 Encounter for immunization
CPT/HCPCS: 0004A; 71046; 80048; 80053; 80061; 82962; 83036; 83735; 84100; 84443; 85007; 85025; 85027; 87081; 91300; 99285; G0480; Q0162; Q9967; 36415-L1; 36415-TC; C9803

== ENCOUNTER 2022-09-01 18:52 | Inpatient (IN) | payer MEDICARE, MEDICAID ==
[~2022-09-01] VITALS: Ht 172.7 cm; Wt 72.3 kg
[~2022-09-01 18:52] MED LIST changes: -BENZ1TAB10 PO; +BENZ1TAB84 PO; +DIVA-112 PO; +FLUO20CA36 PO; -HYDR-4808 PO; +OLAN5TAB52 PO; -PALI9TAB15 PO
[2022-09-01] MEDS ORDERED: LISD40CA PO (20:35)
[2022-09-01] MEDS ORDERED: MIRT-92 PO (20:35)
[2022-09-01 21:15] VITALS: BP 96/66; PULSE 71; RESP 17; TEMP 97.5; O2SAT 98
[2022-09-01 22:13] VITALS: BP 96/66; PULSE 71; RESP 17; TEMP 97.5; O2SAT 98
[2022-09-01] MEDS: HALOPERIDOL 5 MG TABLET PO PRN (23:32)
[2022-09-02] MEDS ORDERED: MAGNESIUM HYDROXIDE SUSPENSION 30 ML UDCUP PO PRN (05:30)
[2022-09-02] MEDS ORDERED: IBUPROFEN 600 MG TABLET PO PRN (05:30)
[2022-09-02] MEDS ORDERED: ALBUTEROL SULFATE HFA 90 MCG/PUFF 8 GM INHALER IH PRN (05:30)
[2022-09-02] MEDS ORDERED: BACITRACIN 28 GM OINTMENT TP PRN (05:30)
[2022-09-02] MEDS ORDERED: DOCUSATE SODIUM 100 MG CAPSULE PO PRN (05:30)
[2022-09-02] MEDS ORDERED: OMEPRAZOLE 20 MG CAPSULE PO PRN (05:30)
[2022-09-02] MEDS ORDERED: LOPERAMIDE HCL 2 MG CAPSULE PO PRN (05:30)
[2022-09-02] MEDS ORDERED: ONDANSETRON HCL 4 MG TABLET PO PRN (05:30)
[2022-09-02] MEDS ORDERED: NICOTINE POLACRILEX 4 MG LOZENGE PO PRN (05:30)
[2022-09-02] MEDS ORDERED: MAG HYDROX/AL HYDROX/SIMETH ES 30 ML SUSPENSION UDCUP PO PRN (05:30)
[2022-09-02] MEDS ORDERED: ACETAMINOPHEN 325 MG TABLET PO PRN (05:30)
[2022-09-02] MEDS ORDERED: PETROLATUM,WHITE 28 GM JELLY TP PRN (05:30)
[2022-09-02] MEDS ORDERED: CloNIDine HCL 0.1 MG TABLET PO PRN (05:30)
[2022-09-02 08:21] LABS: CHOL/HDL RATIO 4.2 (4.2-7.3)
[2022-09-02 08:29] LABS: HEMOGLOBIN A1C 5.5 % (3.8-5.6)
[2022-09-02 08:49] VITALS: BP 102/74; PULSE 103; RESP 18; TEMP 98.6; O2SAT 97
[2022-09-02] MEDS: FLUoxetine HCL 20 MG CAPSULE PO SCH (11:57)
[2022-09-02] MEDS: LORazepam 2 MG TABLET PO PRN (16:57)
[2022-09-02] MEDS: OLANZapine 5 MG TABLET PO SCH (20:06)
[2022-09-02] MEDS: ZOLPIDEM TARTRATE 10 MG TABLET PO PRN (20:06)
[2022-09-02 21:40] VITALS: BP 101/69; PULSE 86; RESP 17; TEMP 97.8; O2SAT 96
[2022-09-03] MEDS: LORazepam 2 MG TABLET PO PRN (07:54)
[2022-09-03] MEDS: FLUoxetine HCL 20 MG CAPSULE PO SCH (08:00)
[2022-09-03 08:35] VITALS: BP 117/75; PULSE 96; RESP 17; TEMP 98.6
[2022-09-03] MEDS ORDERED: NICOTINE POLACRILEX 2 MG LOZENGE PO PRN (09:45)
[2022-09-03] MEDS: NICOTINE POLACRILEX 2 MG LOZENGE PO PRN ×3 (09:55→18:16)
[2022-09-03] MEDS: HALOPERIDOL 5 MG TABLET PO PRN (16:33)
[2022-09-03] MEDS: ZOLPIDEM TARTRATE 10 MG TABLET PO PRN (20:15)
[2022-09-03] MEDS: LORazepam 1 MG TABLET PO PRN (20:15)
[2022-09-03] MEDS: OLANZapine 5 MG TABLET PO SCH (20:15)
[2022-09-03 20:41] VITALS: BP 133/92; PULSE 92; RESP 19; TEMP 97.3; O2SAT 98
[2022-09-04 08:05] VITALS: BP 106/66; PULSE 75; RESP 16; TEMP 97.7; O2SAT 97
[2022-09-04] MEDS: FLUoxetine HCL 20 MG CAPSULE PO SCH (08:11)
[2022-09-04] MEDS: NICOTINE POLACRILEX 2 MG LOZENGE PO PRN ×3 (08:13→20:08)
[2022-09-04] MEDS: LORazepam 1 MG TABLET PO PRN ×2 (10:14→22:24)
[2022-09-04] MEDS: HALOPERIDOL 5 MG TABLET PO PRN (15:39)
[2022-09-04 20:01] VITALS: BP 137/90; PULSE 90; RESP 17; TEMP 97.8; O2SAT 98
[2022-09-04] MEDS: OLANZapine 5 MG TABLET PO SCH (20:08)
[2022-09-05] MEDS: LORazepam 1 MG TABLET PO PRN ×2 (06:01→22:18)
[2022-09-05] MEDS: FLUoxetine HCL 20 MG CAPSULE PO SCH (08:04)
[2022-09-05 08:24] VITALS: BP 147/91; PULSE 74; RESP 18; TEMP 97; O2SAT 95
[2022-09-05] MEDS: NICOTINE POLACRILEX 2 MG LOZENGE PO PRN ×3 (09:54→20:22)
[2022-09-05] MEDS: HALOPERIDOL 5 MG TABLET PO PRN (16:45)
[2022-09-05] MEDS: OLANZapine 5 MG TABLET PO SCH (20:22)
[2022-09-05 20:29] VITALS: BP 136/84; PULSE 91; RESP 18; TEMP 97.8; O2SAT 96
[2022-09-06 08:13] VITALS: BP 98/58; PULSE 80; RESP 18; TEMP 97.6; O2SAT 97
[2022-09-06] MEDS: FLUoxetine HCL 20 MG CAPSULE PO SCH (08:34)
[2022-09-06] MEDS: NICOTINE POLACRILEX 2 MG LOZENGE PO PRN ×3 (09:18→18:22)
[2022-09-06] MEDS: LORazepam 1 MG TABLET PO PRN (10:34)
[2022-09-06] MEDS: HALOPERIDOL 5 MG TABLET PO PRN (15:51)
[2022-09-06 20:23] VITALS: BP 108/78; PULSE 88; RESP 16; TEMP 97.8; O2SAT 97
[2022-09-06] MEDS: OLANZapine 5 MG TABLET PO SCH (20:34)
[2022-09-06] MEDS: ZOLPIDEM TARTRATE 10 MG TABLET PO PRN (20:44)
[2022-09-07] MEDS: FLUoxetine HCL 20 MG CAPSULE PO SCH (08:03)
[2022-09-07] MEDS: NICOTINE POLACRILEX 2 MG LOZENGE PO PRN ×3 (08:06→16:52)
[2022-09-07 08:30] VITALS: BP 125/75; PULSE 89; RESP 18; O2SAT 98
[2022-09-07] MEDS: LORazepam 1 MG TABLET PO PRN (08:54)
[2022-09-07] MEDS: BENZOCAINE/MENTHOL LOZENGE PO PRN (18:48)
[2022-09-07] MEDS: OLANZapine 5 MG TABLET PO SCH (20:28)
[2022-09-07 20:32] VITALS: BP 132/84; PULSE 80; RESP 18; TEMP 96.1; O2SAT 97
[2022-09-07] MEDS: ZOLPIDEM TARTRATE 10 MG TABLET PO PRN (20:49)
[2022-09-08] MEDS: FLUoxetine HCL 20 MG CAPSULE PO SCH (08:01)
[2022-09-08] MEDS: NICOTINE POLACRILEX 2 MG LOZENGE PO PRN ×4 (08:31→19:58)
[2022-09-08 08:32] VITALS: BP 129/84; PULSE 81; RESP 17; TEMP 97.8; O2SAT 98
[2022-09-08] MEDS: LORazepam 1 MG TABLET PO PRN (12:26)
[2022-09-08] MEDS: HALOPERIDOL 5 MG TABLET PO PRN (13:51)
[2022-09-08] MEDS: ZOLPIDEM TARTRATE 10 MG TABLET PO PRN (20:47)
[2022-09-08] MEDS: OLANZapine 5 MG TABLET PO SCH (20:47)
[2022-09-08 20:55] VITALS: BP 124/86; PULSE 79; RESP 18; TEMP 97.7; O2SAT 98
[2022-09-09] MEDS: FLUoxetine HCL 20 MG CAPSULE PO SCH (08:19)
[2022-09-09] MEDS: NICOTINE POLACRILEX 2 MG LOZENGE PO PRN ×3 (08:25→18:24)
[2022-09-09 08:47] VITALS: BP 117/82; PULSE 94; RESP 18; TEMP 98.2; O2SAT 97
[2022-09-09] MEDS: LORazepam 1 MG TABLET PO PRN (11:46)
[2022-09-09] MEDS: MULTIVITAMINS WITH MINERALS, THERAPEUTIC TABLET PO SCH (13:47)
[2022-09-09] MEDS: BENZOCAINE/MENTHOL LOZENGE PO PRN (16:07)
[2022-09-09] MEDS: HALOPERIDOL 5 MG TABLET PO PRN (16:55)
[2022-09-09] MEDS: OLANZapine 5 MG TABLET PO SCH (21:26)
[2022-09-09] MEDS: ZOLPIDEM TARTRATE 10 MG TABLET PO PRN (21:26)
[2022-09-09 23:30] VITALS: BP 124/83; PULSE 88; RESP 18; TEMP 98; O2SAT 98
[2022-09-10] MEDS: NICOTINE POLACRILEX 2 MG LOZENGE PO PRN ×3 (07:52→16:57)
[2022-09-10 08:14] VITALS: BP 124/74; PULSE 96; RESP 16; TEMP 98.2; O2SAT 98
[2022-09-10] MEDS: MULTIVITAMINS WITH MINERALS, THERAPEUTIC TABLET PO SCH (08:54)
[2022-09-10] MEDS: FLUoxetine HCL 20 MG CAPSULE PO SCH (08:54)
[2022-09-10] MEDS: LORazepam 1 MG TABLET PO PRN (08:55)
[2022-09-10] MEDS: BENZOCAINE/MENTHOL LOZENGE PO PRN (13:55)
[2022-09-10 20:06] VITALS: BP 149/90; PULSE 78; RESP 20; TEMP 97.5; O2SAT 98
[2022-09-10] MEDS: ZOLPIDEM TARTRATE 10 MG TABLET PO PRN (20:29)
[2022-09-10] MEDS: OLANZapine 5 MG TABLET PO SCH (20:29)
[2022-09-11 08:15] VITALS: BP 109/66; PULSE 81; RESP 16; TEMP 97.7; O2SAT 97
[2022-09-11] MEDS: FLUoxetine HCL 20 MG CAPSULE PO SCH (08:25)
[2022-09-11] MEDS: MULTIVITAMINS WITH MINERALS, THERAPEUTIC TABLET PO SCH (08:25)
[2022-09-11] MEDS: NICOTINE POLACRILEX 2 MG LOZENGE PO PRN ×3 (08:28→18:34)
[2022-09-11] MEDS: LORazepam 1 MG TABLET PO PRN (09:00)
[2022-09-11] MEDS: OLANZapine 5 MG TABLET PO SCH (20:04)
[2022-09-11] MEDS: ZOLPIDEM TARTRATE 10 MG TABLET PO PRN (20:49)
[2022-09-11 21:19] VITALS: BP 107/76; PULSE 73; RESP 18; TEMP 97.8; O2SAT 96
[2022-09-12] MEDS: NICOTINE POLACRILEX 2 MG LOZENGE PO PRN ×4 (08:00→20:12)
[2022-09-12] MEDS: MULTIVITAMINS WITH MINERALS, THERAPEUTIC TABLET PO SCH (08:00)
[2022-09-12] MEDS: FLUoxetine HCL 20 MG CAPSULE PO SCH (08:00)
[2022-09-12 08:09] VITALS: BP 113/65; PULSE 68; RESP 16; TEMP 97.5; O2SAT 97
[2022-09-12] MEDS: LORazepam 1 MG TABLET PO PRN (09:40)
[2022-09-12 20:00] VITALS: BP 138/86; PULSE 80; RESP 19; TEMP 97.8; O2SAT 98
[2022-09-12] MEDS: ZOLPIDEM TARTRATE 10 MG TABLET PO PRN (20:12)
[2022-09-12] MEDS: OLANZapine 5 MG TABLET PO SCH (20:12)
[2022-09-13 08:08] VITALS: BP 118/75; PULSE 85; RESP 18; TEMP 98; O2SAT 95
[2022-09-13] MEDS: MULTIVITAMINS WITH MINERALS, THERAPEUTIC TABLET PO SCH (08:15)
[2022-09-13] MEDS: FLUoxetine HCL 20 MG CAPSULE PO SCH (08:15)
[2022-09-13] MEDS: NICOTINE POLACRILEX 2 MG LOZENGE PO PRN ×4 (08:57→19:39)
[2022-09-13] MEDS: LORazepam 1 MG TABLET PO PRN (09:51)
[2022-09-13] MEDS: OLANZapine 5 MG TABLET PO SCH (20:08)
[2022-09-13] MEDS: ZOLPIDEM TARTRATE 10 MG TABLET PO PRN (20:08)
[2022-09-13 21:08] VITALS: BP 106/73; PULSE 65; RESP 18; TEMP 98.1; O2SAT 97
[2022-09-14 08:30] VITALS: BP 101/74; PULSE 91; RESP 16; TEMP 97.9; O2SAT 98
[2022-09-14] MEDS: LORazepam 1 MG TABLET PO PRN (09:29)
[2022-09-14] MEDS: FLUoxetine HCL 20 MG CAPSULE PO SCH (09:29)
[2022-09-14] MEDS: NICOTINE POLACRILEX 2 MG LOZENGE PO PRN ×4 (09:29→19:38)
[2022-09-14] MEDS: MULTIVITAMINS WITH MINERALS, THERAPEUTIC TABLET PO SCH (09:29)
[2022-09-14 20:03] VITALS: BP 116/78; PULSE 84; RESP 18; TEMP 97.8; O2SAT 98
[2022-09-14] MEDS: OLANZapine 5 MG TABLET PO SCH (20:24)
[2022-09-14] MEDS: ZOLPIDEM TARTRATE 10 MG TABLET PO PRN (20:24)
[2022-09-15] MEDS: MULTIVITAMINS WITH MINERALS, THERAPEUTIC TABLET PO SCH (08:10)
[2022-09-15] MEDS: FLUoxetine HCL 20 MG CAPSULE PO SCH (08:10)
[2022-09-15 09:00] VITALS: BP 109/80; PULSE 92; RESP 17; TEMP 97.7; O2SAT 97
[2022-09-15] MEDS: NICOTINE POLACRILEX 2 MG LOZENGE PO PRN ×4 (09:00→18:59)
[2022-09-15] MEDS: LORazepam 1 MG TABLET PO PRN ×2 (09:32→20:23)
[2022-09-15] MEDS: ZOLPIDEM TARTRATE 10 MG TABLET PO PRN (20:23)
[2022-09-15] MEDS: OLANZapine 5 MG TABLET PO SCH (20:23)
[2022-09-15 21:04] VITALS: BP 104/66; PULSE 89; RESP 18; TEMP 97.9; O2SAT 96
[2022-09-16 08:18] VITALS: RESP 18
[2022-09-16] MEDS: MULTIVITAMINS WITH MINERALS, THERAPEUTIC TABLET PO SCH (09:04)
[2022-09-16] MEDS: FLUoxetine HCL 20 MG CAPSULE PO SCH (09:04)
[2022-09-16] MEDS: NICOTINE POLACRILEX 2 MG LOZENGE PO PRN ×4 (09:05→22:07)
[2022-09-16] MEDS: LORazepam 1 MG TABLET PO PRN ×2 (09:25→23:19)
[2022-09-16 14:58] VITALS: BP 117/77; PULSE 92; RESP 18; TEMP 97.3; O2SAT 97
[2022-09-16] MEDS: OLANZapine 5 MG TABLET PO SCH (20:46)
[2022-09-16 21:14] VITALS: BP 129/92; PULSE 87; RESP 16; TEMP 97.4; O2SAT 97
[2022-09-16] MEDS: ZOLPIDEM TARTRATE 10 MG TABLET PO PRN (23:58)
[2022-09-17] MEDS: NICOTINE POLACRILEX 2 MG LOZENGE PO PRN ×6 (01:11→19:48)
[2022-09-17 08:05] VITALS: BP 109/70; PULSE 73; RESP 19; TEMP 96.9; O2SAT 97
[2022-09-17] MEDS: FLUoxetine HCL 20 MG CAPSULE PO SCH (08:13)
[2022-09-17] MEDS: MULTIVITAMINS WITH MINERALS, THERAPEUTIC TABLET PO SCH (08:13)
[2022-09-17] MEDS: LORazepam 1 MG TABLET PO PRN (09:44)
[2022-09-17 20:00] VITALS: BP 107/74; PULSE 104; RESP 20; TEMP 97.4; O2SAT 96
[2022-09-17] MEDS: ZOLPIDEM TARTRATE 10 MG TABLET PO PRN (20:00)
[2022-09-17] MEDS: OLANZapine 5 MG TABLET PO SCH (20:00)
[2022-09-18] MEDS: FLUoxetine HCL 20 MG CAPSULE PO SCH (08:54)
[2022-09-18] MEDS: MULTIVITAMINS WITH MINERALS, THERAPEUTIC TABLET PO SCH (08:54)
[2022-09-18] MEDS: NICOTINE POLACRILEX 2 MG LOZENGE PO PRN ×2 (09:29→16:32)
[2022-09-18] MEDS: LORazepam 1 MG TABLET PO PRN (10:58)
[2022-09-18 19:20] VITALS: RESP 18; TEMP 97.8
[2022-09-18 20:02] VITALS: BP 104/73; PULSE 81; RESP 18; TEMP 97.6; O2SAT 98
[2022-09-18] MEDS: OLANZapine 5 MG TABLET PO SCH (20:58)
[2022-09-19 08:03] VITALS: BP 100/63; PULSE 76; RESP 16; TEMP 98.3; O2SAT 97
[2022-09-19] MEDS: FLUoxetine HCL 20 MG CAPSULE PO SCH (08:41)
[2022-09-19] MEDS: MULTIVITAMINS WITH MINERALS, THERAPEUTIC TABLET PO SCH (08:41)
[2022-09-19] MEDS: NICOTINE POLACRILEX 2 MG LOZENGE PO PRN ×3 (09:02→16:32)
[2022-09-19 20:04] VITALS: BP 117/79; PULSE 89; RESP 18; TEMP 97.6; O2SAT 96
[2022-09-19] MEDS: OLANZapine 5 MG TABLET PO SCH (20:12)
[2022-09-19] MEDS: ZOLPIDEM TARTRATE 10 MG TABLET PO PRN (21:15)
[2022-09-20 08:03] VITALS: BP 100/64; PULSE 74; RESP 16; TEMP 98.2; O2SAT 97
[2022-09-20] MEDS: MULTIVITAMINS WITH MINERALS, THERAPEUTIC TABLET PO SCH (08:18)
[2022-09-20] MEDS: FLUoxetine HCL 20 MG CAPSULE PO SCH (08:18)
[2022-09-20] MEDS: NICOTINE POLACRILEX 2 MG LOZENGE PO PRN ×3 (08:39→17:04)
[2022-09-20 10:55] VITALS: BP 109/72; PULSE 82; RESP 16
[2022-09-20] MEDS: LORazepam 1 MG TABLET PO PRN (10:57)
[2022-09-20] MEDS: OLANZapine 5 MG TABLET PO SCH (20:06)
[2022-09-20 20:14] VITALS: BP 110/67; PULSE 85; RESP 18; TEMP 97.8; O2SAT 97
[2022-09-20] MEDS: ZOLPIDEM TARTRATE 10 MG TABLET PO PRN (20:53)
[2022-09-21 08:20] VITALS: BP 109/68; PULSE 76; RESP 16; TEMP 98.6; O2SAT 99
[2022-09-21] MEDS: MULTIVITAMINS WITH MINERALS, THERAPEUTIC TABLET PO SCH (08:31)
[2022-09-21] MEDS: FLUoxetine HCL 20 MG CAPSULE PO SCH (08:32)
[2022-09-21] MEDS: NICOTINE POLACRILEX 2 MG LOZENGE PO PRN ×3 (10:14→19:40)
[2022-09-21] MEDS: HALOPERIDOL 5 MG TABLET PO PRN (18:36)
[2022-09-21] MEDS: LORazepam 1 MG TABLET PO PRN (18:36)
[2022-09-21] MEDS: OLANZapine 5 MG TABLET PO SCH (20:28)
[2022-09-21 20:39] VITALS: BP 128/76; PULSE 84; RESP 18; TEMP 97.8
[2022-09-21] MEDS: ZOLPIDEM TARTRATE 10 MG TABLET PO PRN (20:46)
[2022-09-22 08:16] VITALS: BP 108/61; PULSE 76; RESP 18; TEMP 97.5; O2SAT 100
[2022-09-22] MEDS: MULTIVITAMINS WITH MINERALS, THERAPEUTIC TABLET PO SCH (08:19)
[2022-09-22] MEDS: FLUoxetine HCL 20 MG CAPSULE PO SCH (08:19)
[2022-09-22] MEDS: NICOTINE POLACRILEX 2 MG LOZENGE PO PRN ×2 (08:55→15:30)
[2022-09-22] MEDS: LORazepam 1 MG TABLET PO PRN (10:22)
== END 2022-09-22 17:24 | disposition home or self-care (01) | DRG 885 ==
LOC: B2X 20:40
PROVIDERS: ADMIT Psychiatry & Neurology Psychiatry; ATTEND Psychiatry & Neurology Psychiatry
DX: F20.0 Paranoid schizophrenia (principal); F41.9 Anxiety disorder, unspecified; F19.10 Other psychoactive substance abuse, uncomplicated; K59.00 Constipation, unspecified; K21.9 Gastro-esophageal reflux disease without esophagitis; F17.200 Nicotine dependence, unspecified, uncomplicated; G47.00 Insomnia, unspecified; Z76.5 Malingerer [conscious simulation]; Z91.010 Allergy to peanuts; Z91.018 Allergy to other foods; Z79.899 Other long term (current) drug therapy
CPT/HCPCS: 80061; 83036; 87081; Q9967

== ENCOUNTER → 2023-08-25 | Outpatient (CLI) | payer MEDICARE, OTHER ==
[~2023-08-25] MED LIST changes: -BENZ1TAB84 PO; -DIVA-112 PO; -FLUO20CA36 PO; +HALO5TAB23 PO; +OLAN10TA26 PO; -OLAN5TAB52 PO; +VALP250S23 PO
== END | disposition home or self-care (01) ==
LOC: RADMN 15:43
PROVIDERS: ATTEND Internal Medicine
DX: I34.0 Nonrheumatic mitral (valve) insufficiency (principal); R06.00 Dyspnea, unspecified; I51.7 Cardiomegaly
CPT/HCPCS: 93306